=== PATIENT | female | born 1945 | race Caucasian/White ===

== ENCOUNTER 2016-04-19 11:27 | Inpatient (IN) | payer MEDICARE, OTHER ==
[~2016-04-19] VITALS: Ht 147.3 cm; Wt 78.0 kg
[2016-04-19] VITALS (14 sets, daily range): BP systolic 115–177; BP diastolic 58–91; PULSE 68–98; RESP 12–16; TEMP 97.5–97.6; O2SAT 92–100
[~2016-04-19 11:27] MED LIST: ACET325 PO; ALBU0.086 NEB; CARV3.12 PO; CLOP75 PO; DOCU1CAP39 PO; FURO20 PO; GLIP5 PO; GLUC1KIT IM; GLUC40GE PO; GLYB1TAB50 PO; HUMSS; IPRAAER INH; ISOS30 PO; KCL20 PO; LACT10SO27 PO; LEXA10TA PO; LISI5 PO; MEDR4PAK3 PO; PERC10TA27 PO; SENN-29 PO; SUCR1TAB PO
[2016-04-19] MEDS ORDERED: SODIUM CHLOR 0.9% 1000 ML INJ 1,000 ML IV ONE ×3 (11:32→11:54)
[2016-04-19 11:42] LABS: I-STAT POTASSIUM 4.2 MMOL/L (3.5-4.9); I-STAT SODIUM 140 MMOL/L (138-146)
[2016-04-19 11:46] LABS: AUTOMATED NEUTROPHIL # 12.8 TH/MM3 (1.8-7.7); BASOPHIL % 0.2 % (0.0-2.0); EOSINOPHIL % 0.2 % (0.0-4.0); HEMATOCRIT 34.1 % (35.0-46.0); LYMPH % 8.8 % (9.0-44.0); LYMPHOCYTE # 1.4 TH/MM3 (1.0-4.8); MEAN CELL VOLUME 89.4 FL (80.0-100.0); MEAN CORPUSCULAR HGB CONC 31.3 % (32.0-36.0); MONO % 7.9 % (0.0-8.0); NEUT % 82.9 % (16.0-70.0); PLATELET COUNT 225 TH/MM3 (150-450); RED BLOOD COUNT 3.82 MIL/MM3 (4.00-5.30); RED CELL DISTRIBUTION WIDTH 18.8 % (11.6-17.2); WHITE BLOOD COUNT 15.4 TH/MM3 (4.0-11.0)
[2016-04-19] MEDS ORDERED: VANCOMYCIN INJ 1,000 MG in SODIUM CHLOR 0.9% 250 ML INJ 250 ML IV STA (11:54)
[2016-04-19] MEDS ORDERED: PIPERACIL-TAZO 4.5 GM PREMIX 100 ML IV STA (11:54)
[2016-04-19] MEDS ORDERED: SODIUM CHLOR 0.9% 1000 ML INJ 100 ML IV ONE (11:54)
[2016-04-19 11:55] LABS: HEMO FLAGS AUTO DIFF
--- NOTE | 2016-04-19 11:56 | RADRPT ---
EXAM DATE/TIME: 04/19/2016 11:37 [facility] COMPARISON: CT BRAIN W/O CONTRAST, February 01, 2016, 1:43. INDICATIONS : Found unresponsive RADIATION DOSE: 56.35 CTDIvol (mGy) This report was called by Dr. Archuleta to Dr. Muir at 11: 50am MEDICAL HISTORY : Hypertension. Diabetes mellitus type 1. SURGICAL HISTORY : None. ENCOUNTER: Initial ACUITY: 1 day PAIN SCALE: Non-responsive LOCATION: cranial TECHNIQUE: Multiple contiguous axial images were obtained of the head. Using automated exposure control and adj ustment of the mA and/or kV according to patient size, radiation dose was kept as low as reasonably a chievable to obtain optimal diagnostic quality images. FINDINGS: CEREBRUM: The ventricles are normal for age. There is cortical atrophy and moderate microvascular ischemic demy elinative change. No evidence of midline shift, mass lesion, hemorrhage or acute infarction. No ext ra-axial fluid collections are seen. POSTERIOR FOSSA: The cerebellum and brainstem are intact. The 4th ventricle is midline. The cerebellopontine angle i s unremarkable. EXTRACRANIAL: The visualized portion of the orbits is intact. SKULL: The calvaria is intact. No evidence of skull fracture. CONCLUSION: Cortical atrophy and microvascular ischemic demyelinative change. No acute intracranial abnormality i s seen. Reinier Archuleta MD on April 19, 2016 at 11:50 Board Certified Radiologist. This report was verified electronically.
[2016-04-19 11:59] LABS: APTT (PATIENT) 31.3 SEC (24.3-30.1); INTERNATIONAL NORMALIZED RATIO 1.1 RATIO; PROTHROMBIN TIME - PATIENT 12.2 SEC (9.8-11.6)
--- NOTE | 2016-04-19 12:02 | PD ---
HPI Chief Complaint: Stroke Alert Time Seen by Provider: 11:32 Travel History International Travel<30 days: No Contact w/Intl Traveler<30days: No Traveled to known affect area: No History of Present Illness HPI Patient is a 70-year-old female with past medical history of HTN, HLD, DM, dementia, COPD, CAD who presents the emergency department for altered mental status as a stroke alert. Reportedly per patient's care facility, [facility] and [facility], patient was awake and alert and conversing this morning. At approximately 11 AM her mental status decompensated, she is now essentially completely unresponsive and EMS was called. Blood glucose was normal. Reportedly last arm normal at 11 AM. No focal deficit of the extremities, but patient is entirely nonverbal and given her acute change in mental status a stroke alert was called prehospital. Patient is altered and not able to participate with history or physical examination. She is anticoagulated on Plavix. PFSH Past Medical History Depression: Yes Congestive Heart Failure: Yes COPD: Yes Diabetes: Yes Diminished Hearing: No GERD: Yes Hypertension: Yes Neurologic: Yes (NEUROPATHY) ?: Not Past Surgical History Other Surgery: Yes (L AKA) Social History Alcohol Use: No Tobacco Use: No Substance Use: No Allergies-Medications (Allergen,Severity, Reaction): Coded Allergies: Aspirin (Unverified Adverse Reaction, Unknown, 01/31/16) Reported Meds & Prescriptions Reported Meds & Active Scripts Active Reported Albuterol Neb (Albuterol Sulfate) 2.5 Mg/3 Ml Neb 1 Vial NEB Q6HR PRN Combivent Respimat Inh (Ipratropium-Albuterol Inh) 20-100 Shelter/Act Aero 1 Puff INH QID Tylenol (Acetaminophen) 325 Mg Tab 650 Mg PO Q4H PRN Percocet (Oxycodone-Acetaminophen) 10-325 mg Tab 1 Tab PO Q6H PRN Senna (Sennosides) 8.6 Mg Tab 17.2 Mg PO HS Lactulose Liq (Lactulose) 10 Gm/15 Ml Soln 30 Ml PO HS Hold for loose stools Carafate (Sucralfate) 1 Gm Tab 1 Gm PO ACHS On empty stomach Nitro-Dur Patch 24 HR (Nitroglycerin) 0.1 Mg/Hr Patch 0.1 Mg T-DERMAL DAILY Prednisone 20 Mg Tab 20 Mg PO DIRECTED Titrating Dose Protonix Liq (Pantoprazole Sodium) 40 Mg Pkt 40 Mg PO DAILY Potassium Chloride Liq (Potassium Chloride) 20 Meq/15 Ml Soln 40 Meq PO DAILY Lasix (Furosemide) 20 Mg Tab 20 Mg PO DAILY Lisinopril 2.5 Mg Tab 2.5 Mg PO BID Hold if SBP <105 or DBP < 65 Coreg (Carvedilol) 3.125 Mg Tab 3.125 Mg PO BID Hold for SBP <100 or DBP <60 Colace (Docusate Sodium) 100 Mg Cap 100 Mg PO BID Hold for loose stool Milk of Magnesia Liq (Magnesium Hydroxide) 400 Mg/5 Ml Susp 30 Ml PO DAILY PRN Omeprazole 40 Mg Cap 40 Mg PO DAILY Glucose Gel (Dextrose) 40 % Gel 1 Tube PO DIRECTED PRN Glucagon Emergency Inj Kit (Glucagon (Rdna) Inj Kit) 1 Mg Kit 1 Mg IM ONCE PRN Glipizide 5 Mg Tab 5 Mg PO DAILY Take 30 minutes before a meal Humalog Inj (Insulin Human Lispro) 1,000 Unit/10 Ml Vial 2-6 Units SQ ACHS Sliding Scale: call md if CBG <60MG?DL or >300MG/DL, 0-59=0 units, notify MD, 60-150=0 units, 151-200=2 units, 201-250=4 units, 251-300=6 units, > 300=6 units/call Lantus Inj (Insulin Glargine) 100 Unit/Ml Inj 15 Units SQ DAILY Plavix (Clopidogrel Bisulfate) 75 Mg Tab 75 Mg PO DAILY Zithromax (Azithromycin) 500 Mg Tab 500 Mg PO DAILY 5 Days Lexapro (Escitalopram Oxalate) 10 Mg Tab 10 Mg PO DAILY Review of Systems ROS Limitations: Clinical Condition, Altered Mental Status Physical Exam Exam Limitations: Clinical Condition, Altered Mental Status Narrative GENERAL: Obese female in no acute distress SKIN: Warm and dry. HEAD: Normocephalic. EYES: Pupils equal and round. 3 mm. No scleral icterus. No injection or drainage. ENT: No nasal bleeding or discharge. Mucous membranes dry. Gag reflex intact. NECK: Supple without nuchal rigidity CARDIOVASCULAR: Regular rate and rhythm. No murmur appreciated. RESPIRATORY: No accessory muscle use. Clear to auscultation. Breath sounds equal bilaterally. GASTROINTESTINAL: Abdomen soft, non-tender, nondistended. Obese MUSCULOSKELETAL: No obvious deformities. Left lower extremity AKA NEUROLOGICAL: Unresponsive. Patient does not follow any commands, answer questions appropriately. Nonverbal. She is not able to test for visual garces , but no gaze deficit. No facial palsy. Patient does not move the arms of the legs at all. She does have a left lower extremity AKA. No obvious ataxia, unable to test for this. With noxious stimuli patient does not respond. Patient is mute without any speech. No obvious neglect. NIHSS 24. PSYCHIATRIC: Deferred given mental status Data Data Last Documented VS Vital Signs Date Time Temp Pulse Resp B/P Pulse Ox O2 Delivery O2 Flow Rate FiO2 04/19/16 12:49 79 14 177/91 100 Ventilator 100 04/19/16 11:50 15 04/19/16 11:31 97.6 Orders Diet Npo (04/19/16 Lunch) Activity Bed Rest (04/19/16 ) Electrocardiogram (04/19/16 ) I-Stat Creatinine (04/19/16 11:32) I-Stat Profile (04/19/16 11:32) Prothrombin Time / Inr (Pt) (04/19/16 11:32) Act Partial Throm Time (Ptt) (04/19/16 11:32) Complete Blood Count With Diff (04/19/16 11:32) Fibrinogen (04/19/16 11:32) Creatine Kinase (Cpk) (04/19/16 11:32) Troponin I (04/19/16 11:32) Ua Includes Microscopic (04/19/16 11:32) Drug Screen, Random Urine (04/19/16 11:32) Type And Screen (04/19/16 11:32) Ct Brain W/O Iv Contrast(Rout) (04/19/16 ) Consult Neurology (04/19/16 ) Blood Glucose (04/19/16 11:32) Ecg Monitoring (04/19/16 11:32) Neuro Checks Q2HX12,Q4H (04/19/16 11:32) Nursing Bedside Swallow Assess .ONCE (04/19/16 11:32) Iv Access Insert/Monitor (04/19/16 11:32) NPO (04/19/16 11:32) Oximetry (04/19/16 11:32) Oxygen Administration (04/19/16 11:32) Sodium Chlor 0.9% 1000 Ml Inj (Ns 1000 M (04/19/16 11:32) Resp Oxygen Kimo C Titrat 1-4 L (04/19/16 11:32) Cath For Specimen (04/19/16 11:32) Lactic Acid Sepsis Protocol (04/19/16 11:32) Urinalysis - C+S If Indicated (04/19/16 11:32) Blood Culture (04/19/16 11:32) Chest, Single Ap (04/19/16 11:32) Vancomycin Inj (Vancomycin Inj) (04/19/16 11:54) Piperacil-Tazo 4.5 Gm Premix (Zosyn 4.5 (04/19/16 11:54) Sodium Chlor 0.9% 1000 Ml Inj (Ns 1000 M (04/19/16 11:54) Sodium Chlor 0.9% 1000 Ml Inj (Ns 1000 M (04/19/16 11:54) Sodium Chlor 0.9% 1000 Ml Inj (Ns 1000 M (04/19/16 11:54) Influenzae A/B Antigen (04/19/16 12:07) Pneumococcal Urinary Antigen (04/19/16 12:07) Legionella Urinary Antigen (04/19/16 12:07) Chest, Single Ap (04/19/16 12:11) Arterial Blood Gas (Abg) (04/19/16 12:11) Ng Gastric Tube Insert/Monitor (04/19/16 12:11) Urinary Catheter Insert/Apply (04/19/16 12:11) Etomidate Inj (Amidate Inj) (04/19/16 12:15) Succinylcholine Inj (Quelicin Inj) (04/19/16 12:15) Sodium Chloride 0.9% Flush (Ns Flush) (04/19/16 12:15) (Hub Use Only)Inp Phy Cons/Ref (04/19/16 ) Phenylephrine Inj (Neosynephrine Inj) (04/19/16 12:25) Phenyleph/Ns 1000 Mcg/10ml Syr (Neosynep (04/19/16 12:26) Restraints Non-Violent SHYLA.Q3H (04/19/16 12:33) Admit Order (Ed Use Only) (04/19/16 12:58) Labs Laboratory Tests Test 04/19/16 04/19/16 04/19/16 12/20/16 11:30 12:05 12:40 13:00 White Blood Count 15.4 TH/MM3 Red Blood Count 3.82 MIL/MM3 Hemoglobin 10.7 GM/DL Bedside Hemoglobin 12.2 G/DL Hematocrit 34.1 % Bedside Hematocrit 36.0 % Mean Corpuscular Volume 89.4 FL Mean Corpuscular Hemoglobin 28.0 PG Mean Corpuscular Hemoglobin 31.3 % Concent Red Cell Distribution Width 18.8 % Platelet Count 225 TH/MM3 Mean Platelet Volume 9.8 FL Neutrophils (%) (Auto) 82.9 % Lymphocytes (%) (Auto) 8.8 % Monocytes (%) (Auto) 7.9 % Eosinophils (%) (Auto) 0.2 % Basophils (%) (Auto) 0.2 % Neutrophils # (Auto) 12.8 TH/MM3 Lymphocytes # (Auto) 1.4 TH/MM3 Monocytes # (Auto) 1.2 TH/MM3 Eosinophils # (Auto) 0.0 TH/MM3 Basophils # (Auto) 0.0 TH/MM3 CBC Comment AUTO DIFF Differential Total Cells 100 Counted Neutrophils % (Manual) 86 % Band Neutrophils % 2 % Lymphocytes % 6 % Monocytes % 4 % Neutrophils # (Manual) 13.9 TH/MM3 Metamyelocytes 2 % Differential Comment FINAL DIFF MANUAL Platelet Estimate NORMAL Platelet Morphology Comment ENLARGED Red Cell Morphology Comment NORMAL Prothrombin Time 12.2 SEC Prothromb Time International 1.1 RATIO Ratio Activated Partial 31.3 SEC Thromboplast Time Fibrinogen 771 mg/dL Bedside Sodium 140 MMOL/L Bedside Potassium 4.2 MMOL/L Bedside Chloride 98 MMOL/L Bedside Blood Urea Nitrogen 24 MG/DL Bedside Creatinine 0.7 MG/DL Bedside Glucose 173 MG/DL Total Creatine Kinase 19 U/L Troponin I LESS THAN 0.02 NG/ML Lactic Acid Level 0.7 mmol/L Urine Color YELLOW Urine Turbidity HAZY Urine pH 5.5 Urine Specific [place] 1.019 Urine Protein 30 mg/dL Urine Glucose (UA) TRACE mg/dL Urine Ketones NEG mg/dL Urine Occult Blood NEG Urine Nitrite POS Urine Bilirubin NEG Urine Urobilinogen LESS THAN 2.0 MG/DL Urine Leukocyte Esterase LARGE Urine RBC 24 /hpf Urine WBC 62 /hpf Urine WBC Clumps MOD Urine Squamous Epithelial <1 /hpf Cells Urine Bacteria MANY /hpf Urine Hyaline Casts 30 /lpf Urine Yeast (Budding) MOD Microscopic Urinalysis Comment CATH-CULTURE IND Blood Gas Puncture Site LT BRACHIAL Blood Gas Patient Temperature 98.6 Blood Gas HCO3 32 mmol/L Blood Gas Base Excess 7.5 mmol/L Blood Gas Oxygen Saturation 96 % Arterial Blood pH 7.39 Arterial Blood Partial 54 mmHg Pressure CO2 Arterial Blood Partial 165 mmHG Pressure O2 Arterial Blood Oxygen Content 14.1 Vol % Arterial Blood 1.9 % Carboxyhemoglobin Arterial Blood Methemoglobin 1.4 % Blood Gas Hemoglobin 10.2 G/DL Oxygen Delivery Device VENTILATOR Blood Gas Ventilator Setting Blood Gas Inspired Oxygen 100 % MDM Medical Decision Making Medical Screen Exam Complete: Yes Emergency Medical Condition: Yes Medical Record Reviewed: Yes Differential Diagnosis 70-year-old female with past medical history of HTN, HLD, DM, dementia, COPD, CAD who presents the emergency department for altered mental status as a stroke alert. Patient is altered, Narrative Course NIHSS 24 calculated at 11:30. Patient is not a candidate for TPA as I do not believe this is a stroke, and she is anticoagulated on Plavix. Case was discussed with Dr. Dixon, neurology, who agrees this sounds more suspicious for infectious etiology and not CVA. Patient transported to CT emergently were CT of the brain was obtained and negative for any acute abnormalities. Patient was brought back to the emergency department in chest x-ray performed showing a right sided infiltrate. She was empirically treat with Zosyn, vancomycin, 30 mg /kg normal saline bolus. Patient reexamined serially, with progressive loss of gag reflex. Patient was intubated, please see procedure note. Repeat chest x- ray shows endotracheal tube in all OG tube in good position. Foote was placed. Twelve-lead EKG shows sinus rhythm with PVCs but no notable ST abnormalities, normal intervals. CBC, i-STAT, coags, fibrinogen, CPK, troponin, lactate, urinalysis, urine pneumococcal and Legionella antigen, influenza, blood cultures obtained and notable for CBC 15.4 with left shift. Fibrinogen 771. Critical Care Narrative Aggregate critical care time was 55 minutes. Time to perform other separately billable procedures was not included in the critical care time. My time did not include minutes spent treating any other patients simultaneously or on activities that did not directly contribute to the patient's treatment. The services I provided to this patient were to treat and/or prevent clinically significant deterioration that could result in: Neurologic decompensation, cardiopulmonary decompensation, , disability I provided critical care services requiring my management, as noted below: Chart data review, documentation time, medication orders and management, vital sign assessments/reviewing monitor data, ordering and reviewing lab tests, ordering and interpreting/reviewing x-rays and diagnostic studies, care of the patient and discussion of the patient with the admitting physicians. Procedures Procedure Narrative After the risks and benefits were discussed the following procedure was performed: INTUBATION: The patient was put in optimal position for the procedure. Rapid sequence intubation was initiated by me using 10 milligrams of etomidate IV and 150 milligrams of succinylcholine IV. The patient was intubated with a 8-0 cuffed endotracheal tube. Tube placement was confirmed by visualization of the tube and balloon passing through the cords, capnometry and subsequent chest x- ray. Breath sounds were equal and well aerated bilaterally postintubation. No breath sounds over stomach. Patient tolerated procedure well. Sepsis Criteria SIRS Criteria (2 or more): Heart rate over 90 Sepsis Criteria (SIRS+source): Infect source susp/known Severe Sepsis (+one): Organ Dysfunction Criteria Outcome: Meets SIRS criteria, Meets sepsis criteria, Meets severe sepsis criteria Diagnosis Primary Impression: Acute respiratory failure Qualified Code: J96.00 - Acute respiratory failure, unspecified whether with hypoxia or hypercapnia Additional Impressions: Severe sepsis Pneumonia Qualified Code: J18.1 - Pneumonia of right upper lobe due to infectious organism Altered mental status Qualified Code: R41.0 - Delirium Leukocytosis Qualified Code: D72.829 - Leukocytosis, unspecified type Urinary tract infection Qualified Code: N39.0 - Urinary tract infection with hematuria, site unspecified Admitting Information Admitting Physician Requests: Admit Liss Mauricio MD Apr 19, 2016 12:02
[2016-04-19 12:14] LABS: CREATINE KINASE 19 U/L (26-192)
--- NOTE | 2016-04-19 12:14 | RADRPT ---
EXAM DATE/TIME: 04/19/2016 11:46 [facility] COMPARISON: CHEST SINGLE AP, January 31, 2016, 23:08. INDICATIONS : Short of breath. MEDICAL HISTORY : None. SURGICAL HISTORY : None. ENCOUNTER: Initial ACUITY: 1 day PAIN SCORE: Non-responsive. LOCATION: Bilateral chest FINDINGS: There are new consolidation is in the right upper lobe. The left lung is clear. The heart and pulmon ashley vascularity are normal. The portion of the bony skeleton visualized is unremarkable. CONCLUSION: New consolidative changes right upper lobe suspicious for inflammatory process. Scott Archuleta MD FACR on April 19, 2016 at 12:09 Board Certified Radiologist. This report was verified electronically.
[2016-04-19] MEDS ORDERED: SUCCINYLCHOLINE CHLORIDE 200 MG/10 ML VIAL IVP ONE (12:15)
[2016-04-19] MEDS ORDERED: ETOMIDATE 20 MG/10 ML VIAL IVP ONE (12:15)
[2016-04-19] MEDS ORDERED: SODIUM CHLORIDE 0.9% FLUSH 5 ML FLUSH IVF PRN ×2 (12:15→14:45)
[2016-04-19] MEDS ORDERED: PHENYLEPHRINE HCL 10 MG/ML VIAL ONE (12:25)
[2016-04-19] MEDS ORDERED: PHENYLEPH/NS 1000 MCG/10 ML SYR ONE (12:26)
[2016-04-19 12:46] LABS: BANDS 2 % (0-6); METAMYELOCYTES 2 % (0-1); NEUTROPHIL # MANUAL DIFF 13.9 TH/MM3 (1.8-7.7); POLYS (SEG NEUTROPHILS) 86 % (16-70); WBC DIFF SAMPLE 100
[2016-04-19 12:47] LABS: PLATELET ESTIMATE SMEAR NORMAL (NORMAL); PLATELET MORPHOLOGY ENLARGED (NORMAL); SCAN/DIFF FINAL DIFF MANUAL
[2016-04-19 13:10] LABS: BLOOD GAS BASE EXCESS 7.5 mmol/L (-2-2); BLOOD GAS CARBOXYHEMOGLOBIN 1.9 % (0-4); BLOOD GAS HCO3 32 mmol/L (22-26); BLOOD GAS METHEMOGLOBIN 1.4 % (0-2); BLOOD GAS O2 HGB SATURATION 96 % (90-100); BLOOD GAS OXYGEN CONTENT 14.1 Vol % (12.0-20.0); BLOOD GAS PCO2 54 mmHg (38-42); BLOOD GAS PO2 165 mmHG (61-120); BLOOD GAS TOTAL HGB 10.2 G/DL (12.0-16.0); TEMP CORR TO 98.6
--- NOTE | 2016-04-19 13:10 | RADRPT ---
EXAM DATE/TIME: 04/19/2016 12:44 [facility] COMPARISON: CHEST SINGLE AP, April 19, 2016, 11:46. INDICATIONS: Post intubation. MEDICAL HISTORY: None. SURGICAL HISTORY: None. ENCOUNTER: Initial ACUITY: 1 day PAIN SCORE: Non-responsive. LOCATION: Bilateral chest FINDINGS: ET tube is in good position. Again seen is the consolidation in the right upper lobe. Left lung is clear. Heart and pulmonary vascularity is normal. CONCLUSION: ET tube in good position. Scott Archuleta MD FACR on April 19, 2016 at 13:06 Board Certified Radiologist. This report was verified electronically.
[2016-04-19 13:11] LABS: BACTERIA, URINE MANY /hpf; BLOOD, URINE NEG (NEG); GLUCOSE,URINE TRACE mg/dL (NEG); HYALINE CAST, URINE 30 /lpf (RARE); KETONE, URINE NEG (NEG); PH, URINE 5.5 (5.0-8.5); SQUAMOUS EPITHELIAL CELL URINE <1 /hpf (0-5); URINE COLOR YELLOW (YELLW/STRAW)
[2016-04-19 13:11] LABS: CRITICAL VALUE YES; DRAW SITE LT BRACHIAL; FIO2 100 %; NUMBER OF ARTERIAL PUNCTURES 1; OXYGEN DEVICE VENTILATOR; STAT YES; ULNAR PULSE PRESENT
[2016-04-19] MEDS ORDERED: GLIP5TAB8 PO (13:14)
[2016-04-19] MEDS ORDERED: OMEP40CA2 PO (13:14)
[2016-04-19] MEDS ORDERED: IPRAAER INH (13:14)
[2016-04-19] MEDS ORDERED: PRED20 PO (13:14)
[2016-04-19] MEDS ORDERED: TYLE325T PO (13:14)
[2016-04-19] MEDS ORDERED: CARV3.125 PO (13:14)
[2016-04-19] MEDS ORDERED: LISI2.5T3 PO (13:14)
[2016-04-19] MEDS ORDERED: NITR0.1D T-DERMAL (13:14)
[2016-04-19] MEDS ORDERED: PERC10TA27 PO (13:14)
[2016-04-19] MEDS ORDERED: ALBU0.08 NEB (13:14)
[2016-04-19] MEDS ORDERED: LANTUS2P SQ (13:14)
[2016-04-19] MEDS ORDERED: FURO1TAB62 PO (13:14)
[2016-04-19] MEDS ORDERED: ZITH500T PO (13:14)
[2016-04-19] MEDS ORDERED: PLAV75TA29 PO (13:14)
[2016-04-19] MEDS ORDERED: SENN8.6T5 PO (13:14)
[2016-04-19] MEDS ORDERED: LEXA10TA PO (13:14)
[2016-04-19] MEDS ORDERED: MILKSUS PO (13:14)
[2016-04-19] MEDS ORDERED: HUMALOG SQ (13:14)
[2016-04-19] MEDS ORDERED: PROTPAK PO (13:14)
[2016-04-19] MEDS ORDERED: LACT10SO PO (13:14)
[2016-04-19] MEDS ORDERED: CARA1TAB6 PO (13:14)
[2016-04-19] MEDS ORDERED: GLUC1KIT IM (13:14)
[2016-04-19] MEDS ORDERED: POTA10SO12 PO (13:14)
[2016-04-19] MEDS ORDERED: GLUC40GE PO (13:14)
[2016-04-19] MEDS ORDERED: COLA100C3 PO (13:14)
[2016-04-19 13:15] LABS: COMMENT (UR) CATH-CULTURE IND; CULTURE IF INDICATED CATH CULTURE IND; NITRITE,URINE POS (NEG)
[2016-04-19 13:28] LABS: AMPHETAMINE, URINE NEG (NEG); BARBITURATES, URINE NEG (NEG); COCAINE, URINE NEG (NEG)
[2016-04-19] MEDS ORDERED: Vancomycin Consult Pharmacy 1 EA OTHER SCH (14:45)
[2016-04-19] MEDS ORDERED: MISCELLANEOUS NURSING INFORMATION XX SCH (14:45)
[2016-04-19] MEDS ORDERED: CHLORHEXIDINE GLUCONATE 2 % 1 PACK (2 CLOTHS) TOP PRN (14:45)
[2016-04-19] MEDS: RESP: ALBUTEROL 2.5 MG/IPRATROPIUM 0.5 MG NEB (SCH) NEB ×2 (15:25→21:30)
[2016-04-19] MEDS: SODIUM CHLOR 0.9% 1000 ML INJ 1,000 ML IV SCH ×2 (15:44→23:12)
[2016-04-19] MEDS: ENOXAPARIN SODIUM 40 MG/0.4 ML SYRINGE SQ SCH (16:07)
--- NOTE | 2016-04-19 16:51 | HHI.HP ---
HPI Service Critical Care Medicine Primary Care Physician Unknown Admission Diagnosis acute resp failure, RUL pna, severe sepsis Diagnosis: Chief Complaint: altered mental status Travel History International Travel<30 Days: No Contact w/Intl Traveler <30 Da: No Traveled to Known Affected Are: No Sepsis Criteria SIRS Criteria (2 or more): Heart rate over 90, WBC > 14395, < 4000 or > 10% bands Sepsis Criteria (SIRS+source): Infect source susp/known Severe Sepsis (+one): Organ Dysfunction Criteria Outcome: Meets severe sepsis criteria History of Present Illness Patient is a 70-year-old female with past medical history of HTN, HLD, DM, dementia, COPD, CAD who presents the emergency department for altered mental status as a stroke alert. Reportedly per patient's care facility, [facility], patient was awake and alert and conversing this morning. At approximately 11 AM her mental status decompensated, she became essentially completely unresponsive and EMS was called. Blood glucose was normal. Reportedly last seen normal at 11 AM. No focal deficit of the extremities, but patient was entirely nonverbal and given her acute change in mental status a stroke alert was called prehospital. Patient was altered and not able to participate with history or physical examination. She is anticoagulated on Plavix. Patient was evaluated by ER physician and in view of inability to protect airway and unresponsiveness was intubated and placed on mechanical ventilation. She received a 10 mg and succinylcholine 150 mg for intubation however following that has not required any sedation. Chest x-ray showed right upper lobe infiltrate, head CT was negative for bleed. Case was discussed by ER physician and neurology Dr. Dixon, patient was not deemed to be a candidate for TPA and there was a question whether this was a stroke or sepsis with pneumonia/UTI causing altered mental status. Patient was accepted for admission by critical care medicine service. When I evaluated the patient she was orally intubated on mechanical ventilation essentially unresponsive. History was obtained by discussion with ER physician and reviewing records. History PFSH Past Medical History Depression: Yes Congestive Heart Failure: Yes COPD: Yes Diabetes: Yes Diminished Hearing: No GERD: Yes Hypertension: Yes Neurologic: Yes (NEUROPATHY) ?: Not Past Surgical History Other Surgery: Yes (L AKA) Social History Alcohol Use: No Tobacco Use: No Substance Use: No Allergies-Medications Allergies-Medications (Allergen,Severity, Reaction): Coded Allergies: Aspirin (Unverified Adverse Reaction, Unknown, 01/31/16) Reported Meds & Prescriptions Reported Meds & Active Scripts Active Reported Albuterol Neb (Albuterol Sulfate) 2.5 Mg/3 Ml Neb 1 Vial NEB Q6HR PRN Combivent Respimat Inh (Ipratropium-Albuterol Inh) 20-100 Snf/Act Aero 1 Puff INH QID Tylenol (Acetaminophen) 325 Mg Tab 650 Mg PO Q4H PRN Percocet (Oxycodone-Acetaminophen) 10-325 mg Tab 1 Tab PO Q6H PRN Senna (Sennosides) 8.6 Mg Tab 17.2 Mg PO HS Lactulose Liq (Lactulose) 10 Gm/15 Ml Soln 30 Ml PO HS Hold for loose stools Carafate (Sucralfate) 1 Gm Tab 1 Gm PO ACHS On empty stomach Nitro-Dur Patch 24 HR (Nitroglycerin) 0.1 Mg/Hr Patch 0.1 Mg T-DERMAL DAILY Prednisone 20 Mg Tab 20 Mg PO DIRECTED Titrating Dose Protonix Liq (Pantoprazole Sodium) 40 Mg Pkt 40 Mg PO DAILY Potassium Chloride Liq (Potassium Chloride) 20 Meq/15 Ml Soln 40 Meq PO DAILY Lasix (Furosemide) 20 Mg Tab 20 Mg PO DAILY Lisinopril 2.5 Mg Tab 2.5 Mg PO BID Hold if SBP <105 or DBP < 65 Coreg (Carvedilol) 3.125 Mg Tab 3.125 Mg PO BID Hold for SBP <100 or DBP <60 Colace (Docusate Sodium) 100 Mg Cap 100 Mg PO BID Hold for loose stool Milk of Magnesia Liq (Magnesium Hydroxide) 400 Mg/5 Ml Susp 30 Ml PO DAILY PRN Omeprazole 40 Mg Cap 40 Mg PO DAILY Glucose Gel (Dextrose) 40 % Gel 1 Tube PO DIRECTED PRN Glucagon Emergency Inj Kit (Glucagon (Rdna) Inj Kit) 1 Mg Kit 1 Mg IM ONCE PRN Glipizide 5 Mg Tab 5 Mg PO DAILY Take 30 minutes before a meal Humalog Inj (Insulin Human Lispro) 1,000 Unit/10 Ml Vial 2-6 Units SQ ACHS Sliding Scale: call md if CBG <60MG?DL or >300MG/DL, 0-59=0 units, notify MD, 60-150=0 units, 151-200=2 units, 201-250=4 units, 251-300=6 units, > 300=6 units/call Lantus Inj (Insulin Glargine) 100 Unit/Ml Inj 15 Units SQ DAILY Plavix (Clopidogrel Bisulfate) 75 Mg Tab 75 Mg PO DAILY Zithromax (Azithromycin) 500 Mg Tab 500 Mg PO DAILY 5 Days Lexapro (Escitalopram Oxalate) 10 Mg Tab 10 Mg PO DAILY ROS Review of Systems ROS Limitations: Clinical Condition, Altered Mental Status Physical Exam Vital Signs Vital Signs Date Time Temp Pulse Resp B/P Pulse Ox O2 Delivery O2 Flow Rate FiO2 04/19/16 15:44 60 04/19/16 15:44 85 12 135/70 98 Ventilator 60 04/19/16 14:45 98 60 04/19/16 14:32 75 16 172/75 92 Ventilator 50 04/19/16 13:45 100 04/19/16 13:44 76 16 144/77 100 Ventilator 100 04/19/16 12:49 79 14 177/91 100 Ventilator 100 04/19/16 12:30 100 100 04/19/16 11:50 94 Non-Rebreather 15 04/19/16 11:31 97.6 98 16 158/63 94 Physical Exam HEENT/ Neuro: Encephalopathic, comatose, orally intubated, Pallor present, no icterus, tongue/ mucosa dry. Pupils 3 mm bilaterally reacting actively to light. No response to painful stimuli at the time of my evaluation Neck: No JVD Chest/Pulm: on mech vent, good air entry bilaterally, no wheezing or crackles. Scattered rhonchi CVS: S1-S2 regular, no murmur GI/abdomen: soft, nontender, bowel sounds sluggish Extremities: warm bilaterally. left LE AKA, no edema. Laboratory Laboratory Tests Test 04/19/16 04/19/16 04/19/16 04/19/16 11:30 12:05 12:40 13:00 White Blood Count 15.4 Red Blood Count 3.82 Hemoglobin 10.7 Bedside Hemoglobin 12.2 Hematocrit 34.1 Bedside Hematocrit 36.0 Mean Corpuscular Volume 89.4 Mean Corpuscular Hemoglobin 28.0 Mean Corpuscular Hemoglobin 31.3 Concent Red Cell Distribution Width 18.8 Platelet Count 225 Mean Platelet Volume 9.8 Neutrophils (%) (Auto) 82.9 Lymphocytes (%) (Auto) 8.8 Monocytes (%) (Auto) 7.9 Eosinophils (%) (Auto) 0.2 Basophils (%) (Auto) 0.2 Neutrophils # (Auto) 12.8 Lymphocytes # (Auto) 1.4 Monocytes # (Auto) 1.2 Eosinophils # (Auto) 0.0 Basophils # (Auto) 0.0 CBC Comment AUTO DIFF Differential Total Cells 100 Counted Neutrophils % (Manual) 86 Band Neutrophils % 2 Lymphocytes % 6 Monocytes % 4 Neutrophils # (Manual) 13.9 Metamyelocytes 2 Differential Comment FINAL DIFF MANUAL Platelet Estimate NORMAL Platelet Morphology Comment ENLARGED Red Cell Morphology Comment NORMAL Prothrombin Time 12.2 Prothromb Time International 1.1 Ratio Activated Partial 31.3 Thromboplast Time Fibrinogen 771 Bedside Sodium 140 Bedside Potassium 4.2 Bedside Chloride 98 Bedside Blood Urea Nitrogen 24 Bedside Creatinine 0.7 Bedside Glucose 173 Total Creatine Kinase 19 Troponin I LESS THAN 0.02 Lactic Acid Level 0.7 Urine Color YELLOW Urine Turbidity HAZY Urine pH 5.5 Urine Specific [place] 1.019 Urine Protein 30 Urine Glucose (UA) TRACE Urine Ketones NEG Urine Occult Blood NEG Urine Nitrite POS Urine Bilirubin NEG Urine Urobilinogen LESS THAN 2.0 Urine Leukocyte Esterase LARGE Urine RBC 24 Urine WBC 62 Urine WBC Clumps MOD Urine Squamous Epithelial <1 Cells Urine Bacteria MANY Urine Hyaline Casts 30 Urine Yeast (Budding) MOD Microscopic Urinalysis Comment CATH-CULTURE IND Urine Opiates Screen NEG Urine Barbiturates Screen NEG Urine Amphetamines Screen NEG Urine Benzodiazepines Screen NEG Urine Cocaine Screen NEG Urine Cannabinoids Screen NEG Blood Gas Puncture Site LT BRACHIAL Blood Gas Patient Temperature 98.6 Blood Gas HCO3 32 Blood Gas Base Excess 7.5 Blood Gas Oxygen Saturation 96 Arterial Blood pH 7.39 Arterial Blood Partial 54 Pressure CO2 Arterial Blood Partial 165 Pressure O2 Arterial Blood Oxygen Content 14.1 Arterial Blood 1.9 Carboxyhemoglobin Arterial Blood Methemoglobin 1.4 Blood Gas Hemoglobin 10.2 Oxygen Delivery Device VENTILATOR Blood Gas Ventilator Setting Blood Gas Inspired Oxygen 100 Test 04/19/16 13:09 Blood Type O POSITIVE Antibody Screen NEGATIVE Blood Bank Comment Date/Time Procedure Status Source Growth 04/19/16 13:40 Influenza Types A,B Antigen (SONAL) - Final Complete Nasal Washing NEGATIVE FOR FLU A AND B ANTIGEN.... 04/19/16 12:40 Urine Culture Received Urine Catheterized Urine Pending 04/19/16 12:40 Legionella Antigen - Final Complete Urine Catheterized Urine PRESUMPTIVE NEGATIVE FOR LEGIONELLA P... 04/19/16 12:40 Streptococcus pneumoniae Antigen (M - Final Complete Urine Catheterized Urine PRESUMPTIVE NEGATIVE FOR STREPTOCOCCU... 04/19/16 12:05 Aerobic Blood Culture Received Blood Peripheral Pending 04/19/16 12:05 Anaerobic Blood Culture Received Blood Peripheral Pending Result Diagram: 04/19/16 1130 Septic Shock Reassessment Heart: Regular rate and rhythm Lungs: Clear Skin: Warm Peripheral Pulses: Bounding Right Radial Capillary Refill: Brisk Assessment and Plan Assessment and Plan 70 year-old female with: Encephalopathy severe Sepsis Pneumonia UTI Dementia COPD Coronary artery disease Diabetes mellitus Hypertension Hyperlipidemia History of CHF Dementia Plan: Neuro: Avoid sedatives. We'll use propofol as needed while intubated for vent synchrony. Awaiting neurology evaluation. Head CT negative for bleed. Altered mental status possibly secondary to delirium. May require MRI brain. Will defer to neurology. Cardiovascular: IV hydration, watch for hypotension. Continue Coreg, Plavix. Pulmonary: Intubated for airway protection. Continue mechanical ventilation, vent bundle, bronchodilators as needed. Pulmonary toilet. Sputum to be sent for Gram stain and cultures. GI/liver: Start tube feeds and advanced to goal as tolerated /renal: IV hydration, strict intake output, monitor and replete electrolytes, follow BUN/creatinine. ID: Follow-up cultures. Empiric antibiotic coverage with IV vancomycin/Zosyn. Endocrine: SSI for glycemic control as needed Heme: Follow CBC Prophylaxis: Zantac/SCDs/Lovenox. Condition critical Time spent on critical care excluding procedures 60 minutes Bhavesh Monroe MD Apr 19, 2016 16:51
--- NOTE | 2016-04-19 17:04 | MB ---
cc: NATALIO BUSBY M.D. DATE OF CONSULTATION: 04/19/2016 DATE OF : 1945, 70 years old. REASON FOR CONSULTATION Stroke alert. HISTORY OF PRESENT ILLNESS: The patient was found unresponsive, possibly septic, and the patient did not receive any TPA. The patient has a history of hypertension, hyperlipidemia, diabetes, dementia, COPD, heart disease. The patient came to the ER with altered mental status per patient's care facility, [facility]. She was awake, alert, conversing in the morning. At about 11 o'clock her mental status decompensated to the point where she became unresponsive. EMS was called. Blood glucose I am told was normal. Last seen normal around 11 o'clock this morning per the ER before they intubated her and paralyzed her. She had no deficits in the extremities. She has left BKA, nonverbal. She is at the rehab center on Plavix. PAST MEDICAL HISTORY: As stated. ALLERGIES: ASPIRIN. MEDICATIONS: Please refer to EMR. PHYSICAL EXAMINATION: VITAL SIGNS: Temperature is 97.6 rectal. Pulse 76, respiratory rate 16, blood pressure 144/77. Sating at 100% FIO2. GENERAL: The patient is intubated, unresponsive. Pupils are pinpoint, does not withdraw to sternal rub. No gaze deviation, does not have any reflexes. Right toe is fine and left is AKA. NIH at this point is at 24. Cerebellar cannot be assessed. LABORATORY DATA: Reviewed. White count 15.4, hemoglobin 10.7, hematocrit 34.1, platelets 125,000, 86% neutrophils, two bands. Chemistries: Glucose 173, lactic acid 0.7. CK 19, troponin less than 0.02. Toxicology screen negative. Urine: 62 white cells, moderate clumps, culture is indicated and pending. Nasal wash negative for influenzae A and B. Head CT, atrophy with white matter disease, no acute findings. Chest x-ray: New consolidative changes, right upper lobe, suspicious for inflammation. IMPRESSION: The patient is a 70 year-old woman presented unresponsive to the ER. Doubt this is a TPA candidate, doubt this is a stroke. Likely this is a case of sepsis. She is already on Plavix. Will continue that via NG tube. Continue care per guardian family member for her right lung infiltrate. She was treated empirically with Zosyn, vancomycin, started on some saline. When she is more stable, we can do an MRI to see if there is a stroke, however, initial CT is negative. Depending on course, further recommendations to be made accordingly. MD PEDRO Rodriguez/CRISTÓBAL /2:03 PM /4:36 PM
[2016-04-19] MEDS: PIPERACIL-TAZO 4.5 GM PREMIX 100 ML IV SCH (17:53)
[2016-04-19 20:01] LABS: ANION GAP 7 MEQ/L (5-15); AST (GOT) 18 U/L (15-37); BICARBONATE 31.6 MEQ/L (21.0-32.0); BLOOD UREA NITROGEN 16 MG/DL (7-18); CHLORIDE 105 MEQ/L (98-107); GLOMERULAR FILTRATION RATE 95 ML/MIN (>89); POTASSIUM 3.4 MEQ/L (3.5-5.1); SODIUM (NA) 144 MEQ/L (136-145)
[2016-04-19 20:04] LABS: ALKALINE PHOSPHATASE 125 U/L (45-117); ALT (GPT) 16 U/L (10-53); TOTAL BILIRUBIN ADULT 0.3 MG/DL (0.2-1.0)
[2016-04-19] MEDS: SODIUM CHLORIDE 0.9% FLUSH 5 ML FLUSH IVF SCH (20:56)
[2016-04-19] MEDS: CHLORHEXIDINE 0.12% (ORAL KIT) 15 ML CUP MT SCH (20:56)
[2016-04-19] MEDS: PROPOFOL 1000 MG/100 ML INJ 100 ML IV SCH (21:38)
[2016-04-19] MEDS ORDERED: VANCOMYCIN INJ 1,000 MG in SODIUM CHLOR 0.9% 250 ML INJ 250 ML IV SCH (23:00)
[2016-04-20] VITALS (20 sets, daily range): BP systolic 66–116; BP diastolic 32–56; PULSE 62–96; RESP 12–15; TEMP 97.9–98.5; O2SAT 93–100
[2016-04-20] MEDS: PIPERACIL-TAZO 4.5 GM PREMIX 100 ML IV SCH ×5 (00:13→22:55)
[2016-04-20] MEDS ORDERED: MIDAZOLAM HCL 2 MG/2 ML VIAL IV PUSH ONE (01:45)
[2016-04-20] MEDS ORDERED: NOREPINEPHRINE-DEXTROSE DRIP 250 ML IV ONE (02:03)
[2016-04-20] MEDS ORDERED: SODIUM CHLOR 0.9% 1000 ML INJ 1,000 ML IV ONE (02:30)
--- NOTE | 2016-04-20 03:01 | RADRPT ---
EXAM DATE/TIME: 04/20/2016 02:33 [place] COMPARISON: No previous studies available for comparison. INDICATIONS : Central line placement MEDICAL HISTORY : Hypertension. Diabetes mellitus type 2. Dementia. Deep vein thrombosis SURGICAL HISTORY : None. ENCOUNTER: Subsequent ACUITY: 2 days PAIN SCORE: Non-responsive. LOCATION: Bilateral chest FINDINGS: Right lung volume loss and mid lung consolidation again noted, not significantly changed. No large ef fusion seen. No pneumothorax. There is a new right subclavian central venous catheter with tip at the atriocaval junction. Endotracheal tube tip is about 4 cm above the nesha. There is a nasogastric tube coursing into the s tomach. CONCLUSION: 1. New right subclavian central venous catheter with tip at the atriocaval junction. No pneumothorax or other acute cardiopulmonary disease. 2. Right midlung consolidation with volume loss not significantly changed. 3. Unchanged endotracheal tube and nasogastric tube. Rodrigo Mccallum MD on April 20, 2016 at 2:58 Board Certified Radiologist. This report was verified electronically.
[2016-04-20] MEDS: fentaNYL DRIP 250 ML IV SCH ×2 (03:24→22:55)
[2016-04-20] MEDS: RESP: ALBUTEROL 2.5 MG/IPRATROPIUM 0.5 MG NEB (SCH) NEB ×4 (03:45→20:44)
[2016-04-20] MEDS: CHLORHEXIDINE GLUCONATE 2 % 1 PACK (2 CLOTHS) TOP SCH (04:00)
[2016-04-20 04:42] LABS: AUTOMATED NEUTROPHIL # 16.9 TH/MM3 (1.8-7.7); BASOPHIL % 0.1 % (0.0-2.0); EOSINOPHIL % 0.1 % (0.0-4.0); HEMATOCRIT 27.1 % (35.0-46.0); HEMO FLAGS DIFF FINAL; LYMPH % 4.2 % (9.0-44.0); LYMPHOCYTE # 0.8 TH/MM3 (1.0-4.8); MEAN CELL VOLUME 88.3 FL (80.0-100.0); MEAN CORPUSCULAR HEMOGLOBIN 27.2 PG (27.0-34.0); MEAN CORPUSCULAR HGB CONC 30.7 % (32.0-36.0); MONO % 5.3 % (0.0-8.0); NEUT % 90.3 % (16.0-70.0); PLATELET COUNT 195 TH/MM3 (150-450); RED BLOOD COUNT 3.07 MIL/MM3 (4.00-5.30); RED CELL DISTRIBUTION WIDTH 18.5 % (11.6-17.2); WHITE BLOOD COUNT 18.7 TH/MM3 (4.0-11.0)
[2016-04-20] MEDS: VANCOMYCIN INJ 1,250 MG in SODIUM CHLOR 0.9% 250 ML INJ 250 ML IV SCH ×2 (04:43→22:55)
[2016-04-20 04:58] LABS: ALKALINE PHOSPHATASE 98 U/L (45-117); ALT (GPT) 11 U/L (10-53); ANION GAP 6 MEQ/L (5-15); AST (GOT) 12 U/L (15-37); BICARBONATE 30.6 MEQ/L (21.0-32.0); BLOOD UREA NITROGEN 14 MG/DL (7-18); CHLORIDE 108 MEQ/L (98-107); GLOMERULAR FILTRATION RATE 122 ML/MIN (>89); SODIUM (NA) 145 MEQ/L (136-145); TOTAL BILIRUBIN ADULT 0.2 MG/DL (0.2-1.0)
[2016-04-20] MEDS ORDERED: TERBUTALINE INJ 1 MG/ML AMP SQ PRN (05:15)
--- NOTE | 2016-04-20 08:43 | PD.PROCEDR ---
Procedure Note Procedure DATE: 04/20/16 this procedure was performed around 2 AM. This note is entered later. CENTRAL LINE PLACEMENT: Right subclavian vein. INDICATION: Central venous access CONSENT Patient is not capacitated for medical decision-making. Attempted to reach family for informed consent. There was no answer. Procedure was done emergently as patient is in shock and in need of central access. DESCRIPTION OF THE PROCEDURE The patient was placed in supine position, Trendelenburg. The skin was cleansed with Chloraprep 3. Additional barrier precautions included large sterile drape, sterile gloves, sterile gown, face mask, and hat. 1 % lidocaine was used for local anesthesia. On single attempt, the vein was accessed with an introducer needle. The guide wire was advanced and the tract was dilated. Using Seldinger technique a 7 [place] 20 cm antimicrobial coated triple-lumen catheter was advanced to a depth of 17 centimeters. The guide wire was removed. All ports had good return of dark venous blood and flushed easily with saline. The central line was secured with 2.0 silk. A sterile dressing with antibiotic disc was applied. ESTIMATED BLOOD LOSS: Minimal COMPLICATIONS: No apparent complications. STAT chest x-ray demonstrated satisfactory central venous line position. No apparent complication. Kortney Luna MD Apr 20, 2016 08:42
[2016-04-20] MEDS: NOREPINEPHRINE-DEXTROSE DRIP 250 ML IV SCH ×2 (11:18→22:55)
[2016-04-20] MEDS: RANITIDINE HCL SYRUP 150 MG/10 ML UDC TUBE SCH ×2 (11:18→11:23)
[2016-04-20] MEDS: CHLORHEXIDINE 0.12% (ORAL KIT) 15 ML CUP MT SCH ×2 (11:19→22:57)
[2016-04-20] MEDS: SODIUM CHLOR 0.9% 1000 ML INJ 1,000 ML IV SCH ×2 (11:19→22:56)
[2016-04-20] MEDS: SODIUM CHLORIDE 0.9% FLUSH 5 ML FLUSH IVF SCH ×2 (11:19→23:05)
[2016-04-20] MEDS ORDERED: MIDAZOLAM HCL 5 MG/ML VIAL (1 ML) ONE (14:07)
[2016-04-20] MEDS ORDERED: GLUCAGON 1 MG/ML VIAL IM/SQ PRN (16:15)
--- NOTE | 2016-04-20 16:19 | HHI.PR ---
Subjective Remarks intubated,sedated Objective Vital Signs Date Time Temp Pulse Resp B/P Pulse Ox O2 Delivery O2 Flow Rate FiO2 04/20/16 16:03 97 40 04/20/16 12:00 60 04/20/16 12:00 67 04/20/16 12:00 98.0 67 12 95/53 100 04/20/16 11:58 100 40 04/20/16 10:00 74 04/20/16 08:00 97.9 84 12 116/51 99 04/20/16 08:00 60 04/20/16 08:00 84 04/20/16 07:42 100 60 04/20/16 06:00 62 04/20/16 05:30 94 70 04/20/16 05:00 72 04/20/16 04:15 100 Mechanical Ventilator 70 04/20/16 04:00 98.2 73 12 111/56 99 04/20/16 04:00 70 04/20/16 04:00 73 04/20/16 02:00 66/32 04/20/16 02:00 83 04/20/16 00:43 93 90 04/20/16 00:00 90 04/20/16 00:00 98.1 96 15 71/36 99 04/20/16 00:00 96 04/19/16 22:00 87 04/19/16 20:08 95 40 04/19/16 20:00 80 04/19/16 20:00 93 04/19/16 20:00 97.5 93 14 124/58 98 04/19/16 20:00 80 04/19/16 19:34 100 80 04/19/16 18:31 99 60 04/19/16 18:05 68 12 115/66 100 Ventilator 60 I/O 04/19/16 04/19/16 04/19/16 04/20/16 04/20/16 04/20/16 06:59 14:59 22:59 06:59 14:59 22:59 Intake Total 948 ml 1689 ml Output Total 650 ml 160 ml Balance 298 ml 1529 ml Intake IV Total 903 ml 1572 ml Tube Feeding 15 ml 117 ml Other 30 ml Output Urine Total 650 ml 160 ml # Voids 1 # Bowel Movements 0 0 Result Diagram: 04/20/160 04/20/16 0400 Objective Remarks intubated vented sedated opens eyes to stimuli jaonn does not follow nor w/d at this time Assessment and Plan Assessment and Plan encephalopathy likely infectious -check eeg in am cont to try to wean cont abx for infection Kaye Dixon MD Apr 20, 2016 16:19
--- NOTE | 2016-04-20 16:32 | HHI.CCPN ---
Subjective Remarks/Hospital Course 04/19: Patient is a 70-year-old female with past medical history of HTN, HLD, DM , dementia, COPD, CAD who presents the emergency department for altered mental status as a stroke alert. Reportedly [facility], patient was awake and alert and conversing this morning. At approximately 11 AM her mental status decompensated, she became essentially completely unresponsive and EMS was called. Blood glucose was normal. Reportedly last seen normal at 11 AM. No focal deficit of the extremities, but patient was entirely nonverbal and given her acute change in mental status a stroke alert was called prehospital. Patient was altered and not able to participate with history or physical examination. She is anticoagulated on Plavix. Patient was evaluated by ER physician and in view of inability to protect airway and unresponsiveness was intubated and placed on mechanical ventilation. She received a 10 mg and succinylcholine 150 mg for intubation however following that has not required any sedation. Chest x-ray showed right upper lobe infiltrate, head CT was negative for bleed. Case was discussed by ER physician and neurology Dr. Dixon, patient was not deemed to be a candidate for TPA and there was a question whether this was a stroke or sepsis with pneumonia/UTI causing altered mental status. Patient was accepted for admission by critical care medicine service. When I evaluated the patient she was orally intubated on mechanical ventilation essentially unresponsive. History was obtained by discussion with ER physician and reviewing records. 04/20: Developed hypotension last night. Received 1.5 L fluid bolus followed by initiation of Levophed for pressor support after placement of right subclavian central line. Remains sedated, orally intubated on mechanical ventilation, arousable. Appears to not her head on commands. On Levophed 7 mics per minute. Objective Vital Signs Date Time Temp Pulse Resp B/P Pulse Ox O2 Delivery O2 Flow Rate FiO2 04/20/16 16:03 97 40 04/20/16 12:00 67 04/20/16 12:00 98.0 12 95/53 04/20/16 04:15 Mechanical Ventilator 04/19/16 11:50 15.00 Intake and Output 04/19/16 04/19/16 04/19/16 07:59 15:59 23:59 Intake Total 948 ml Output Total 650 ml Balance 298 ml Result Diagram: 04/20/16 0400 04/20/16 0400 Other Results Laboratory Tests Test 04/19/16 04/19/16 04/20/16 04/20/16 18:30 19:33 01:21 03:28 Nasal Screen MRSA (PCR) NEGATIVE Sodium Level 144 MEQ/L Potassium Level 3.4 MEQ/L Chloride Level 105 MEQ/L Carbon Dioxide Level 31.6 MEQ/L Anion Gap 7 MEQ/L Blood Urea Nitrogen 16 MG/DL Creatinine 0.62 MG/DL Estimat Glomerular Filtration 95 ML/MIN Rate Random Glucose 194 MG/DL Calcium Level 8.4 MG/DL Total Bilirubin 0.3 MG/DL Aspartate Amino Transf 18 U/L (AST/SGOT) Alanine Aminotransferase 16 U/L (ALT/SGPT) Alkaline Phosphatase 125 U/L Total Creatine Kinase 28 U/L 24 U/L Troponin I 0.09 NG/ML 0.15 NG/ML Total Protein 6.5 GM/DL Albumin 1.9 GM/DL Lactic Acid Level 0.8 mmol/L Test 04/20/16 04:00 White Blood Count 18.7 TH/MM3 Red Blood Count 3.07 MIL/MM3 Hemoglobin 8.3 GM/DL Hematocrit 27.1 % Mean Corpuscular Volume 88.3 FL Mean Corpuscular Hemoglobin 27.2 PG Mean Corpuscular Hemoglobin 30.7 % Concent Red Cell Distribution Width 18.5 % Platelet Count 195 TH/MM3 Mean Platelet Volume 10.4 FL Neutrophils (%) (Auto) 90.3 % Lymphocytes (%) (Auto) 4.2 % Monocytes (%) (Auto) 5.3 % Eosinophils (%) (Auto) 0.1 % Basophils (%) (Auto) 0.1 % Neutrophils # (Auto) 16.9 TH/MM3 Lymphocytes # (Auto) 0.8 TH/MM3 Monocytes # (Auto) 1.0 TH/MM3 Eosinophils # (Auto) 0.0 TH/MM3 Basophils # (Auto) 0.0 TH/MM3 CBC Comment DIFF FINAL Differential Comment Sodium Level 145 MEQ/L Potassium Level 3.0 MEQ/L Chloride Level 108 MEQ/L Carbon Dioxide Level 30.6 MEQ/L Anion Gap 6 MEQ/L Blood Urea Nitrogen 14 MG/DL Creatinine 0.50 MG/DL Estimat Glomerular Filtration 122 ML/MIN Rate Random Glucose 215 MG/DL Calcium Level 7.6 MG/DL Total Bilirubin 0.2 MG/DL Aspartate Amino Transf 12 U/L (AST/SGOT) Alanine Aminotransferase 11 U/L (ALT/SGPT) Alkaline Phosphatase 98 U/L Total Protein 5.4 GM/DL Albumin 1.6 GM/DL Microbiology Date/Time Procedure Status Source Growth 04/19/16 12:40 Legionella Antigen - Final Complete Urine Catheterized Urine PRESUMPTIVE NEGATIVE FOR LEGIONELLA P... 04/19/16 12:40 Streptococcus pneumoniae Antigen (M - Final Complete Urine Catheterized Urine PRESUMPTIVE NEGATIVE FOR STREPTOCOCCU... 04/19/16 13:40 Influenza Types A,B Antigen (SONAL) - Final Complete Nasal Washing NEGATIVE FOR FLU A AND B ANTIGEN.... Imaging Last 48 hours Impressions Chest X-Ray 04/20/16 0000 Signed Impressions: Service Date/Time: Wednesday, April 20, 2016 02:33 - CONCLUSION: 1. New right subclavian central venous catheter with tip at the atriocaval junction. No pneumothorax or other acute cardiopulmonary disease. 2. Right midlung consolidation with volume loss not significantly changed. 3. Unchanged endotracheal tube and nasogastric tube. Rodrigo Mccallum MD Chest X-Ray 04/19/16 1211 Signed Impressions: Service Date/Time: Tuesday, April 19, 2016 12:44 - CONCLUSION: ET tube in good position. Scott Archuleta MD FACR Chest X-Ray 04/19/16 1132 Signed Impressions: Service Date/Time: Tuesday, April 19, 2016 11:46 - CONCLUSION: New consolidative changes right upper lobe suspicious for inflammatory process. Scott Archuleta MD FACR Head CT 04/19/16 0000 Signed Impressions: Service Date/Time: Tuesday, April 19, 2016 11:37 - CONCLUSION: Cortical atrophy and microvascular ischemic demyelinative change. No acute intracranial abnormality is seen. Reinier Archuleta MD Objective Remarks HEENT/ Neuro: Encephalopathic/ sedated, arousable, attempts to move both upper extremities. Orally intubated, Pallor present, no icterus, tongue/ mucosa moist. Pupils 3 mm bilaterally reacting actively to light. Neck: No JVD Chest/Pulm: on mech vent, good air entry bilaterally, no wheezing or crackles. Scattered rhonchi CVS: S1-S2 regular, no murmur GI/abdomen: soft, nontender, bowel sounds sluggish Extremities: warm bilaterally. left LE AKA, no edema. Urinary Catheter: Yes Assessment to: Continue Vascular Central Line Catheter: Yes Assessment to: Continue Date of Insertion: Apr 19, 2016 Line: Central Venous Catheter Location: Subclavian A/P Assessment and Plan 70 year-old female with: Encephalopathy severe Sepsis Pneumonia UTI Dementia COPD Coronary artery disease Diabetes mellitus Hypertension Hyperlipidemia History of CHF Dementia Plan: Neuro: Propofol/ fentanyl as needed while intubated for vent synchrony. Head CT negative for bleed. Altered mental status possibly secondary to delirium. May require MRI brain. Will defer to neurology. Noted consulted by neurology Dr. Dixon. Cardiovascular: IV hydration, watch for hypotension. Continue Plavix. Hold coreg in view of hypotension. On Levophed for pressor support. Flow Trac for hemodynamic monitoring Pulmonary: Intubated for airway protection. Continue mechanical ventilation, vent bundle, bronchodilators as needed. Pulmonary toilet. Sputum sent for Gram stain and cultures. GI/liver: Continue tube feeds and advance to goal as tolerated /renal: IV hydration, strict intake output, monitor and replete electrolytes, follow BUN/creatinine. ID: Follow-up cultures. Urine culture with GNR. Empiric antibiotic coverage with IV vancomycin/Zosyn. Endocrine: SSI for glycemic control as needed Heme: Follow CBC Prophylaxis: Zantac/SCDs/Lovenox. Lines: Right subclavian central line (04/19), left axillary arterial line (04/20 ) Condition critical Time spent on critical care excluding procedures 40 minutes Bhavesh Monroe MD Apr 20, 2016 16:32
--- NOTE | 2016-04-20 16:33 | PD.PROCEDR ---
Procedure Note Procedure Procedure: Left axillary arterial catheter placement with ultrasound guidance Preop diagnosis: Septic shock, UTI, acute respiratory failure on mechanical ventilation Postop diagnosis: Same Anesthesia: 1% lidocaine for local infiltration anesthesia Procedure: After sterile prepping and draping using 1% lidocaine for local infiltration anesthesia, left axillary artery was visualized using ultrasound vessel finder and was cannulated using an introducer needle with bright pulsatile blood return. A guidewire was passed through the introducer needle without any resistance and the needle was then removed. A 12 cm 20-gauge arterial catheter was passed over the guidewire by modified Seldinger's technique up to the 12 cm melba and after removal of guidewire catheter was connected to transducer tubing with good waveform being obtained on the monitor. Biopatch was applied to the insertion site and catheter was sutured in place. Sterile Bi0-occlusive dressing was applied to the site. Patient tolerated the procedure well with no immediate complications noted. Bhavesh Monroe MD Apr 20, 2016 16:33
[2016-04-20] MEDS: ENOXAPARIN SODIUM 40 MG/0.4 ML SYRINGE SQ SCH (17:41)
[2016-04-20] MEDS: INSULIN ASPART SUPPLEMENTAL SCALE SQ SCH (17:41)
--- NOTE | 2016-04-20 22:13 | EKG ---
Date Performed: 04/19/2016 Time Performed: 12:09:42 PTAGE: 70 years EKG: Sinus rhythm WITH OCCASIONAL VENTRICULAR PREMATURE COMPLEXES WITH OCCASIONAL SUPRAVENTRICULAR PREMATURE COMPLEXES BORDERLINE LEFT AXIS DEVIATION BORDERLINE ECG PREVIOUS TRACING : 02/01/2016 15.11 Compared to the previous tracing, ST-T changes less promin ent DOCTOR: Stuart Robles Interpretating Date/Time 04/20/2016 22:12:33
[2016-04-21] VITALS (21 sets, daily range): BP systolic 95–138; BP diastolic 43–79; PULSE 72–104; RESP 12–23; TEMP 97.6–99.1; O2SAT 93–100
[2016-04-21] MEDS: INSULIN ASPART SUPPLEMENTAL SCALE SQ SCH ×4 (00:37→17:50)
[2016-04-21] MEDS: RESP: ALBUTEROL 2.5 MG/IPRATROPIUM 0.5 MG NEB (SCH) NEB ×4 (03:24→21:43)
[2016-04-21] MEDS: CHLORHEXIDINE GLUCONATE 2 % 1 PACK (2 CLOTHS) TOP SCH (04:00)
[2016-04-21] MEDS: PIPERACIL-TAZO 4.5 GM PREMIX 100 ML IV SCH ×4 (05:45→17:50)
[2016-04-21] MEDS: SODIUM CHLOR 0.9% 1000 ML INJ 1,000 ML IV SCH ×2 (05:46→14:55)
[2016-04-21 05:53] LABS: AUTOMATED NEUTROPHIL # 15.8 TH/MM3 (1.8-7.7); BASOPHIL % 0.2 % (0.0-2.0); EOSINOPHIL # 0.1 TH/MM3 (0-0.4); EOSINOPHIL % 0.4 % (0.0-4.0); HEMATOCRIT 25.7 % (35.0-46.0); LYMPH % 7.2 % (9.0-44.0); LYMPHOCYTE # 1.3 TH/MM3 (1.0-4.8); MEAN CELL VOLUME 86.5 FL (80.0-100.0); MEAN CORPUSCULAR HGB CONC 31.2 % (32.0-36.0); NEUT % 87.2 % (16.0-70.0); PLATELET COUNT 186 TH/MM3 (150-450); RED BLOOD COUNT 2.97 MIL/MM3 (4.00-5.30); RED CELL DISTRIBUTION WIDTH 19.1 % (11.6-17.2); WHITE BLOOD COUNT 18.1 TH/MM3 (4.0-11.0)
[2016-04-21 06:25] LABS: HEMO FLAGS AUTO DIFF
[2016-04-21 06:29] LABS: ALKALINE PHOSPHATASE 90 U/L (45-117); ALT (GPT) 13 U/L (10-53); ANION GAP 8 MEQ/L (5-15); AST (GOT) 13 U/L (15-37); BICARBONATE 26.6 MEQ/L (21.0-32.0); BLOOD UREA NITROGEN 11 MG/DL (7-18); CHLORIDE 109 MEQ/L (98-107); GLOMERULAR FILTRATION RATE 107 ML/MIN (>89); SODIUM (NA) 144 MEQ/L (136-145); TOTAL BILIRUBIN ADULT 0.2 MG/DL (0.2-1.0)
[2016-04-21 06:34] LABS: POTASSIUM 2.6 MEQ/L (3.5-5.1)
[2016-04-21] MEDS ORDERED: POTASSIUM CHLOR 20 MEQ PREMIX 100 ML ONE (08:20)
[2016-04-21 09:30] LABS: BANDS 12 % (0-6); METAMYELOCYTES 1 % (0-1); NEUTROPHIL # MANUAL DIFF 14.7 TH/MM3 (1.8-7.7); POLYS (SEG NEUTROPHILS) 68 % (16-70); WBC DIFF SAMPLE 100
[2016-04-21 09:31] LABS: PLATELET ESTIMATE SMEAR NORMAL (NORMAL); PLATELET MORPHOLOGY NORMAL (NORMAL); SCAN/DIFF FINAL DIFF MANUAL
[2016-04-21] MEDS: POTASSIUM CHLOR 20 MEQ PREMIX 100 ML IV SCH ×2 (10:00→10:47)
[2016-04-21] MEDS: RANITIDINE HCL SYRUP 150 MG/10 ML UDC TUBE SCH (10:44)
[2016-04-21] MEDS: POTASSIUM CL 40 MEQ/30 ML LIQ UDC OG SCH ×2 (10:46→13:02)
[2016-04-21] MEDS: NOREPINEPHRINE-DEXTROSE DRIP 250 ML IV SCH ×3 (10:46→20:24)
[2016-04-21] MEDS: INSULIN DETEMIR 100 UNITS/ML VIAL SQ SCH ×2 (10:46→20:13)
[2016-04-21] MEDS: SODIUM CHLORIDE 0.9% FLUSH 5 ML FLUSH IVF SCH ×2 (10:46→20:14)
[2016-04-21] MEDS: CHLORHEXIDINE 0.12% (ORAL KIT) 15 ML CUP MT SCH ×2 (10:47→20:15)
[2016-04-21] MEDS: PROPOFOL 1000 MG/100 ML INJ 100 ML IV SCH (13:02)
[2016-04-21] MEDS: VANCOMYCIN INJ 1,250 MG in SODIUM CHLOR 0.9% 250 ML INJ 250 ML IV SCH (14:55)
[2016-04-21] MEDS: ENOXAPARIN SODIUM 40 MG/0.4 ML SYRINGE SQ SCH (14:55)
[2016-04-21] MEDS: fentaNYL DRIP 250 ML IV SCH (14:59)
--- NOTE | 2016-04-21 17:03 | HHI.CCPN ---
Subjective Remarks/Hospital Course 04/19: Patient is a 70-year-old female with past medical history of HTN, HLD, DM , dementia, COPD, CAD who presents the emergency department for altered mental status as a stroke alert. Reportedly per patient's care facility, [facility], patient was awake and alert and conversing this morning. At approximately 11 AM her mental status decompensated, she became essentially completely unresponsive and EMS was called. Blood glucose was normal. Reportedly last seen normal at 11 AM. No focal deficit of the extremities, but patient was entirely nonverbal and given her acute change in mental status a stroke alert was called prehospital. Patient was altered and not able to participate with history or physical examination. She is anticoagulated on Plavix. Patient was evaluated by ER physician and in view of inability to protect airway and unresponsiveness was intubated and placed on mechanical ventilation. She received a 10 mg and succinylcholine 150 mg for intubation however following that has not required any sedation. Chest x-ray showed right upper lobe infiltrate, head CT was negative for bleed. Case was discussed by ER physician and neurology Dr. Dixon, patient was not deemed to be a candidate for TPA and there was a question whether this was a stroke or sepsis with pneumonia/UTI causing altered mental status. Patient was accepted for admission by critical care medicine service. When I evaluated the patient she was orally intubated on mechanical ventilation essentially unresponsive. History was obtained by discussion with ER physician and reviewing records. 04/20: Developed hypotension last night. Received 1.5 L fluid bolus followed by initiation of Levophed for pressor support after placement of right subclavian central line. Remains sedated, orally intubated on mechanical ventilation, arousable. Appears to not her head on commands. On Levophed 7 mics per minute. 04/21: Remains sedated, orally intubated on mechanical ventilation. Remains on Levophed for pressor support. Tolerating tube feeds Objective Vital Signs Date Time Temp Pulse Resp B/P Pulse Ox O2 Delivery O2 Flow Rate FiO2 04/21/16 16:00 84 113/53 109/49 04/21/16 16:00 99.1 14 96 04/21/16 16:00 40 04/21/16 07:00 Mechanical Ventilator 04/19/16 11:50 15.00 Intake and Output 04/20/16 04/20/16 04/21/16 08:00 16:00 00:00 Intake Total 1689 ml 1363 ml 1416 ml Output Total 160 ml 150 ml 300 ml Balance 1529 ml 1213 ml 1116 ml Result Diagram: 04/21/16 0519 04/21/16 0519 Other Results Microbiology Date/Time Procedure Status Source Growth 04/19/16 12:40 Legionella Antigen - Final Complete Urine Catheterized Urine PRESUMPTIVE NEGATIVE FOR LEGIONELLA P... 04/19/16 12:40 Streptococcus pneumoniae Antigen (M - Final Complete Urine Catheterized Urine PRESUMPTIVE NEGATIVE FOR STREPTOCOCCU... 04/19/16 12:40 Urine Culture - Final Complete Urine Catheterized Urine Escherichia Coli 04/19/16 13:40 Influenza Types A,B Antigen (SONAL) - Final Complete Nasal Washing NEGATIVE FOR FLU A AND B ANTIGEN.... Imaging Last 48 hours Impressions Chest X-Ray 04/20/16 0000 Signed Impressions: Service Date/Time: Wednesday, April 20, 2016 02:33 - CONCLUSION: 1. New right subclavian central venous catheter with tip at the atriocaval junction. No pneumothorax or other acute cardiopulmonary disease. 2. Right midlung consolidation with volume loss not significantly changed. 3. Unchanged endotracheal tube and nasogastric tube. Rodrigo Mccallum MD Chest X-Ray 04/19/16 1211 Signed Impressions: Service Date/Time: Tuesday, April 19, 2016 12:44 - CONCLUSION: ET tube in good position. Scott Archuleta MD FACR Chest X-Ray 04/19/16 1132 Signed Impressions: Service Date/Time: Tuesday, April 19, 2016 11:46 - CONCLUSION: New consolidative changes right upper lobe suspicious for inflammatory process. Scott Archuleta MD FACR Head CT 04/19/16 0000 Signed Impressions: Service Date/Time: Tuesday, April 19, 2016 11:37 - CONCLUSION: Cortical atrophy and microvascular ischemic demyelinative change. No acute intracranial abnormality is seen. Reinier Archuleta MD Objective Remarks HEENT/ Neuro: Encephalopathic/ sedated, arousable, attempts to move both upper extremities. Orally intubated, Pallor present, no icterus, tongue/ mucosa moist. Pupils 3 mm bilaterally reacting actively to light. Neck: No JVD Chest/Pulm: on mech vent, good air entry bilaterally, no wheezing or crackles. Scattered rhonchi CVS: S1-S2 regular, no murmur GI/abdomen: soft, nontender, bowel sounds sluggish Extremities: warm bilaterally. left LE AKA, no edema. Date of Insertion: Apr 19, 2016 Line: Central Venous Catheter Location: Subclavian A/P Assessment and Plan 70 year-old female with: Encephalopathy Septic shock Pneumonia UTI Dementia COPD Coronary artery disease Diabetes mellitus Hypertension Hyperlipidemia History of CHF Dementia Plan: Neuro: Propofol/ fentanyl as needed while intubated for vent synchrony. Head CT negative for bleed. Altered mental status possibly secondary to delirium. May require MRI brain. Will defer to neurology. Noted consult by neurology Dr. Dixon. Cardiovascular: IV hydration, watch for hypotension. Continue Plavix. Hold coreg in view of hypotension. On Levophed for pressor support. Flow Trac for hemodynamic monitoring Pulmonary: Intubated for airway protection. Continue mechanical ventilation, vent bundle, bronchodilators as needed. Pulmonary toilet. Sputum sent for Gram stain and cultures. Start daily C Pap trials to decide extubation GI/liver: Continue tube feeds and advance to goal as tolerated /renal: IV hydration, strict intake output, monitor and replete electrolytes, follow BUN/creatinine. ID: Follow-up cultures. Urine culture with GNR. Empiric antibiotic coverage with IV vancomycin/Zosyn. Endocrine: SSI for glycemic control as needed Heme: Follow CBC Prophylaxis: Zantac/SCDs/Lovenox. Lines: Right subclavian central line (04/19), left axillary arterial line (04/20 ) Condition critical Time spent on critical care excluding procedures 40 minutes Bhavesh Monroe MD Apr 21, 2016 17:03
[2016-04-21] MEDS ORDERED: POTASSIUM CHLOR 20 MEQ PREMIX 100 ML IV PRN (17:15)
[2016-04-21] MEDS ORDERED: POTASSIUM PHOSPHATE MONOBASIC 500 MG TAB PO PRN (17:15)
[2016-04-21] MEDS ORDERED: POTASSIUM PHOSPHATE MONOBASIC 500 MG TAB PO/TUBE PRN (17:15)
[2016-04-21] MEDS ORDERED: POTASSIUM CHLOR 40 MEQ PREMIX 100 ML IV PRN (17:15)
[2016-04-21] MEDS ORDERED: MAGNESIUM SULFATE INJ 2 GM in SODIUM CHLORIDE 0.9% INJ 96 ML IV PRN (17:15)
[2016-04-21] MEDS ORDERED: POTASSIUM CL 40 MEQ/30 ML LIQ UDC PO/TUBE PRN ×2 (17:15)
[2016-04-21] MEDS ORDERED: SODIUM PHOSPHATE INJ 30 MMOL in SODIUM CHLOR 0.9% 250 ML INJ 240 ML IV PRN (17:15)
[2016-04-21] MEDS ORDERED: POTASSIUM PHOSPHATE INJ 30 MMOL in SODIUM CHLOR 0.9% 250 ML INJ 250 ML IV PRN (17:15)
[2016-04-21] MEDS ORDERED: MAGNESIUM SULFATE INJ 4 GM in SODIUM CHLORIDE 0.9% INJ 92 ML IV PRN (17:15)
[2016-04-21] MEDS ORDERED: MAGNESIUM OXIDE 400 MG TAB PO PRN (17:15)
[2016-04-21 19:15] LABS: BICARBONATE 25.7 MEQ/L (21.0-32.0); POTASSIUM 4.2 MEQ/L (3.5-5.1)
[2016-04-22] VITALS (21 sets, daily range): BP systolic 85–142; BP diastolic 40–65; PULSE 70–151; RESP 14–20; TEMP 97.5–98.4; O2SAT 94–100
[2016-04-22] MEDS: INSULIN ASPART SUPPLEMENTAL SCALE SQ SCH ×5 (01:02→23:29)
[2016-04-22] MEDS: PIPERACIL-TAZO 4.5 GM PREMIX 100 ML IV SCH ×5 (01:03→23:29)
[2016-04-22] MEDS: CHLORHEXIDINE GLUCONATE 2 % 1 PACK (2 CLOTHS) TOP SCH (03:48)
[2016-04-22] MEDS: SODIUM CHLOR 0.9% 1000 ML INJ 1,000 ML IV SCH ×2 (03:48→14:13)
[2016-04-22] MEDS: RESP: ALBUTEROL 2.5 MG/IPRATROPIUM 0.5 MG NEB (SCH) NEB ×4 (03:51→21:19)
[2016-04-22 03:58] LABS: AUTOMATED NEUTROPHIL # 11.4 TH/MM3 (1.8-7.7); BASOPHIL % 0.2 % (0.0-2.0); EOSINOPHIL # 0.1 TH/MM3 (0-0.4); EOSINOPHIL % 0.8 % (0.0-4.0); HEMATOCRIT 24.9 % (35.0-46.0); LYMPH % 7.8 % (9.0-44.0); MEAN CELL VOLUME 86.8 FL (80.0-100.0); MEAN CORPUSCULAR HEMOGLOBIN 26.6 PG (27.0-34.0); MEAN CORPUSCULAR HGB CONC 30.7 % (32.0-36.0); MONO % 4.2 % (0.0-8.0); PLATELET COUNT 150 TH/MM3 (150-450); RED BLOOD COUNT 2.87 MIL/MM3 (4.00-5.30); RED CELL DISTRIBUTION WIDTH 19.3 % (11.6-17.2); WHITE BLOOD COUNT 13.1 TH/MM3 (4.0-11.0)
[2016-04-22 04:01] LABS: HEMO FLAGS AUTO DIFF
[2016-04-22 04:19] LABS: ALT (GPT) 12 U/L (10-53); ANION GAP 7 MEQ/L (5-15); AST (GOT) 8 U/L (15-37); BLOOD UREA NITROGEN 9 MG/DL (7-18); CHLORIDE 108 MEQ/L (98-107); GLOMERULAR FILTRATION RATE 103 ML/MIN (>89); MAGNESIUM 1.2 MG/DL (1.5-2.5); POTASSIUM 3.6 MEQ/L (3.5-5.1); SODIUM (NA) 143 MEQ/L (136-145)
[2016-04-22 04:22] LABS: ALKALINE PHOSPHATASE 91 U/L (45-117); TOTAL BILIRUBIN ADULT 0.2 MG/DL (0.2-1.0)
[2016-04-22 04:56] LABS: OVALOCYTES 1+ (NORMAL); SCAN/DIFF AUTO DIFF CONFIRMED
[2016-04-22] MEDS: NOREPINEPHRINE-DEXTROSE DRIP 250 ML IV SCH (05:59)
--- NOTE | 2016-04-22 06:12 | RADRPT ---
EXAM DATE/TIME: 04/22/2016 04:16 [place] COMPARISON: CHEST SINGLE AP, April 20, 2016, 2:33. INDICATIONS : Evaluate for respiratory failure. MEDICAL HISTORY : Hypertension. Diabetes mellitus type 2. Dementia. Deep vein thrombosis. SURGICAL HISTORY : None. ENCOUNTER: Subsequent ACUITY: 4 - 6 days PAIN SCORE: Non-responsive. LOCATION: chest FINDINGS: Endotracheal tube is present stable position with tip several centimeters above the nesha. Nasogastr ic tube descends into the stomach. Right subclavian central line is stable in good position. There is persistent right lung predominantly perihilar infiltrate cardiomediastinal contours are grossly stab le. CONCLUSION: Stable chest Rodrigo Upton MD on April 22, 2016 at 6:09 Board Certified Radiologist. This report was verified electronically.
[2016-04-22] MEDS: CHLORHEXIDINE 0.12% (ORAL KIT) 15 ML CUP MT SCH ×2 (08:14→20:02)
[2016-04-22] MEDS: INSULIN DETEMIR 100 UNITS/ML VIAL SQ SCH ×2 (08:15→20:01)
[2016-04-22] MEDS: RANITIDINE HCL SYRUP 150 MG/10 ML UDC TUBE SCH (08:15)
[2016-04-22] MEDS: SODIUM CHLORIDE 0.9% FLUSH 5 ML FLUSH IVF SCH ×2 (08:15→20:03)
[2016-04-22] MEDS: VANCOMYCIN INJ 1,250 MG in SODIUM CHLOR 0.9% 250 ML INJ 250 ML IV SCH (08:27)
[2016-04-22] MEDS ORDERED: PHARMACY ORDERED LAB XX ONE (08:45)
--- NOTE | 2016-04-22 09:30 | HHI.CCPN ---
Subjective Remarks/Hospital Course 04/19: Patient is a 70-year-old female with past medical history of HTN, HLD, DM , dementia, COPD, CAD who presents the emergency department for altered mental status as a stroke alert. Reportedly per patient's care facility, [facility], patient was awake and alert and conversing this morning. At approximately 11 AM her mental status decompensated, she became essentially completely unresponsive and EMS was called. Blood glucose was normal. Reportedly last seen normal at 11 AM. No focal deficit of the extremities, but patient was entirely nonverbal and given her acute change in mental status a stroke alert was called prehospital. Patient was altered and not able to participate with history or physical examination. She is anticoagulated on Plavix. Patient was evaluated by ER physician and in view of inability to protect airway and unresponsiveness was intubated and placed on mechanical ventilation. She received a 10 mg and succinylcholine 150 mg for intubation however following that has not required any sedation. Chest x-ray showed right upper lobe infiltrate, head CT was negative for bleed. Case was discussed by ER physician and neurology Dr. Dixon, patient was not deemed to be a candidate for TPA and there was a question whether this was a stroke or sepsis with pneumonia/UTI causing altered mental status. Patient was accepted for admission by critical care medicine service. When I evaluated the patient she was orally intubated on mechanical ventilation essentially unresponsive. History was obtained by discussion with ER physician and reviewing records. 04/20: Developed hypotension last night. Received 1.5 L fluid bolus followed by initiation of Levophed for pressor support after placement of right subclavian central line. Remains sedated, orally intubated on mechanical ventilation, arousable. Appears to not her head on commands. On Levophed 7 mics per minute. 04/21: Remains sedated, orally intubated on mechanical ventilation. Remains on Levophed for pressor support. Tolerating tube feeds. 04/22: Sedated, arousable, orally intubated on mechanical ventilation. Levophed for pressor support, being titrated down. Tolerating tube feeds. Objective Vital Signs Date Time Temp Pulse Resp B/P Pulse Ox O2 Delivery O2 Flow Rate FiO2 04/22/16 09:16 40 04/22/16 09:14 98 04/22/16 06:00 77 12/23/16 04:00 98.4 15 139/65 104/40 04/21/16 20:00 Mechanical Ventilator 04/19/16 11:50 15.00 Intake and Output 04/21/16 04/21/16 04/22/16 08:00 16:00 00:00 Intake Total 1140 ml 1452 ml 1601 ml Output Total 300.0 ml 600 ml 600 ml Balance 840.0 ml 852 ml 1001 ml Result Diagram: 04/22/16 0340 04/22/16 0340 Other Results Microbiology Date/Time Procedure Status Source Growth 04/19/16 12:40 Legionella Antigen - Final Complete Urine Catheterized Urine PRESUMPTIVE NEGATIVE FOR LEGIONELLA P... 04/19/16 12:40 Streptococcus pneumoniae Antigen (M - Final Complete Urine Catheterized Urine PRESUMPTIVE NEGATIVE FOR STREPTOCOCCU... 04/19/16 12:40 Urine Culture - Final Complete Urine Catheterized Urine Escherichia Coli 04/19/16 13:40 Influenza Types A,B Antigen (SONAL) - Final Complete Nasal Washing NEGATIVE FOR FLU A AND B ANTIGEN.... Imaging Last 48 hours Impressions Chest X-Ray 04/20/16 0000 Signed Impressions: Service Date/Time: Wednesday, April 20, 2016 02:33 - CONCLUSION: 1. New right subclavian central venous catheter with tip at the atriocaval junction. No pneumothorax or other acute cardiopulmonary disease. 2. Right midlung consolidation with volume loss not significantly changed. 3. Unchanged endotracheal tube and nasogastric tube. Rodrigo Mccallum MD Chest X-Ray 04/19/16 1211 Signed Impressions: Service Date/Time: Tuesday, April 19, 2016 12:44 - CONCLUSION: ET tube in good position. Scott Archuleta MD FACR Chest X-Ray 04/19/16 1132 Signed Impressions: Service Date/Time: Tuesday, April 19, 2016 11:46 - CONCLUSION: New consolidative changes right upper lobe suspicious for inflammatory process. Scott Archuleta MD FACR Head CT 04/19/16 0000 Signed Impressions: Service Date/Time: Tuesday, April 19, 2016 11:37 - CONCLUSION: Cortical atrophy and microvascular ischemic demyelinative change. No acute intracranial abnormality is seen. Reinier Archuleta MD Objective Remarks HEENT/ Neuro: Sedated, arousable, following commands on holding sedation, attempts to move both upper extremities. Orally intubated, Pallor present, no icterus, tongue/ mucosa moist. Pupils 3 mm bilaterally reacting actively to light. Neck: No JVD Chest/Pulm: on mech vent, good air entry bilaterally, no wheezing or crackles. Scattered rhonchi CVS: S1-S2 regular, no murmur GI/abdomen: soft, nontender, bowel sounds sluggish Extremities: warm bilaterally. left LE AKA, no edema. Urinary Catheter: Yes Assessment to: Continue Vascular Central Line Catheter: Yes Assessment to: Continue Date of Insertion: Apr 19, 2016 Line: Central Venous Catheter Location: Subclavian A/P Assessment and Plan 70 year-old female with: Encephalopathy Septic shock Pneumonia E coli UTI Anemia Dementia COPD Coronary artery disease Diabetes mellitus Hypertension Hyperlipidemia History of CHF Dementia Plan: Neuro: Propofol/ fentanyl as needed while intubated for vent synchrony. Head CT negative for bleed. Altered mental status possibly secondary to delirium. Noted consult by neurology Dr. Dixon. Daily sedation vacation. Cardiovascular: IV hydration, watch for hypotension. Continue Plavix. Hold coreg in view of hypotension. On Levophed for pressor support. Flow Trac for hemodynamic monitoring Pulmonary: Intubated for airway protection. Continue mechanical ventilation, vent bundle, bronchodilators as needed. Pulmonary toilet. Sputum sent for Gram stain and cultures. Daily C Pap trials to decide extubation GI/liver: Continue tube feeds and advanced to goal as tolerated. /renal: IV hydration, strict intake output, monitor and replete electrolytes, follow BUN/creatinine. ID: Follow-up cultures. Urine culture with GNR. Empiric antibiotic coverage with IV vancomycin/Zosyn. We'll stop vancomycin IV on 04/22. Follow up on sputum Gram stain and cultures. Endocrine: SSI for glycemic control as needed Heme: Follow CBC Prophylaxis: Zantac/SCDs/Lovenox. Lines: Right subclavian central line (04/19), left axillary arterial line (04/20 ) Condition critical Time spent on critical care excluding procedures 35 minutes Bhavesh Monroe MD Apr 22, 2016 09:30
[2016-04-22] MEDS: ENOXAPARIN SODIUM 40 MG/0.4 ML SYRINGE SQ SCH (14:13)
[2016-04-23] VITALS (17 sets, daily range): BP systolic 99–131; BP diastolic 48–67; PULSE 92–111; RESP 13–16; TEMP 97.8–98.8; O2SAT 92–98
[2016-04-23] MEDS: RESP: ALBUTEROL 2.5 MG/IPRATROPIUM 0.5 MG NEB (SCH) NEB ×3 (03:20→15:42)
[2016-04-23] MEDS: CHLORHEXIDINE GLUCONATE 2 % 1 PACK (2 CLOTHS) TOP SCH (04:00)
[2016-04-23] MEDS: PIPERACIL-TAZO 4.5 GM PREMIX 100 ML IV SCH ×3 (06:22→17:15)
[2016-04-23] MEDS: fentaNYL DRIP 250 ML IV SCH (06:22)
[2016-04-23] MEDS: INSULIN ASPART SUPPLEMENTAL SCALE SQ SCH ×3 (06:23→17:15)
[2016-04-23] MEDS: CHLORHEXIDINE 0.12% (ORAL KIT) 15 ML CUP MT SCH ×2 (08:00→20:00)
[2016-04-23] MEDS: INSULIN DETEMIR 100 UNITS/ML VIAL SQ SCH ×2 (08:15→21:00)
[2016-04-23] MEDS: RANITIDINE HCL SYRUP 150 MG/10 ML UDC TUBE SCH (08:15)
[2016-04-23] MEDS: SODIUM CHLORIDE 0.9% FLUSH 5 ML FLUSH IVF SCH (08:15)
[2016-04-23] MEDS ORDERED: VANCOMYCIN INJ 1,250 MG in SODIUM CHLOR 0.9% 250 ML INJ 250 ML IV SCH (09:00)
--- NOTE | 2016-04-23 11:09 | HHI.CCPN ---
Subjective Remarks/Hospital Course 04/19: Patient is a 70-year-old female with past medical history of HTN, HLD, DM , dementia, COPD, CAD who presents the emergency department for altered mental status as a stroke alert. Reportedly per patient's care facility, [facility] and [facility], patient was awake and alert and conversing this morning. At approximately 11 AM her mental status decompensated, she became essentially completely unresponsive and EMS was called. Blood glucose was normal. Reportedly last seen normal at 11 AM. No focal deficit of the extremities, but patient was entirely nonverbal and given her acute change in mental status a stroke alert was called prehospital. Patient was altered and not able to participate with history or physical examination. She is anticoagulated on Plavix. Patient was evaluated by ER physician and in view of inability to protect airway and unresponsiveness was intubated and placed on mechanical ventilation. She received a 10 mg and succinylcholine 150 mg for intubation however following that has not required any sedation. Chest x-ray showed right upper lobe infiltrate, head CT was negative for bleed. Case was discussed by ER physician and neurology Dr. Dixon, patient was not deemed to be a candidate for TPA and there was a question whether this was a stroke or sepsis with pneumonia/UTI causing altered mental status. Patient was accepted for admission by critical care medicine service. When I evaluated the patient she was orally intubated on mechanical ventilation essentially unresponsive. History was obtained by discussion with ER physician and reviewing records. 04/20: Developed hypotension last night. Received 1.5 L fluid bolus followed by initiation of Levophed for pressor support after placement of right subclavian central line. Remains sedated, orally intubated on mechanical ventilation, arousable. Appears to not her head on commands. On Levophed 7 mics per minute. 04/21: Remains sedated, orally intubated on mechanical ventilation. Remains on Levophed for pressor support. Tolerating tube feeds. 04/22: Sedated, arousable, orally intubated on mechanical ventilation. Levophed for pressor support, being titrated down. Tolerating tube feeds. 04/23: Remains sedated, easily arousable, orally intubated on mechanical ventilation. Off Levophed. Tolerating tube feeds. Failed C Pap trials yesterday. Objective Vital Signs Date Time Temp Pulse Resp B/P Pulse Ox O2 Delivery O2 Flow Rate FiO2 12/24/16 10:00 111 04/23/16 08:40 40 04/23/16 08:23 92 04/23/16 08:00 98.7 14 99/48 04/23/16 07:00 Mechanical Ventilator 04/19/16 11:50 15.00 Intake and Output 04/22/16 04/22/16 04/23/16 08:00 16:00 00:00 Intake Total 1386 ml 1222 ml 855 ml Output Total 500 ml 550 ml 300 ml Balance 886 ml 672 ml 555 ml Result Diagram: 04/22/16 0340 04/22/16 0340 Imaging Last 48 hours Impressions Chest X-Ray 04/20/16 0000 Signed Impressions: Service Date/Time: Wednesday, April 20, 2016 02:33 - CONCLUSION: 1. New right subclavian central venous catheter with tip at the atriocaval junction. No pneumothorax or other acute cardiopulmonary disease. 2. Right midlung consolidation with volume loss not significantly changed. 3. Unchanged endotracheal tube and nasogastric tube. Rodrigo Mccallum MD Chest X-Ray 04/19/16 1211 Signed Impressions: Service Date/Time: Tuesday, April 19, 2016 12:44 - CONCLUSION: ET tube in good position. Scott Archuleta MD FACR Chest X-Ray 04/19/16 1132 Signed Impressions: Service Date/Time: Tuesday, April 19, 2016 11:46 - CONCLUSION: New consolidative changes right upper lobe suspicious for inflammatory process. Scott Archuleta MD FACR Head CT 04/19/16 0000 Signed Impressions: Service Date/Time: Tuesday, April 19, 2016 11:37 - CONCLUSION: Cortical atrophy and microvascular ischemic demyelinative change. No acute intracranial abnormality is seen. Reinier Archuleta MD Objective Remarks HEENT/ Neuro: Sedated, arousable, following commands on holding sedation, attempts to move both upper extremities. Orally intubated, Pallor present, no icterus, tongue/ mucosa moist. Pupils 3 mm bilaterally reacting actively to light. Neck: No JVD Chest/Pulm: on mech vent, good air entry bilaterally, no wheezing or crackles. Scattered rhonchi CVS: S1-S2 regular, no murmur GI/abdomen: soft, nontender, bowel sounds sluggish Extremities: warm bilaterally. left LE AKA, no edema. Date of Insertion: Apr 19, 2016 Line: Central Venous Catheter Location: Subclavian A/P Assessment and Plan 70 year-old female with: Encephalopathy Septic shock Pneumonia E coli UTI Anemia Dementia COPD Coronary artery disease Diabetes mellitus Hypertension Hyperlipidemia History of CHF Dementia Plan: Neuro: Propofol/ fentanyl as needed while intubated for vent synchrony. Head CT negative for bleed. Altered mental status possibly secondary to delirium. Noted consult by neurology Dr. Dixon. Daily sedation vacation. Cardiovascular: IV hydration, watch for hypotension. Continue Plavix. Hold coreg in view of hypotension. Off Levophed since 04/22. Pulmonary: Intubated for airway protection. Continue mechanical ventilation, vent bundle, bronchodilators as needed. Pulmonary toilet. Sputum sent for Gram stain and cultures. Daily C Pap trials to decide extubation GI/liver: Continue tube feeds and advanced to goal as tolerated. /renal: IV hydration, strict intake output, monitor and replete electrolytes, follow BUN/creatinine. ID: Follow-up cultures. Urine culture with E coli. Empiric antibiotic coverage with IV vancomycin/Zosyn. We'll stop vancomycin IV on 04/22. Follow up on sputum Gram stain and cultures. Endocrine: SSI for glycemic control as needed Heme: Follow CBC Prophylaxis: Zantac/SCDs/Lovenox. Lines: Right subclavian central line (04/19), left axillary arterial line (04/20 ) Condition critical Time spent on critical care excluding procedures 35 minutes Bhavesh Monroe MD Apr 23, 2016 11:09
[2016-04-23] MEDS: SODIUM CHLOR 0.9% 1000 ML INJ 1,000 ML IV SCH (14:44)
[2016-04-23] MEDS: ENOXAPARIN SODIUM 40 MG/0.4 ML SYRINGE SQ SCH (14:44)
[2016-04-24] VITALS (17 sets, daily range): BP systolic 102–207; BP diastolic 46–77; PULSE 73–131; RESP 12–18; TEMP 97.4–98.8; O2SAT 94–100
[2016-04-24] MEDS: SODIUM CHLORIDE 0.9% FLUSH 5 ML FLUSH IVF SCH ×2 (02:57→08:49)
[2016-04-24] MEDS: PIPERACIL-TAZO 4.5 GM PREMIX 100 ML IV SCH ×4 (02:57→17:36)
[2016-04-24] MEDS: DEXTROSE 50% IN WATER 50 ML VIAL(D50) IV PRN ×2 (03:06→04:59)
[2016-04-24] MEDS: CHLORHEXIDINE GLUCONATE 2 % 1 PACK (2 CLOTHS) TOP SCH (04:00)
[2016-04-24] MEDS: INSULIN ASPART SUPPLEMENTAL SCALE SQ SCH ×4 (05:00→17:37)
[2016-04-24 06:25] LABS: AUTOMATED NEUTROPHIL # 8.1 TH/MM3 (1.8-7.7); BASOPHIL % 0.3 % (0.0-2.0); EOSINOPHIL # 0.1 TH/MM3 (0-0.4); EOSINOPHIL % 0.8 % (0.0-4.0); HEMATOCRIT 25.3 % (35.0-46.0); HEMO FLAGS DIFF FINAL; LYMPH % 7.2 % (9.0-44.0); LYMPHOCYTE # 0.7 TH/MM3 (1.0-4.8); MEAN CELL VOLUME 86.2 FL (80.0-100.0); MEAN CORPUSCULAR HEMOGLOBIN 27.1 PG (27.0-34.0); MEAN CORPUSCULAR HGB CONC 31.5 % (32.0-36.0); MONO % 4.4 % (0.0-8.0); NEUT % 87.3 % (16.0-70.0); PLATELET COUNT 114 TH/MM3 (150-450); RED BLOOD COUNT 2.94 MIL/MM3 (4.00-5.30); WHITE BLOOD COUNT 9.3 TH/MM3 (4.0-11.0)
[2016-04-24 06:56] LABS: ALKALINE PHOSPHATASE 97 U/L (45-117); ALT (GPT) 11 U/L (10-53); ANION GAP 3 MEQ/L (5-15); AST (GOT) 7 U/L (15-37); BICARBONATE 34.8 MEQ/L (21.0-32.0); BLOOD UREA NITROGEN 9 MG/DL (7-18); CHLORIDE 106 MEQ/L (98-107); GLOMERULAR FILTRATION RATE 138 ML/MIN (>89); MAGNESIUM 1.8 MG/DL (1.5-2.5); SODIUM (NA) 144 MEQ/L (136-145); TOTAL BILIRUBIN ADULT 0.2 MG/DL (0.2-1.0)
[2016-04-24 08:00] LABS: POTASSIUM 2.7 MEQ/L (3.5-5.1)
[2016-04-24] MEDS: CHLORHEXIDINE 0.12% (ORAL KIT) 15 ML CUP MT SCH (08:00)
[2016-04-24] MEDS: INSULIN DETEMIR 100 UNITS/ML VIAL SQ SCH (08:49)
--- NOTE | 2016-04-24 08:51 | HHI.PR ---
Subjective Remarks Seen and evaluated in follow-up for resolving sepsis secondary to UTI, pneumonia. Continuing with antibiotics. Off pressors and extubated yesterday without difficulty. More awake today. Discussed with [facility]. Patient with poor oral intake. Objective Vitals Vital Signs Date Time Temp Pulse Resp B/P Pulse Ox O2 Delivery O2 Flow Rate FiO2 04/24/16 06:00 79 04/24/16 04:00 98.0 83 14 111/56 100 04/24/16 04:00 86 04/24/16 02:00 79 04/24/16 00:00 85 04/24/16 00:00 98.1 85 14 108/54 94 04/23/16 22:00 93 04/23/16 20:00 98 04/23/16 20:00 98.0 98 16 131/62 93 04/23/16 19:20 98 Nasal Cannula 3.00 04/23/16 19:00 98 Nasal Cannula 3.00 04/23/16 18:00 95 04/23/16 16:00 98.1 92 16 127/67 98 04/23/16 16:00 108 04/23/16 14:00 95 04/23/16 12:00 100 04/23/16 12:00 98.8 102 15 111/55 98 04/23/16 11:35 94 Nasal Cannula 3.00 04/23/16 11:35 94 Nasal Cannula 3 04/23/16 10:00 111 04/23/16 08:40 40 I/O 04/23/16 04/23/16 04/23/16 04/24/16 04/24/16 04/24/16 07:00 15:00 23:00 07:00 15:00 23:00 Intake Total 802 ml 697 ml 682 ml Output Total 300 ml 450 ml 1850 ml Balance 502 ml 247 ml -1168 ml Intake Oral 60 ml IV Total 370 ml 397 ml 622 ml Tube Feeding 432 ml 300 ml Output Urine Total 300 ml 450 ml 1350 ml Stool Total 500 ml Result Diagram: 04/24/16 0500 04/24/16 0500 Date of Insertion: Apr 19, 2016 Line: Central Venous Catheter Location: Subclavian A/P Problem List: (1) Sepsis ICD Code: A41.9 Status: Acute Plan: Continue with antibiotics for Escherichia coli UTI/HCAP Zosyn IV Leukocytosis and blood pressure improved (2) Diabetes ICD Code: E11.9 Status: Chronic Plan: Continue with sliding scale insulin and hold Levemir due to hypoglycemia , diabetic diet (poor oral intake) glucerna Home regimen reviewed. We'll reinstitute oral medications and Levemir once diet stabilizes (3) UTI (urinary tract infection) ICD Code: N39.0 Status: Acute Plan: E Coli Sepsis resolving (4) Hypokalemia ICD Code: E87.6 Status: Acute Plan: We'll continue to replace and follow trend (5) Pneumonia ICD Code: J18.9 Status: Acute Plan: HCAP, sputum neg (6) Metabolic encephalopathy ICD Code: G93.41 Status: Acute Plan: Improved. Likely underlying dementia with resolving encephalopathy from sepsis. Continue current medications we'll check ammonia level and resume antidepressants (7) Acute respiratory failure ICD Code: J96.00 Status: Acute Plan: Resolved and extubated (intubated for airway protection due to altered mental status). Patient with a history of CHF and COPD. Echo 01/2016 shows preserved ejection fraction with slightly elevated pulmonary artery pressures. Assessment and Plan Continue with Lovenox and Zantac Left axillary arterial line, right subclavian central line Discharge Planning SNF resident Problem Qualifiers (1) Pneumonia: Qualified Code: J18.1 - Pneumonia of right upper lobe due to infectious organism (2) Acute respiratory failure: Qualified Code: J96.00 - Acute respiratory failure, unspecified whether with hypoxia or hypercapnia Jade Corbin MD Apr 24, 2016 08:51
[2016-04-24] MEDS: POTASSIUM CHLOR 40 MEQ PREMIX 100 ML IV PRN ×2 (08:55→12:51)
[2016-04-24] MEDS: RANITIDINE HCL SYRUP 150 MG/10 ML UDC TUBE SCH (08:55)
[2016-04-24] MEDS: ESCITALOPRAM OXALATE 10 MG TAB PO SCH (09:02)
[2016-04-24] MEDS: ENOXAPARIN SODIUM 40 MG/0.4 ML SYRINGE SQ SCH (14:20)
[2016-04-24] MEDS: SODIUM CHLOR 0.9% 1000 ML INJ 1,000 ML IV SCH (15:00)
[2016-04-24] MEDS ORDERED: FUROSEMIDE 40 MG/4 ML VIAL ONE (15:40)
[2016-04-24] MEDS ORDERED: FUROSEMIDE 40 MG/4 ML VIAL IV PUSH ONE (15:45)
[2016-04-24 17:19] LABS: BLOOD GAS BASE EXCESS 0.8 mmol/L (-2-2); BLOOD GAS CARBOXYHEMOGLOBIN 1.4 % (0-4); BLOOD GAS HCO3 28 mmol/L (22-26); BLOOD GAS METHEMOGLOBIN 0.8 % (0-2); BLOOD GAS O2 HGB SATURATION 97 % (90-100); BLOOD GAS OXYGEN CONTENT 13.3 Vol % (12.0-20.0); BLOOD GAS PCO2 79 mmHg (38-42); BLOOD GAS PO2 161 mmHg (61-120); BLOOD GAS TOTAL HGB 9.5 G/DL (12.0-16.0); TEMP CORR TO 98.6
[2016-04-24 17:20] LABS: CRITICAL VALUE YES; DRAW SITE ART LINE; FIO2 100 %; STAT YES
[2016-04-24] MEDS ORDERED: ETOMIDATE 20 MG/10 ML VIAL ONE (17:47)
--- NOTE | 2016-04-24 18:03 | RADRPT ---
EXAM DATE/TIME: 04/24/2016 16:48 [facility] COMPARISON: CHEST SINGLE AP, April 22, 2016, 4:16. INDICATIONS : Respiratory failure. MEDICAL HISTORY : Hypertension. Diabetes mellitus type 2. Dementia. Deep vein thrombosis. SURGICAL HISTORY : None. ENCOUNTER: Subsequent ACUITY: 4 - 6 days PAIN SCORE: Non-responsive. LOCATION: Chest. FINDINGS: Right subclavian line is present with tip overlapping the expected region of the SVC. Right pleural e ffusion is present with diffuse airspace process in the right lung worse since the prior exam. The le ft lung is clear. Possibility of collapse right middle and lower lung should also be entertained. ET tube and NG tube have been removed. CONCLUSION: Right pleural effusion and worsening airspace process in the right lung and possibility of collapsed lung should also be entertained. Noemi House MD on April 24, 2016 at 18:00 Board Certified Radiologist. This report was verified electronically.
[2016-04-24] MEDS: NOREPINEPHRINE-DEXTROSE DRIP 250 ML IV SCH (18:32)
[2016-04-24] MEDS: fentaNYL DRIP 250 ML IV SCH (18:32)
--- NOTE | 2016-04-24 18:35 | RADRPT ---
EXAM DATE/TIME: 04/24/2016 18:09 [facility] COMPARISON: CHEST SINGLE AP, April 24, 2016, 16:48. INDICATIONS : Post intubation. MEDICAL HISTORY : None. SURGICAL HISTORY : None. ENCOUNTER: Initial ACUITY: 3 days PAIN SCORE: Non-responsive. LOCATION: Bilateral chest FINDINGS: There is worsening opacification of the right lung may be due to worsening collapse. Right pleural ef fusion is again seen. ET tube is present with tip overlapping approximately 4 cm above the nesha. CONCLUSION: Worsening opacification of the right lung possibly due to worsening collapse and mucous plugging shou ld be entertained. Noemi House MD on April 24, 2016 at 18:32 Board Certified Radiologist. This report was verified electronically.
[2016-04-24] MEDS ORDERED: ROCURONIUM INJ 50 MG/5 ML VIAL IV ONE (18:45)
[2016-04-24] MEDS ORDERED: SODIUM CHLORID 0.9% 500 ML INJ 500 ML IV ONE (18:45)
[2016-04-24] MEDS ORDERED: VECURONIUM BROMIDE 10 MG VIAL IV PUSH ONE (19:30)
--- NOTE | 2016-04-24 20:05 | RADRPT ---
EXAM DATE/TIME: 04/24/2016 19:43 [facility] COMPARISON: CHEST SINGLE AP, April 24, 2016, 18:09. INDICATIONS : Post bronchoscopy. MEDICAL HISTORY : Hypertension. Diabetes mellitus type 2. Dementia. Deep vein thrombosis. SURGICAL HISTORY : None. ENCOUNTER: Subsequent ACUITY: 4 - 6 days PAIN SCORE: Non-responsive. LOCATION: Bilateral chest FINDINGS: There is improvement in the aeration of the right lung particularly the right middle and lower lobe s jone the prior study. Dense consolidation right upper lobe remains. The rest of the examination has n ot significantly changed. CONCLUSION: Improvement in the aeration of the right mid and lower lung garces since the prior examination to a s ignificant degree. Noemi House MD on April 24, 2016 at 20:02 Board Certified Radiologist. This report was verified electronically.
[2016-04-24] MEDS: RESP: ALBUTEROL 2.5 MG/IPRATROPIUM 0.5 MG NEB (SCH) NEB (20:35)
[2016-04-24] MEDS: RESP: ACETYLCYSTEINE 10% 30 ML NEB NEB SCH (20:35)
[2016-04-24 21:24] LABS: BLOOD GAS BASE EXCESS 3.9 mmol/L (-2-2); BLOOD GAS CARBOXYHEMOGLOBIN 1.3 % (0-4); BLOOD GAS HCO3 28 mmol/L (22-26); BLOOD GAS METHEMOGLOBIN 0.9 % (0-2); BLOOD GAS O2 HGB SATURATION 98 % (90-100); BLOOD GAS OXYGEN CONTENT 14.9 Vol % (12.0-20.0); BLOOD GAS PCO2 41 mmHg (38-42); BLOOD GAS PO2 368 mmHg (61-120); BLOOD GAS TOTAL HGB 10.2 G/DL (12.0-16.0); CRITICAL VALUE NO; OXYGEN DEVICE VENTILATOR; TEMP CORR TO 98.6
[2016-04-24 21:25] LABS: DRAW SITE ART LINE; FIO2 100 %; STAT NO; VENT SETTINGS AC/16/500/PEEP10
--- NOTE | 2016-04-24 22:39 | HHI.CCPN ---
Subjective Remarks/Hospital Course 04/19: Patient is a 70-year-old female with past medical history of HTN, HLD, DM , dementia, COPD, CAD who presents the emergency department for altered mental status as a stroke alert. Reportedly per patient's care facility, [facility] and [facility], patient was awake and alert and conversing this morning. At approximately 11 AM her mental status decompensated, she became essentially completely unresponsive and EMS was called. Blood glucose was normal. Reportedly last seen normal at 11 AM. No focal deficit of the extremities, but patient was entirely nonverbal and given her acute change in mental status a stroke alert was called prehospital. Patient was altered and not able to participate with history or physical examination. She is anticoagulated on Plavix. Patient was evaluated by ER physician and in view of inability to protect airway and unresponsiveness was intubated and placed on mechanical ventilation. She received a 10 mg and succinylcholine 150 mg for intubation however following that has not required any sedation. Chest x-ray showed right upper lobe infiltrate, head CT was negative for bleed. Case was discussed by ER physician and neurology Dr. Dixon, patient was not deemed to be a candidate for TPA and there was a question whether this was a stroke or sepsis with pneumonia/UTI causing altered mental status. Patient was accepted for admission by critical care medicine service. When I evaluated the patient she was orally intubated on mechanical ventilation essentially unresponsive. History was obtained by discussion with ER physician and reviewing records. 04/20: Developed hypotension last night. Received 1.5 L fluid bolus followed by initiation of Levophed for pressor support after placement of right subclavian central line. Remains sedated, orally intubated on mechanical ventilation, arousable. Appears to not her head on commands. On Levophed 7 mics per minute. 04/21: Remains sedated, orally intubated on mechanical ventilation. Remains on Levophed for pressor support. Tolerating tube feeds. 04/22: Sedated, arousable, orally intubated on mechanical ventilation. Levophed for pressor support, being titrated down. Tolerating tube feeds. 04/23: Remains sedated, easily arousable, orally intubated on mechanical ventilation. Off Levophed. Tolerating tube feeds. Failed C Pap trials yesterday. 04/24: She was extubated yesterday and wasn't nasal cannula 2 L/m. She was transferred to hospitalist service however this evening she decompensated with increasing O2 requirement. Chest x-ray done this evening revealed atelectasis involving right lung with volume loss. Patient developed worsening respiratory distress spike 100% nonrebreather facemask and was emergently intubated and placed on mechanical ventilation. Post intubation chest x-ray revealed right lung atelectasis probably secondary to mucous plugging with ET tube above nesha. Emergent bronchoscopy was performed with significant mucus plugging noted involving right sided airways. BL was performed with post-bronchoscopy chest x-ray revealing significant improvement in aeration of right middle lobe and right lower lobe with continued atelectasis/opacification of right upper lobe. Patient developed hypotension following intubation with sedation and was started on Levophed for pressor support after receiving a fluid bolus. Objective Vital Signs Date Time Temp Pulse Resp B/P Pulse Ox O2 Delivery O2 Flow Rate FiO2 04/24/16 20:38 100 100 04/24/16 18:00 73 04/24/16 16:00 97.4 18 207/74 129/63 04/24/16 15:43 Non-Rebreather 15.00 Intake and Output 04/23/16 04/23/16 04/24/16 08:00 16:00 00:00 Intake Total 802 ml 697 ml Output Total 300 ml 450 ml Balance 502 ml 247 ml Result Diagram: 04/24/16 0500 04/24/16 1720 Other Results Microbiology Date/Time Procedure Status Source Growth 04/22/16 09:30 Gram Stain - Final Complete Sputum Endotracheal 04/22/16 09:30 Sputum Culture - Final Complete Sputum Endotracheal NO GROWTH IN 48 HOURS. Laboratory Tests Test 04/24/16 04/24/16 17:15 20:45 Blood Gas Puncture Site ART LINE ART LINE Blood Gas Patient Temperature 98.6 98.6 Blood Gas HCO3 28 mmol/L 28 mmol/L (22-26) (22-26) Blood Gas Base Excess 0.8 mmol/L 3.9 mmol/L (-2-2) (-2-2) Blood Gas Oxygen Saturation 97 % (90-100) 98 % (90-100) Arterial Blood pH 7.18 7.44 (7.380-7.420) (7.380-7.420) Arterial Blood Partial 79 mmHg (38-42) 41 mmHg (38-42) Pressure CO2 Arterial Blood Partial 161 mmHg 368 mmHg Pressure O2 (61-120) (61-120) Arterial Blood Oxygen Content 13.3 Vol % 14.9 Vol % (12.0-20.0) (12.0-20.0) Arterial Blood 1.4 % (0-4) 1.3 % (0-4) Carboxyhemoglobin Arterial Blood Methemoglobin 0.8 % (0-2) 0.9 % (0-2) Blood Gas Hemoglobin 9.5 G/DL 10.2 G/DL (12.0-16.0) (12.0-16.0) Oxygen Delivery Device Non-Rebreathing VENTILATOR Mask Blood Gas Inspired Oxygen 100 % 100 % Blood Gas Ventilator Setting AC/16/500/PEEP10 Imaging Last 48 hours Impressions Chest X-Ray 04/20/16 0000 Signed Impressions: Service Date/Time: Wednesday, April 20, 2016 02:33 - CONCLUSION: 1. New right subclavian central venous catheter with tip at the atriocaval junction. No pneumothorax or other acute cardiopulmonary disease. 2. Right midlung consolidation with volume loss not significantly changed. 3. Unchanged endotracheal tube and nasogastric tube. Rodrigo Mccallum MD Chest X-Ray 04/19/16 1211 Signed Impressions: Service Date/Time: Tuesday, April 19, 2016 12:44 - CONCLUSION: ET tube in good position. Scott Archuleta MD FACR Chest X-Ray 04/19/16 1132 Signed Impressions: Service Date/Time: Tuesday, April 19, 2016 11:46 - CONCLUSION: New consolidative changes right upper lobe suspicious for inflammatory process. Scott Archuleta MD FACR Head CT 04/19/16 0000 Signed Impressions: Service Date/Time: Tuesday, April 19, 2016 11:37 - CONCLUSION: Cortical atrophy and microvascular ischemic demyelinative change. No acute intracranial abnormality is seen. Reinier Archuleta MD Objective Remarks HEENT/ Neuro: Sedated, arousable, Orally intubated, Pallor present, no icterus, tongue/ mucosa moist. Pupils 3 mm bilaterally reacting actively to light. Neck: No JVD Chest/Pulm: on mech vent, entry decreased over right lung field, no wheezing or crackles. Scattered rhonchi CVS: S1-S2 regular, no murmur GI/abdomen: soft, nontender, bowel sounds sluggish Extremities: warm bilaterally. left LE AKA, trace edema. Urinary Catheter: Yes Assessment to: Continue Vascular Central Line Catheter: Yes Assessment to: Continue Date of Insertion: Apr 19, 2016 Line: Central Venous Catheter Location: Subclavian A/P Assessment and Plan 70 year-old female with: Encephalopathy Septic shock Pneumonia E coli UTI Anemia Dementia COPD Coronary artery disease Diabetes mellitus Hypertension Hyperlipidemia History of CHF Dementia Plan: Neuro: Versed/ fentanyl as needed while intubated for vent synchrony. Head CT negative for bleed. Altered mental status possibly secondary to delirium. Noted consult by neurology Dr. Dixon. Daily sedation vacation. Patient was awake and alert following extubation yesterday. Cardiovascular:Watch for hypotension. Continue Plavix. Hold coreg in view of hypotension. Was Off Levophed since 04/22, resume following intubation on 04/24 following fluid bolus Pulmonary: Extubated on 04/23 however reintubated on 04/24 due to mucous plugging with right lung collapse/ status post bronchoscopy with BALs following intubation on 04/24. Continue mechanical ventilation, vent bundle, bronchodilators as needed. Pulmonary toilet. Sputum sent for Gram stain and cultures. Daily C Pap trials to decide extubation GI/liver: Start tube feeds and advance to goal as tolerated. /renal: strict intake output, monitor and replete electrolytes, follow BUN/ creatinine. ID: Follow-up cultures. Urine culture with E coli. Empiric antibiotic coverage with IV vancomycin/Zosyn. Stopped vancomycin IV on 04/22. Follow-up repeat sputum Gram stain and cultures sent after reintubation on 04/24. Endocrine: SSI for glycemic control as needed Heme: Follow CBC Prophylaxis: Zantac/SCDs/Lovenox. Lines: Right subclavian central line (04/19), left axillary arterial line (04/20 ) Condition critical Time spent on critical care excluding procedures 35 minutes Bhavesh Monroe MD Apr 24, 2016 22:38
--- NOTE | 2016-04-24 22:42 | PD.PROCEDR ---
Procedure Note Procedure Procedure fiberoptic bronchoscopy/ BAL Indication: Left lung collapse/atelectasis with suspected mucus plugging Operators: Dr. Bhavesh Monroe Emergent procedure Anesthesia used Versed 5 mg IV, fentanyl 200 g IV, vecuronium 10 mg IV for neuromuscular blockade. Procedure: Patient was placed on 100% oxygen via ET tube/mechanical ventilator. After ensuring adequate sedation/analgesia/ neuromuscular blockade, fiberoptic bronchoscope was inserted via adapter on ET tube and advanced into the trachea upto the nesha. Subsequently bronchoscope was advanced down the right mainstem bronchus and significant mucus plugging was encountered involving right mainstem bronchus as well as distal airways. BAL was performed with removal of significant mucous plugs from right sided airways. Following this bronchoscope was withdrawn back to the nesha and advanced down the left sided airways with minimal mucoid secretions suctioned out however no major mucous plugs noted in the left lung. Bronchoscope was then withdrawn out of the ET tube, mechanical ventilation was continued. Postprocedure chest x-ray was ordered. Patient tolerated procedure well with no immediate complications noted. Bhavesh Monroe MD Apr 24, 2016 22:42
[2016-04-25] VITALS (19 sets, daily range): BP systolic 77–154; BP diastolic 41–59; PULSE 76–107; RESP 16; TEMP 98.4–99.4; O2SAT 91–100
[2016-04-25] MEDS: CHLORHEXIDINE 0.12% (ORAL KIT) 15 ML CUP MT SCH ×3 (02:48→21:13)
[2016-04-25] MEDS: PIPERACIL-TAZO 4.5 GM PREMIX 100 ML IV SCH ×5 (02:48→23:10)
[2016-04-25] MEDS: SODIUM CHLORIDE 0.9% FLUSH 5 ML FLUSH IVF SCH ×3 (02:49→21:00)
[2016-04-25] MEDS: INSULIN ASPART SUPPLEMENTAL SCALE SQ SCH ×5 (02:49→23:10)
[2016-04-25] MEDS: MIDAZOLAM 100 MG/ML INJ 100 ML IV SCH ×2 (02:51→08:44)
[2016-04-25] MEDS: RESP: ACETYLCYSTEINE 10% 30 ML NEB NEB SCH ×4 (03:08→22:00)
[2016-04-25] MEDS: RESP: ALBUTEROL 2.5 MG/IPRATROPIUM 0.5 MG NEB (SCH) NEB ×4 (03:08→21:27)
[2016-04-25] MEDS: CHLORHEXIDINE GLUCONATE 2 % 1 PACK (2 CLOTHS) TOP SCH (04:00)
[2016-04-25] MEDS: NOREPINEPHRINE-DEXTROSE DRIP 250 ML IV SCH ×3 (05:30→23:10)
--- NOTE | 2016-04-25 07:49 | RADRPT ---
EXAM DATE/TIME: 04/25/2016 07:29 [facility] COMPARISON: CHEST SINGLE AP, April 24, 2016, 19:43. INDICATIONS : Respiratory failure. MEDICAL HISTORY : Hypertension. Diabetes mellitus type 2. Dementia. Deep vein thrombosis. SURGICAL HISTORY : None. ENCOUNTER: Subsequent ACUITY: 1 week PAIN SCORE: Non-responsive. LOCATION: Bilateral chest FINDINGS: A single view of the chest demonstrates reexpansion of the right upper lobe. Scattered patchy densiti es remain within the right midlung right lower lobe. Minimal densities in the left lower lobe. Heart normal in size. Endotracheal tube, nasogastric tube and right subclavian central line in stable posit ion. The cardiomediastinal contours are unremarkable. Osseous structures are intact. CONCLUSION: Reexpansion of the right upper lobe.Persistent patchy densities in the right midlung and right lower lobe with minimal disease in the left lower lobe. Dylon Chery MD on April 25, 2016 at 7:46 Board Certified Radiologist. This report was verified electronically.
[2016-04-25 07:55] LABS: BASOPHIL % 0.2 % (0.0-2.0); EOSINOPHIL # 0.1 TH/MM3 (0-0.4); EOSINOPHIL % 0.6 % (0.0-4.0); HEMATOCRIT 22.7 % (35.0-46.0); LYMPHOCYTE # 1.1 TH/MM3 (1.0-4.8); MEAN CELL VOLUME 85.7 FL (80.0-100.0); MEAN CORPUSCULAR HGB CONC 31.5 % (32.0-36.0); MONO % 6.9 % (0.0-8.0); NEUT % 83.3 % (16.0-70.0); PLATELET COUNT 147 TH/MM3 (150-450); RED BLOOD COUNT 2.65 MIL/MM3 (4.00-5.30)
[2016-04-25 07:58] LABS: HEMO FLAGS AUTO DIFF
[2016-04-25 08:19] LABS: BICARBONATE 30.9 MEQ/L (21.0-32.0); POTASSIUM 3.5 MEQ/L (3.5-5.1)
--- NOTE | 2016-04-25 08:35 | MG ---
cc: SASHA AUSTIN MD Lab No: 16- Date: 04/21/16 Age: 70 Sex: F Race: DATE OF 1945 A 70-year-old with an unresponsive state. DESCRIPTION delta activity, 20-50 microvolts with a lot of high-frequency continuous electrical myogenic artifact and periodic frontal waveforms, occurring paroxysmal bursts. No driving with photic stimulation. Single lead EKG shows sinus rhythm although there was some baseline artifact. INTERPRETATION Moderate encephalopathy with paroxysmal bursts of pseudoperiodic waveforms. Clinical correlation. Sasha Austin MD MG/BJF /9:20 PM /8:28 AM MTDD
[2016-04-25] MEDS: ESCITALOPRAM OXALATE 10 MG TAB PO SCH (08:43)
[2016-04-25] MEDS: RANITIDINE HCL SYRUP 150 MG/10 ML UDC TUBE SCH (08:43)
[2016-04-25 08:53] LABS: BANDS 1 % (0-6); METAMYELOCYTES 1 % (0-1); MYELOCYTES 1 % (0-0); NEUTROPHIL # MANUAL DIFF 10.9 TH/MM3 (1.8-7.7); POLYS (SEG NEUTROPHILS) 88 % (16-70); WBC DIFF SAMPLE 100
[2016-04-25 08:54] LABS: PLATELET ESTIMATE SMEAR LOW (NORMAL); SCAN/DIFF FINAL DIFF MANUAL
[2016-04-25 08:55] LABS: PLATELET MORPHOLOGY ENLARGED (NORMAL)
[2016-04-25] MEDS: fentaNYL DRIP 250 ML IV SCH (11:00)
[2016-04-25] MEDS: SODIUM CHLOR 0.9% 1000 ML INJ 1,000 ML IV SCH (15:26)
[2016-04-25] MEDS: ENOXAPARIN SODIUM 40 MG/0.4 ML SYRINGE SQ SCH (15:26)
--- NOTE | 2016-04-25 16:14 | HHI.CCPN ---
Subjective Remarks/Hospital Course 04/19: Patient is a 70-year-old female with past medical history of HTN, HLD, DM , dementia, COPD, CAD who presents the emergency department for altered mental status as a stroke alert. Reportedly per patient's care facility, [facility] and [facility], patient was awake and alert and conversing this morning. At approximately 11 AM her mental status decompensated, she became essentially completely unresponsive and EMS was called. Blood glucose was normal. Reportedly last seen normal at 11 AM. No focal deficit of the extremities, but patient was entirely nonverbal and given her acute change in mental status a stroke alert was called prehospital. Patient was altered and not able to participate with history or physical examination. She is anticoagulated on Plavix. Patient was evaluated by ER physician and in view of inability to protect airway and unresponsiveness was intubated and placed on mechanical ventilation. She received a 10 mg and succinylcholine 150 mg for intubation however following that has not required any sedation. Chest x-ray showed right upper lobe infiltrate, head CT was negative for bleed. Case was discussed by ER physician and neurology Dr. Dixon, patient was not deemed to be a candidate for TPA and there was a question whether this was a stroke or sepsis with pneumonia/UTI causing altered mental status. Patient was accepted for admission by critical care medicine service. When I evaluated the patient she was orally intubated on mechanical ventilation essentially unresponsive. History was obtained by discussion with ER physician and reviewing records. 04/20: Developed hypotension last night. Received 1.5 L fluid bolus followed by initiation of Levophed for pressor support after placement of right subclavian central line. Remains sedated, orally intubated on mechanical ventilation, arousable. Appears to not her head on commands. On Levophed 7 mics per minute. 04/21: Remains sedated, orally intubated on mechanical ventilation. Remains on Levophed for pressor support. Tolerating tube feeds. 04/22: Sedated, arousable, orally intubated on mechanical ventilation. Levophed for pressor support, being titrated down. Tolerating tube feeds. 04/23: Remains sedated, easily arousable, orally intubated on mechanical ventilation. Off Levophed. Tolerating tube feeds. Failed C Pap trials yesterday. 04/24: She was extubated yesterday and wasn't nasal cannula 2 L/m. She was transferred to hospitalist service however this evening she decompensated with increasing O2 requirement. Chest x-ray done this evening revealed atelectasis involving right lung with volume loss. Patient developed worsening respiratory distress spike 100% nonrebreather facemask and was emergently intubated and placed on mechanical ventilation. Post intubation chest x-ray revealed right lung atelectasis probably secondary to mucous plugging with ET tube above nesha. Emergent bronchoscopy was performed with significant mucus plugging noted involving right sided airways. BL was performed with post-bronchoscopy chest x-ray revealing significant improvement in aeration of right middle lobe and right lower lobe with continued atelectasis/opacification of right upper lobe. Patient developed hypotension following intubation with sedation and was started on Levophed for pressor support after receiving a fluid bolus. Subjective: 04/25 CXR this morning shows resolution of RUL atelectasis. On PEEP 10 to facilitate lung expansion. Requesting bed for percussion therapy. Remains on levophed 6 mcg/min because hypotensive on sedation. Objective Vital Signs Date Time Temp Pulse Resp B/P Pulse Ox O2 Delivery O2 Flow Rate FiO2 04/25/16 13:29 100 50 04/25/16 12:00 99.4 100 16 117/56 77/41 04/25/16 07:00 Mechanical Ventilator 04/24/16 15:43 15.00 Intake and Output 04/24/16 04/24/16 04/24/16 07:59 15:59 23:59 Intake Total 682 ml 873 ml Output Total 1850 ml 450 ml Balance -1168 ml 423 ml Result Diagram: 04/25/16 0719 04/25/16 07 Other Results Laboratory Tests Test 04/24/16 04/24/16 17:15 20:45 Blood Gas Puncture Site ART LINE ART LINE Blood Gas Patient Temperature 98.6 98.6 Blood Gas HCO3 28 mmol/L 28 mmol/L (22-26) (22-26) Blood Gas Base Excess 0.8 mmol/L 3.9 mmol/L (-2-2) (-2-2) Blood Gas Oxygen Saturation 97 % (90-100) 98 % (90-100) Arterial Blood pH 7.18 7.44 (7.380-7.420) (7.380-7.420) Arterial Blood Partial 79 mmHg (38-42) 41 mmHg (38-42) Pressure CO2 Arterial Blood Partial 161 mmHg 368 mmHg Pressure O2 (61-120) (61-120) Arterial Blood Oxygen Content 13.3 Vol % 14.9 Vol % (12.0-20.0) (12.0-20.0) Arterial Blood 1.4 % (0-4) 1.3 % (0-4) Carboxyhemoglobin Arterial Blood Methemoglobin 0.8 % (0-2) 0.9 % (0-2) Blood Gas Hemoglobin 9.5 G/DL 10.2 G/DL (12.0-16.0) (12.0-16.0) Oxygen Delivery Device Non-Rebreathing VENTILATOR Mask Blood Gas Inspired Oxygen 100 % 100 % Blood Gas Ventilator Setting AC/16/500/PEEP10 Imaging Last 48 hours Impressions Chest X-Ray 04/20/16 0000 Signed Impressions: Service Date/Time: Wednesday, April 20, 2016 02:33 - CONCLUSION: 1. New right subclavian central venous catheter with tip at the atriocaval junction. No pneumothorax or other acute cardiopulmonary disease. 2. Right midlung consolidation with volume loss not significantly changed. 3. Unchanged endotracheal tube and nasogastric tube. Rodrigo Mccallum MD Chest X-Ray 04/19/16 1211 Signed Impressions: Service Date/Time: Tuesday, April 19, 2016 12:44 - CONCLUSION: ET tube in good position. Scott Archuleta MD FACR Chest X-Ray 04/19/16 1132 Signed Impressions: Service Date/Time: Tuesday, April 19, 2016 11:46 - CONCLUSION: New consolidative changes right upper lobe suspicious for inflammatory process. Scott Archuleta MD FACR Head CT 04/19/16 0000 Signed Impressions: Service Date/Time: Tuesday, April 19, 2016 11:37 - CONCLUSION: Cortical atrophy and microvascular ischemic demyelinative change. No acute intracranial abnormality is seen. Reinier Archuleta MD Objective Remarks Drips: Versed 3 mg/h Fentanyl 100 micrograms per hour Weakness at 6 mcg/m ACV tidal volume 500/rate 16/inspiratory time 1/PEEP 10/FiO2 50% Blood pressure 111/54 pulse 82 sats 100% GENERAL: Elderly female who is orotracheally intubated, critically ill -appearing SKIN: Warm and dry. HEAD: Atraumatic. Normocephalic. EYES: Pupils equal and round. No scleral icterus. ENT: No nasal bleeding or discharge. NECK: Trachea midline. No JVD. CARDIOVASCULAR: Regular rate and rhythm. No murmurs rubs or gallops. RESPIRATORY: Scattered rhonchi. Synchronous that today with vent. Equal breath sounds bilaterally. GASTROINTESTINAL: Abdomen soft, non-tender, nondistended. Tolerating tube feeds with Glucerna 1.5 at 50 mL per hour. Dignishield in place with liquid brown stool. 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 Date of Insertion: Apr 19, 2016 Line: Central Venous Catheter Location: Subclavian A/P Assessment and Plan 70 year-old female with: Encephalopathy Septic shock Pneumonia E coli UTI Anemia Dementia COPD Coronary artery disease Diabetes mellitus Hypertension Hyperlipidemia History of CHF Dementia Plan: Neuro: Dementia Fentanyl as needed while intubated for vent synchrony. Will d/c versed drip. Use versed prn. Head CT negative for bleed. Altered mental status possibly secondary to delirium. Seen by neurology Dr. Dixon. Daily sedation vacation. Patient was awake and alert following extubation 04/23 Cardiovascular: Hypotension and likely related to sedation. Septic shock (resolved) Coronary artery disease Continue Plavix. Hold coreg in view of hypotension. Was Off Levophed since 04/22 , but was resumed after mucous plug with reintubation and sedation. Titrate to maintain mean R junk pressure greater than 65 Pulmonary: Acute respiratory failure Right lung mucous plug Pneumonia COPD Extubated on 04/23 however reintubated on 04/24 due to mucous plugging with right lung collapse/ status post bronchoscopy with BALs following intubation on 04/24. Continue mechanical ventilation, vent bundle, DuoNeb every 4 hours and as needed. Pulmonary toilet. Sputum sent for Gram stain and cultures. Daily CPAP trials to decide extubation. Place on bed that will allow percussion therapy. GI/liver: Place on Glucerna 1.5 with goal rate 45 mL per hour with while off propofol per nutrition recommendations. [place] shield in place, monitor stool output FEN/renal: Hypokalemia (resolved) Strict intake output, monitor and replete electrolytes, follow BUN/creatinine. ID: UTI Healthcare associated pneumonia On Zosyn since 04/19#7. Stopped vancomycin IV on 04/22. Follow-up repeat sputum Gram stain and cultures sent after reintubation on 04/24. Microbiology: 04/19blood culture 2 setsno growth today 1220urine Legionella and pneumococcal antigen negative 04/19urine culture positive for Escherichia coli sensitive to Zosyn. 03/2016influenza A and B antigen negative 04/22sputum cultureno growth to date 04/24sputum cultureGram stain with no organisms. Endocrine: Medium dose SSI with bedside glucose every 6 hours (13 units of coverage) glucose is 240. Detemir has been on hold. Will resume at 5 units subcutaneous every 12 hours. Heme: Follow CBC Prophylaxis: Zantac for stress ulcer prophylaxis/SCDs/Lovenox milligram subcutaneous daily. Lines: Right subclavian central line (04/19) #7, left axillary arterial line () #6 Time spent on critical care excluding procedures 35 minutes Kortney Luna MD Apr 25, 2016 16:14
[2016-04-25] MEDS ORDERED: MIDAZOLAM HCL 2 MG/2 ML VIAL IV PUSH PRN (17:00)
[2016-04-25] MEDS: INSULIN DETEMIR 100 UNITS/ML VIAL SQ SCH (21:13)
[2016-04-26] VITALS (18 sets, daily range): BP systolic 83–146; BP diastolic 45–65; PULSE 78–111; RESP 16–22; TEMP 97.9–100.4; O2SAT 92–100
[2016-04-26] MEDS: CHLORHEXIDINE GLUCONATE 2 % 1 PACK (2 CLOTHS) TOP SCH ×2 (04:00→19:05)
[2016-04-26] MEDS: RESP: ALBUTEROL 2.5 MG/IPRATROPIUM 0.5 MG NEB (SCH) NEB ×4 (04:03→21:22)
[2016-04-26] MEDS: RESP: ACETYLCYSTEINE 10% 30 ML NEB NEB SCH ×4 (04:06→21:34)
[2016-04-26] MEDS: INSULIN ASPART SUPPLEMENTAL SCALE SQ SCH ×4 (05:15→23:17)
[2016-04-26] MEDS: PIPERACIL-TAZO 4.5 GM PREMIX 100 ML IV SCH ×4 (05:15→23:22)
--- NOTE | 2016-04-26 05:38 | RADRPT ---
EXAM DATE/TIME: 04/26/2016 05:00 [facility] COMPARISON: CHEST SINGLE AP, April 25, 2016, 7:29. INDICATIONS : Respiratory distress. MEDICAL HISTORY : Hypertension. Diabetes mellitus type 2. Dementia. Deep vein thrombosis. SURGICAL HISTORY : None. ENCOUNTER: Subsequent ACUITY: 1 week PAIN SCORE: Non-responsive. LOCATION: Bilateral chest FINDINGS: A single AP portable semierect view of the chest was obtained and again demonstrates an endotracheal tube in place with the tip approximately 3 cm above the nesha. A nasogastric tube is seen coursing t hrough the esophagus and into the stomach. The right subclavian central venous line remains in place. There has been an interval decrease in the patchy opacity in the right perihilar region and right lo wer lobe. Mild patchy residual remains. There is mild patchy opacity remaining at the left lung base as well. There is no definite effusion. The heart size is at the upper limits of normal. CONCLUSION: Mild interval improvement in opacity at the right lung base. Seb Mathur MD on April 26, 2016 at 5:34 Board Certified Radiologist. This report was verified electronically.
[2016-04-26 06:22] LABS: AUTOMATED NEUTROPHIL # 10.8 TH/MM3 (1.8-7.7); BASOPHIL # 0.1 TH/MM3 (0-0.2); BASOPHIL % 0.5 % (0.0-2.0); EOSINOPHIL # 0.1 TH/MM3 (0-0.4); HEMATOCRIT 22.4 % (35.0-46.0); HEMO FLAGS DIFF FINAL; LYMPH % 7.8 % (9.0-44.0); MEAN CELL VOLUME 85.5 FL (80.0-100.0); MEAN CORPUSCULAR HEMOGLOBIN 27.1 PG (27.0-34.0); MEAN CORPUSCULAR HGB CONC 31.7 % (32.0-36.0); MONO % 6.8 % (0.0-8.0); NEUT % 83.9 % (16.0-70.0); PLATELET COUNT 140 TH/MM3 (150-450); RED BLOOD COUNT 2.62 MIL/MM3 (4.00-5.30); RED CELL DISTRIBUTION WIDTH 19.2 % (11.6-17.2); WHITE BLOOD COUNT 12.9 TH/MM3 (4.0-11.0)
[2016-04-26 06:43] LABS: BICARBONATE 31.9 MEQ/L (21.0-32.0); POTASSIUM 3.2 MEQ/L (3.5-5.1)
[2016-04-26] MEDS: CHLORHEXIDINE 0.12% (ORAL KIT) 15 ML CUP MT SCH ×2 (08:00→20:14)
[2016-04-26] MEDS: INSULIN DETEMIR 100 UNITS/ML VIAL SQ SCH ×2 (08:04→20:14)
[2016-04-26] MEDS: ESCITALOPRAM OXALATE 10 MG TAB PO SCH (08:04)
[2016-04-26] MEDS: SODIUM CHLORIDE 0.9% FLUSH 5 ML FLUSH IVF SCH ×2 (08:04→20:13)
[2016-04-26] MEDS: RANITIDINE HCL SYRUP 150 MG/10 ML UDC TUBE SCH (08:05)
--- NOTE | 2016-04-26 10:33 | HHI.CCPN ---
Subjective Remarks/Hospital Course 04/19: Patient is a 70-year-old female with past medical history of HTN, HLD, DM , dementia, COPD, CAD who presents the emergency department for altered mental status as a stroke alert. Reportedly per patient's care facility, [facility] and [facility], patient was awake and alert and conversing this morning. At approximately 11 AM her mental status decompensated, she became essentially completely unresponsive and EMS was called. Blood glucose was normal. Reportedly last seen normal at 11 AM. No focal deficit of the extremities, but patient was entirely nonverbal and given her acute change in mental status a stroke alert was called prehospital. Patient was altered and not able to participate with history or physical examination. She is anticoagulated on Plavix. Patient was evaluated by ER physician and in view of inability to protect airway and unresponsiveness was intubated and placed on mechanical ventilation. She received a 10 mg and succinylcholine 150 mg for intubation however following that has not required any sedation. Chest x-ray showed right upper lobe infiltrate, head CT was negative for bleed. Case was discussed by ER physician and neurology Dr. Dixon, patient was not deemed to be a candidate for TPA and there was a question whether this was a stroke or sepsis with pneumonia/UTI causing altered mental status. Patient was accepted for admission by critical care medicine service. When I evaluated the patient she was orally intubated on mechanical ventilation essentially unresponsive. History was obtained by discussion with ER physician and reviewing records. 04/20: Developed hypotension last night. Received 1.5 L fluid bolus followed by initiation of Levophed for pressor support after placement of right subclavian central line. Remains sedated, orally intubated on mechanical ventilation, arousable. Appears to not her head on commands. On Levophed 7 mics per minute. 04/21: Remains sedated, orally intubated on mechanical ventilation. Remains on Levophed for pressor support. Tolerating tube feeds. 04/22: Sedated, arousable, orally intubated on mechanical ventilation. Levophed for pressor support, being titrated down. Tolerating tube feeds. 04/23: Remains sedated, easily arousable, orally intubated on mechanical ventilation. Off Levophed. Tolerating tube feeds. Failed C Pap trials yesterday. 04/24: She was extubated yesterday and wasn't nasal cannula 2 L/m. She was transferred to hospitalist service however this evening she decompensated with increasing O2 requirement. Chest x-ray done this evening revealed atelectasis involving right lung with volume loss. Patient developed worsening respiratory distress spike 100% nonrebreather facemask and was emergently intubated and placed on mechanical ventilation. Post intubation chest x-ray revealed right lung atelectasis probably secondary to mucous plugging with ET tube above nesha. Emergent bronchoscopy was performed with significant mucus plugging noted involving right sided airways. BL was performed with post-bronchoscopy chest x-ray revealing significant improvement in aeration of right middle lobe and right lower lobe with continued atelectasis/opacification of right upper lobe. Patient developed hypotension following intubation with sedation and was started on Levophed for pressor support after receiving a fluid bolus. Subjective: 04/25 CXR this morning shows resolution of RUL atelectasis. On PEEP 10 to facilitate lung expansion. Requesting bed for percussion therapy. Remains on levophed 6 mcg/min because hypotensive on sedation. 04/26 Patient is sedated with Versed/Fentanyl and intubated. Afebrile. Objective Vital Signs Date Time Temp Pulse Resp B/P Pulse Ox O2 Delivery O2 Flow Rate FiO2 04/26/16 08:10 98 35 04/26/16 08:00 97.9 106 16 108/52 83/46 04/26/16 07:00 Mechanical Ventilator 04/24/16 15:43 15.00 Intake and Output 04/25/16 04/25/16 04/26/16 08:00 16:00 00:00 Intake Total 160 ml 1263 ml 948 ml Output Total 1750 ml 720 ml 650 ml Balance -1590 ml 543 ml 298 ml Result Diagram: 04/26/16 0510 04/26/16 0510 Other Results Laboratory Tests Test 04/26/16 05:10 White Blood Count 12.9 TH/MM3 Red Blood Count 2.62 MIL/MM3 Hemoglobin 7.1 GM/DL Hematocrit 22.4 % Mean Corpuscular Volume 85.5 FL Mean Corpuscular Hemoglobin 27.1 PG Mean Corpuscular Hemoglobin 31.7 % Concent Red Cell Distribution Width 19.2 % Platelet Count 140 TH/MM3 Mean Platelet Volume 10.8 FL Neutrophils (%) (Auto) 83.9 % Lymphocytes (%) (Auto) 7.8 % Monocytes (%) (Auto) 6.8 % Eosinophils (%) (Auto) 1.0 % Basophils (%) (Auto) 0.5 % Neutrophils # (Auto) 10.8 TH/MM3 Lymphocytes # (Auto) 1.0 TH/MM3 Monocytes # (Auto) 0.9 TH/MM3 Eosinophils # (Auto) 0.1 TH/MM3 Basophils # (Auto) 0.1 TH/MM3 CBC Comment DIFF FINAL Differential Comment Sodium Level 143 MEQ/L Potassium Level 3.2 MEQ/L Chloride Level 104 MEQ/L Carbon Dioxide Level 31.9 MEQ/L Anion Gap 7 MEQ/L Blood Urea Nitrogen 9 MG/DL Creatinine 0.63 MG/DL Estimat Glomerular Filtration 94 ML/MIN Rate Random Glucose 149 MG/DL Calcium Level 7.6 MG/DL Imaging Last Impressions Chest X-Ray 04/26/16 0600 Signed Impressions: Service Date/Time: Tuesday, April 26, 2016 05:00 - CONCLUSION: Mild interval improvement in opacity at the right lung base. Seb Mathur MD Head CT 04/19/16 0000 Signed Impressions: Service Date/Time: Tuesday, April 19, 2016 11:37 - CONCLUSION: Cortical atrophy and microvascular ischemic demyelinative change. No acute intracranial abnormality is seen. Reinier Archuleta MD Objective Remarks Drips: Versed 3 mg/h Fentanyl 100 micrograms per hour Levophed 5 mics. ACV tidal volume 500/rate 16//PEEP 5 /FiO2 30% GENERAL: Elderly female who is orotracheally intubated, critically ill -appearing SKIN: Warm and dry. HEAD: Atraumatic. Normocephalic. EYES: Pupils equal and round. No scleral icterus. ENT: No nasal bleeding or discharge. NECK: Trachea midline. No JVD. CARDIOVASCULAR: Regular rate and rhythm. No murmurs rubs or gallops. RESPIRATORY: Scattered rhonchi. Synchronous that today with vent. Equal breath sounds bilaterally. GASTROINTESTINAL: Abdomen soft, non-tender, nondistended. 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 Head CT negative for bleed. Altered mental status possibly secondary to delirium. Seen by neurology Dr. Dixon. Daily sedation vacation. Patient was awake and alert following extubation reintubated 04/24 Cardiovascular: Hypotension and likely related to sedation. Septic shock (resolved) Coronary artery disease Continue to wean off Levophed monitor HR and BP keep MAP>65mmHg. On Plavix. Echo 01/31 EF 55-60% Pulmonary: Acute respiratory failure Right lung mucous plug Pneumonia COPD Extubated on 04/23 however reintubated on 04/24 due to mucous plugging with right lung collapse/ status post bronchoscopy with BALs following intubation on 04/24. Continue vent support keep sat >92% Vent bundle, DuoNeb every 4 hours and as needed. Pulmonary toilet. Daily CPAP trials as rito GI/liver: on Glucerna 1.5 with goal rate 45 mL per hour per nutrition recommendations. [place] shield in place, monitor stool output FEN/renal: Strict intake output, monitor and replete electrolytes, follow BUN/creatinine. Will need K replacement today. ID: UTI- E.coli Healthcare associated pneumonia On Zosyn since 04/19. Monitor for signs of infections ( Fever, WBC) Check C-diff PCR Microbiology: 04/19blood culture 2 setsno growth 1220urine Legionella and pneumococcal antigen negative 04/19urine culture positive for Escherichia coli sensitive to Zosyn. 03/2016influenza A and B antigen negative 04/22sputum cultureno growth to date 04/24sputum cultureGram stain with no organisms. Endocrine: Medium dose SSI with bedside glucose every 6 hours, On Levemir 5 units subcutaneous every 12 hours. Heme: Monitor CBC, transfuse 1u PRBC. Guaiac stool for heme. Prophylaxis: Zantac for stress ulcer prophylaxis/SCDs/Lovenox 40 mg SQ daily. Lines: Right subclavian central line (04/19) , left axillary arterial line () Time spent on critical care excluding procedures 30 minutes Ino Ibarra MD Apr 26, 2016 10:33
[2016-04-26] MEDS: POTASSIUM CHLOR 40 MEQ PREMIX 100 ML IV PRN ×2 (10:50→13:26)
[2016-04-26] MEDS: ENOXAPARIN SODIUM 40 MG/0.4 ML SYRINGE SQ SCH (13:27)
[2016-04-26] MEDS: NOREPINEPHRINE-DEXTROSE DRIP 250 ML IV SCH ×2 (13:27→20:13)
[2016-04-26] MEDS: SODIUM CHLOR 0.9% 1000 ML INJ 1,000 ML IV SCH ×2 (13:28→20:14)
[2016-04-26] MEDS: fentaNYL DRIP 250 ML IV SCH (20:13)
[2016-04-27] VITALS (21 sets, daily range): BP systolic 115–163; BP diastolic 56–87; PULSE 77–110; RESP 18–22; TEMP 97.7–99; O2SAT 91–100
[2016-04-27 03:00] LABS: C. DIFF EPI 027 PRESUMPTIVE NEGATIVE (NEGATIVE); C. DIFF TOXIN PCR NEGATIVE (NEGATIVE)
[2016-04-27] MEDS: RESP: ALBUTEROL 2.5 MG/IPRATROPIUM 0.5 MG NEB (SCH) NEB ×4 (03:09→19:53)
[2016-04-27] MEDS: RESP: ACETYLCYSTEINE 10% 30 ML NEB NEB SCH ×4 (03:09→19:53)
[2016-04-27] MEDS: PIPERACIL-TAZO 4.5 GM PREMIX 100 ML IV SCH ×4 (04:58→19:37)
[2016-04-27] MEDS: INSULIN ASPART SUPPLEMENTAL SCALE SQ SCH ×4 (04:59→22:41)
[2016-04-27 06:39] LABS: AUTOMATED NEUTROPHIL # 9.6 TH/MM3 (1.8-7.7); BASOPHIL % 0.3 % (0.0-2.0); EOSINOPHIL # 0.1 TH/MM3 (0-0.4); EOSINOPHIL % 1.2 % (0.0-4.0); HEMO FLAGS DIFF FINAL; LYMPH % 7.8 % (9.0-44.0); LYMPHOCYTE # 0.9 TH/MM3 (1.0-4.8); MEAN CELL VOLUME 84.5 FL (80.0-100.0); MEAN CORPUSCULAR HEMOGLOBIN 27.3 PG (27.0-34.0); MEAN CORPUSCULAR HGB CONC 32.3 % (32.0-36.0); MONO % 7.9 % (0.0-8.0); NEUT % 82.8 % (16.0-70.0); PLATELET COUNT 111 TH/MM3 (150-450); RED BLOOD COUNT 3.08 MIL/MM3 (4.00-5.30); RED CELL DISTRIBUTION WIDTH 17.7 % (11.6-17.2); WHITE BLOOD COUNT 11.6 TH/MM3 (4.0-11.0)
[2016-04-27 07:04] LABS: BICARBONATE 32.7 MEQ/L (21.0-32.0); MAGNESIUM 1.8 MG/DL (1.5-2.5); POTASSIUM 3.9 MEQ/L (3.5-5.1)
--- NOTE | 2016-04-27 08:47 | HHI.CCPN ---
Subjective Remarks/Hospital Course 04/19: Patient is a 70-year-old female with past medical history of HTN, HLD, DM , dementia, COPD, CAD who presents the emergency department for altered mental status as a stroke alert. Reportedly per patient's care facility, [facility] and [facility], patient was awake and alert and conversing this morning. At approximately 11 AM her mental status decompensated, she became essentially completely unresponsive and EMS was called. Blood glucose was normal. Reportedly last seen normal at 11 AM. No focal deficit of the extremities, but patient was entirely nonverbal and given her acute change in mental status a stroke alert was called prehospital. Patient was altered and not able to participate with history or physical examination. She is anticoagulated on Plavix. Patient was evaluated by ER physician and in view of inability to protect airway and unresponsiveness was intubated and placed on mechanical ventilation. She received a 10 mg and succinylcholine 150 mg for intubation however following that has not required any sedation. Chest x-ray showed right upper lobe infiltrate, head CT was negative for bleed. Case was discussed by ER physician and neurology Dr. Dixon, patient was not deemed to be a candidate for TPA and there was a question whether this was a stroke or sepsis with pneumonia/UTI causing altered mental status. Patient was accepted for admission by critical care medicine service. When I evaluated the patient she was orally intubated on mechanical ventilation essentially unresponsive. History was obtained by discussion with ER physician and reviewing records. 04/20: Developed hypotension last night. Received 1.5 L fluid bolus followed by initiation of Levophed for pressor support after placement of right subclavian central line. Remains sedated, orally intubated on mechanical ventilation, arousable. Appears to not her head on commands. On Levophed 7 mics per minute. 04/21: Remains sedated, orally intubated on mechanical ventilation. Remains on Levophed for pressor support. Tolerating tube feeds. 04/22: Sedated, arousable, orally intubated on mechanical ventilation. Levophed for pressor support, being titrated down. Tolerating tube feeds. 04/23: Remains sedated, easily arousable, orally intubated on mechanical ventilation. Off Levophed. Tolerating tube feeds. Failed C Pap trials yesterday. 04/24: She was extubated yesterday and wasn't nasal cannula 2 L/m. She was transferred to hospitalist service however this evening she decompensated with increasing O2 requirement. Chest x-ray done this evening revealed atelectasis involving right lung with volume loss. Patient developed worsening respiratory distress spike 100% nonrebreather facemask and was emergently intubated and placed on mechanical ventilation. Post intubation chest x-ray revealed right lung atelectasis probably secondary to mucous plugging with ET tube above nesha. Emergent bronchoscopy was performed with significant mucus plugging noted involving right sided airways. BL was performed with post-bronchoscopy chest x-ray revealing significant improvement in aeration of right middle lobe and right lower lobe with continued atelectasis/opacification of right upper lobe. Patient developed hypotension following intubation with sedation and was started on Levophed for pressor support after receiving a fluid bolus. Subjective: 04/25 CXR this morning shows resolution of RUL atelectasis. On PEEP 10 to facilitate lung expansion. Requesting bed for percussion therapy. Remains on levophed 6 mcg/min because hypotensive on sedation. 04/26 Patient is sedated with Versed/Fentanyl and intubated. Afebrile. 04/27 No acute events overnight. Sedated with Fentanyl and intubated, off versed. On Levophed 3 mics. Afebrile. s/p transfusion 1u PRBC yesterday- Hgb 8.4 this morning from 7.1 Objective Vital Signs Date Time Temp Pulse Resp B/P Pulse Ox O2 Delivery O2 Flow Rate FiO2 04/27/16 07:23 100 35 04/27/16 06:00 77 04/27/16 04:00 98.3 18 134/66 04/26/16 19:00 Mechanical Ventilator 04/24/16 15:43 15.00 Intake and Output 04/26/16 04/26/16 04/26/16 07:59 15:59 23:59 Intake Total 770 ml 1400 ml 688 ml Output Total 650 ml 1100 ml 400 ml Balance 120 ml 300 ml 288 ml Result Diagram: 04/27/16 0600 04/27/16 0600 Other Results Laboratory Tests Test 04/26/16 04/27/16 04/27/16 15:15 01:00 06:00 Blood Type O POSITIVE Antibody Screen NEGATIVE Crossmatch Leukocyte-Reduced Red Blood Cells Blood Bank Comment Stool C. difficile Toxin (PCR) NEGATIVE Stl C. difficile Toxin PRESUMPTIVE Epiderm 027 NEGATIVE White Blood Count 11.6 TH/MM3 Red Blood Count 3.08 MIL/MM3 Hemoglobin 8.4 GM/DL Hematocrit 26.0 % Mean Corpuscular Volume 84.5 FL Mean Corpuscular Hemoglobin 27.3 PG Mean Corpuscular Hemoglobin 32.3 % Concent Red Cell Distribution Width 17.7 % Platelet Count 111 TH/MM3 Mean Platelet Volume 10.6 FL Neutrophils (%) (Auto) 82.8 % Lymphocytes (%) (Auto) 7.8 % Monocytes (%) (Auto) 7.9 % Eosinophils (%) (Auto) 1.2 % Basophils (%) (Auto) 0.3 % Neutrophils # (Auto) 9.6 TH/MM3 Lymphocytes # (Auto) 0.9 TH/MM3 Monocytes # (Auto) 0.9 TH/MM3 Eosinophils # (Auto) 0.1 TH/MM3 Basophils # (Auto) 0.0 TH/MM3 CBC Comment DIFF FINAL Differential Comment Sodium Level 141 MEQ/L Potassium Level 3.9 MEQ/L Chloride Level 101 MEQ/L Carbon Dioxide Level 32.7 MEQ/L Anion Gap 7 MEQ/L Blood Urea Nitrogen 11 MG/DL Creatinine 0.60 MG/DL Estimat Glomerular Filtration 99 ML/MIN Rate Random Glucose 181 MG/DL Calcium Level 7.9 MG/DL Phosphorus Level 0.9 MG/DL Magnesium Level 1.8 MG/DL Imaging Last Impressions Chest X-Ray 04/26/16 0600 Signed Impressions: Service Date/Time: Tuesday, April 26, 2016 05:00 - CONCLUSION: Mild interval improvement in opacity at the right lung base. Seb Mathur MD Head CT 04/19/16 0000 Signed Impressions: Service Date/Time: Tuesday, April 19, 2016 11:37 - CONCLUSION: Cortical atrophy and microvascular ischemic demyelinative change. No acute intracranial abnormality is seen. Reinier Archuleta MD Objective Remarks Drips: Fentanyl 100 micrograms per hour Levophed 3 mics. GENERAL: Elderly female who is orotracheally intubated, critically ill -appearing SKIN: Warm and dry. HEAD: Atraumatic. Normocephalic. EYES: Pupils equal and round. No scleral icterus. ENT: No nasal bleeding or discharge. NECK: Trachea midline. No JVD. CARDIOVASCULAR: Regular rate and rhythm. No murmurs rubs or gallops. RESPIRATORY: Scattered rhonchi. Synchronous that today with vent. Equal breath sounds bilaterally. GASTROINTESTINAL: Abdomen soft, non-tender, nondistended. 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 Head CT negative for bleed. Altered mental status possibly secondary to delirium. Seen by neurology Dr. Dixon. Daily sedation vacation. Patient was awake and alert following extubation reintubated 04/24 Cardiovascular: Hypotension and likely related to sedation. Septic shock (resolved) Coronary artery disease Continue to wean off Levophed monitor HR and BP keep MAP>65mmHg. On Plavix. Echo 01/31 EF 55-60% Pulmonary: Acute respiratory failure Right lung mucous plug Pneumonia COPD Extubated on 04/23 however reintubated on 04/24 due to mucous plugging with right lung collapse/ status post bronchoscopy with BALs following intubation on 04/24. Continue vent support keep sat >92% Vent bundle, DuoNeb every 4 hours and as needed. Pulmonary toilet. Daily CPAP trials as rito GI/liver: on Glucerna 1.5 @ 45 mL per hour per nutrition recommendations. Mongolian shield in place, monitor stool output FEN/renal: Monitor renal function, I/O's, electrolytes replacement per protocol. Will need Phos replacement today. ID: UTI- E.coli Healthcare associated pneumonia On Zosyn since 04/19. Monitor for signs of infections ( Fever, WBC) C-diff PCR negative 04/27 Microbiology: 04/19blood culture 2 setsno growth 1220urine Legionella and pneumococcal antigen negative 04/19urine culture positive for Escherichia coli sensitive to Zosyn. 03/2016influenza A and B antigen negative 04/22sputum cultureno growth to date 04/24sputum cultureGram stain with no organisms. Endocrine: Medium dose SSI with bedside glucose every 6 hours, On Levemir 5 units subcutaneous every 12 hours. Heme: Monitor CBC, s/p transfusion 1u PRBC. Guaiac stool for heme negative. Prophylaxis: Zantac for stress ulcer prophylaxis/SCDs/Lovenox 40 mg SQ daily. Lines: Right subclavian central line (04/19) , left axillary arterial line () Time spent on critical care excluding procedures 30 minutes Ino Ibarra MD Apr 27, 2016 08:46
[2016-04-27] MEDS: ESCITALOPRAM OXALATE 10 MG TAB PO SCH (08:49)
[2016-04-27] MEDS: INSULIN DETEMIR 100 UNITS/ML VIAL SQ SCH ×2 (08:49→19:38)
[2016-04-27] MEDS: RANITIDINE HCL SYRUP 150 MG/10 ML UDC TUBE SCH (08:49)
[2016-04-27] MEDS: SODIUM CHLORIDE 0.9% FLUSH 5 ML FLUSH IVF SCH ×2 (08:49→19:38)
[2016-04-27] MEDS: CHLORHEXIDINE 0.12% (ORAL KIT) 15 ML CUP MT SCH ×2 (08:50→19:37)
[2016-04-27] MEDS: ENOXAPARIN SODIUM 40 MG/0.4 ML SYRINGE SQ SCH (15:25)
[2016-04-27] MEDS ORDERED: BUMETANIDE INJ 1 MG/4 ML VIAL IV PUSH ONE (16:00)
[2016-04-27] MEDS: CHLORHEXIDINE GLUCONATE 2 % 1 PACK (2 CLOTHS) TOP SCH (19:21)
[2016-04-27] MEDS: SODIUM CHLOR 0.9% 1000 ML INJ 1,000 ML IV SCH (19:38)
[2016-04-28] VITALS (20 sets, daily range): BP systolic 107–135; BP diastolic 53–72; PULSE 89–129; RESP 17–23; TEMP 98.2–98.9; O2SAT 90–100
[2016-04-28] MEDS: fentaNYL DRIP 250 ML IV SCH (03:25)
[2016-04-28] MEDS: RESP: ACETYLCYSTEINE 10% 30 ML NEB NEB SCH ×3 (03:47→15:02)
[2016-04-28] MEDS: RESP: ALBUTEROL 2.5 MG/IPRATROPIUM 0.5 MG NEB (SCH) NEB ×4 (03:47→20:44)
[2016-04-28] MEDS: INSULIN ASPART SUPPLEMENTAL SCALE SQ SCH ×4 (04:47→22:46)
[2016-04-28] MEDS: PIPERACIL-TAZO 4.5 GM PREMIX 100 ML IV SCH ×4 (04:47→22:48)
[2016-04-28 06:54] LABS: AUTOMATED NEUTROPHIL # 7.3 TH/MM3 (1.8-7.7); BASOPHIL % 0.1 % (0.0-2.0); EOSINOPHIL # 0.1 TH/MM3 (0-0.4); EOSINOPHIL % 1.2 % (0.0-4.0); HEMATOCRIT 25.5 % (35.0-46.0); HEMO FLAGS DIFF FINAL; LYMPH % 10.9 % (9.0-44.0); MEAN CELL VOLUME 84.5 FL (80.0-100.0); MEAN CORPUSCULAR HEMOGLOBIN 27.7 PG (27.0-34.0); MEAN CORPUSCULAR HGB CONC 32.8 % (32.0-36.0); MONO % 6.6 % (0.0-8.0); NEUT % 81.2 % (16.0-70.0); PLATELET COUNT 107 TH/MM3 (150-450); RED BLOOD COUNT 3.02 MIL/MM3 (4.00-5.30); RED CELL DISTRIBUTION WIDTH 17.9 % (11.6-17.2)
[2016-04-28 07:05] LABS: BICARBONATE 34.2 MEQ/L (21.0-32.0); POTASSIUM 3.3 MEQ/L (3.5-5.1)
[2016-04-28] MEDS: RANITIDINE HCL SYRUP 150 MG/10 ML UDC TUBE SCH (08:27)
[2016-04-28] MEDS: ESCITALOPRAM OXALATE 10 MG TAB PO SCH (08:27)
[2016-04-28] MEDS: INSULIN DETEMIR 100 UNITS/ML VIAL SQ SCH (08:27)
[2016-04-28] MEDS: SODIUM CHLORIDE 0.9% FLUSH 5 ML FLUSH IVF SCH ×2 (08:28→20:23)
[2016-04-28] MEDS: CHLORHEXIDINE 0.12% (ORAL KIT) 15 ML CUP MT SCH ×2 (08:29→20:23)
[2016-04-28] MEDS ORDERED: BUMETANIDE INJ 1 MG/4 ML VIAL IV PUSH ONE (09:15)
--- NOTE | 2016-04-28 09:22 | HHI.CCPN ---
Subjective Remarks/Hospital Course 04/19: Patient is a 70-year-old female with past medical history of HTN, HLD, DM , dementia, COPD, CAD who presents the emergency department for altered mental status as a stroke alert. Reportedly per patient's care facility, [facility] and [facility], patient was awake and alert and conversing this morning. At approximately 11 AM her mental status decompensated, she became essentially completely unresponsive and EMS was called. Blood glucose was normal. Reportedly last seen normal at 11 AM. No focal deficit of the extremities, but patient was entirely nonverbal and given her acute change in mental status a stroke alert was called prehospital. Patient was altered and not able to participate with history or physical examination. She is anticoagulated on Plavix. Patient was evaluated by ER physician and in view of inability to protect airway and unresponsiveness was intubated and placed on mechanical ventilation. She received a 10 mg and succinylcholine 150 mg for intubation however following that has not required any sedation. Chest x-ray showed right upper lobe infiltrate, head CT was negative for bleed. Case was discussed by ER physician and neurology Dr. Dixon, patient was not deemed to be a candidate for TPA and there was a question whether this was a stroke or sepsis with pneumonia/UTI causing altered mental status. Patient was accepted for admission by critical care medicine service. When I evaluated the patient she was orally intubated on mechanical ventilation essentially unresponsive. History was obtained by discussion with ER physician and reviewing records. 04/20: Developed hypotension last night. Received 1.5 L fluid bolus followed by initiation of Levophed for pressor support after placement of right subclavian central line. Remains sedated, orally intubated on mechanical ventilation, arousable. Appears to not her head on commands. On Levophed 7 mics per minute. 04/21: Remains sedated, orally intubated on mechanical ventilation. Remains on Levophed for pressor support. Tolerating tube feeds. 04/22: Sedated, arousable, orally intubated on mechanical ventilation. Levophed for pressor support, being titrated down. Tolerating tube feeds. 04/23: Remains sedated, easily arousable, orally intubated on mechanical ventilation. Off Levophed. Tolerating tube feeds. Failed C Pap trials yesterday. 04/24: She was extubated yesterday and wasn't nasal cannula 2 L/m. She was transferred to hospitalist service however this evening she decompensated with increasing O2 requirement. Chest x-ray done this evening revealed atelectasis involving right lung with volume loss. Patient developed worsening respiratory distress spike 100% nonrebreather facemask and was emergently intubated and placed on mechanical ventilation. Post intubation chest x-ray revealed right lung atelectasis probably secondary to mucous plugging with ET tube above nesha. Emergent bronchoscopy was performed with significant mucus plugging noted involving right sided airways. BL was performed with post-bronchoscopy chest x-ray revealing significant improvement in aeration of right middle lobe and right lower lobe with continued atelectasis/opacification of right upper lobe. Patient developed hypotension following intubation with sedation and was started on Levophed for pressor support after receiving a fluid bolus. Subjective: 04/25 CXR this morning shows resolution of RUL atelectasis. On PEEP 10 to facilitate lung expansion. Requesting bed for percussion therapy. Remains on levophed 6 mcg/min because hypotensive on sedation. 04/26 Patient is sedated with Versed/Fentanyl and intubated. Afebrile. 04/27 No acute events overnight. Sedated with Fentanyl and intubated, off versed. On Levophed 3 mics. Afebrile. s/p transfusion 1u PRBC yesterday- Hgb 8.4 this morning from 7.1 04/28 No acute events overnight. Off Levophed tolerated CPAP for several hrs yesterday. On fentanyl infusion for sedation. Objective Vital Signs Date Time Temp Pulse Resp B/P Pulse Ox O2 Delivery O2 Flow Rate FiO2 04/28/16 08:11 94 35 04/28/16 06:00 102 04/28/16 04:00 98.4 18 120/61 04/27/16 07:00 Mechanical Ventilator 04/24/16 15:43 15.00 Intake and Output 04/27/16 04/27/16 04/28/16 08:00 16:00 00:00 Intake Total 1115 ml 1107 ml 680 ml Output Total 1350 ml 1400 ml 1150 ml Balance -235 ml -293 ml -470 ml Result Diagram: 04/28/16 0600 04/28/16 0600 Other Results Laboratory Tests Test 04/28/16 06:00 White Blood Count 9.0 TH/MM3 Red Blood Count 3.02 MIL/MM3 Hemoglobin 8.4 GM/DL Hematocrit 25.5 % Mean Corpuscular Volume 84.5 FL Mean Corpuscular Hemoglobin 27.7 PG Mean Corpuscular Hemoglobin 32.8 % Concent Red Cell Distribution Width 17.9 % Platelet Count 107 TH/MM3 Mean Platelet Volume 11.2 FL Neutrophils (%) (Auto) 81.2 % Lymphocytes (%) (Auto) 10.9 % Monocytes (%) (Auto) 6.6 % Eosinophils (%) (Auto) 1.2 % Basophils (%) (Auto) 0.1 % Neutrophils # (Auto) 7.3 TH/MM3 Lymphocytes # (Auto) 1.0 TH/MM3 Monocytes # (Auto) 0.6 TH/MM3 Eosinophils # (Auto) 0.1 TH/MM3 Basophils # (Auto) 0.0 TH/MM3 CBC Comment DIFF FINAL Differential Comment Sodium Level 141 MEQ/L Potassium Level 3.3 MEQ/L Chloride Level 100 MEQ/L Carbon Dioxide Level 34.2 MEQ/L Anion Gap 7 MEQ/L Blood Urea Nitrogen 12 MG/DL Creatinine 0.58 MG/DL Estimat Glomerular Filtration 103 ML/MIN Rate Random Glucose 142 MG/DL Calcium Level 7.9 MG/DL Phosphorus Level 1.4 MG/DL Imaging Last Impressions Chest X-Ray 04/26/16 0600 Signed Impressions: Service Date/Time: Tuesday, April 26, 2016 05:00 - CONCLUSION: Mild interval improvement in opacity at the right lung base. Seb Mathur MD Head CT 04/19/16 0000 Signed Impressions: Service Date/Time: Tuesday, April 19, 2016 11:37 - CONCLUSION: Cortical atrophy and microvascular ischemic demyelinative change. No acute intracranial abnormality is seen. Reinier Archuleta MD Objective Remarks GENERAL: Elderly female who is orotracheally intubated, critically ill -appearing SKIN: Warm and dry. HEAD: Atraumatic. Normocephalic. EYES: Pupils equal and round. No scleral icterus. ENT: No nasal bleeding or discharge. NECK: Trachea midline. No JVD. CARDIOVASCULAR: Regular rate and rhythm. No murmurs rubs or gallops. RESPIRATORY: Scattered rhonchi. Synchronous that today with vent. Equal breath sounds bilaterally. GASTROINTESTINAL: Abdomen soft, non-tender, nondistended. 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 Head CT negative for bleed. Altered mental status possibly secondary to delirium. Seen by neurology Dr. Dixon. Daily sedation vacation. Patient was awake and alert following extubation reintubated 04/24 Cardiovascular: Septic shock (resolved) Coronary artery disease Place on Cardizem 30mg QID for rate control- monitor HR and BP keep MAP>65mmHg. On Plavix. Echo 01/31 EF 55-60% Pulmonary: Acute respiratory failure Right lung mucous plug Pneumonia COPD Extubated on 04/23 however reintubated on 04/24 due to mucous plugging with right lung collapse/ status post bronchoscopy with BALs following intubation on 04/24. Continue vent support keep sat >92% Vent bundle, DuoNeb every 4 hours and as needed. Pulmonary toilet. Daily CPAP trials as rito GI/liver: on Glucerna 1.5 @ 45 mL per hour per nutrition recommendations. FEN/renal: Monitor renal function, I/O's, electrolytes replacement per protocol. Will need K, Phos replacement today. Diurese with Bumex 1mg x1 ID: UTI- E.coli Healthcare associated pneumonia On Zosyn since 04/19. Monitor for signs of infections ( Fever, WBC) C-diff PCR negative 04/27 Microbiology: 04/19blood culture 2 setsno growth 1220urine Legionella and pneumococcal antigen negative 04/19urine culture positive for Escherichia coli sensitive to Zosyn. 03/2016influenza A and B antigen negative 04/22sputum cultureno growth to date 04/24sputum cultureGram stain with no organisms. Endocrine: Medium dose SSI with bedside glucose every 6 hours, On Levemir 5 units subcutaneous every 12 hours. Heme: Monitor CBC, s/p transfusion 1u PRBC 04/26 Guaiac stool for heme negative. Prophylaxis: Zantac for stress ulcer prophylaxis/SCDs/Lovenox 40 mg SQ daily. Lines: Right subclavian central line (04/19) Time spent on critical care excluding procedures 30 minutes Ino Ibarra MD Apr 28, 2016 09:22
--- NOTE | 2016-04-28 09:56 | RADRPT ---
EXAM DATE/TIME: 04/28/2016 09:28 [facility] COMPARISON: CHEST SINGLE AP, April 26, 2016, 5:00. INDICATIONS : Respiratory failure. MEDICAL HISTORY : None. SURGICAL HISTORY : None. ENCOUNTER: Initial ACUITY: 2 days PAIN SCORE: Non-responsive. LOCATION: Bilateral chest FINDINGS: The support devices remain in place. There is no pneumothorax. There are stable scattered infiltrates bilaterally. There has been no significant change compared to the prior exam. The heart size is stab le. No definite pleural effusions. The bony structures are stable. CONCLUSION: No significant interval change. Uri Valerio MD on April 28, 2016 at 9:53 Board Certified Radiologist. This report was verified electronically.
[2016-04-28 12:24] LABS: BLOOD GAS BASE EXCESS 7.5 mmol/L (-2-2); BLOOD GAS CARBOXYHEMOGLOBIN 1.5 % (0-4); BLOOD GAS HCO3 32 mmol/L (22-26); BLOOD GAS METHEMOGLOBIN 0.8 % (0-2); BLOOD GAS O2 HGB SATURATION 95 % (90-100); BLOOD GAS OXYGEN CONTENT 11.7 Vol % (12.0-20.0); BLOOD GAS PCO2 47 mmHg (38-42); BLOOD GAS PO2 83 mmHg (61-120); BLOOD GAS TOTAL HGB 8.7 G/DL (12.0-16.0); TEMP CORR TO 98.6
[2016-04-28 12:25] LABS: CRITICAL VALUE NO; DRAW SITE RT BRACHIAL; FIO2 40 %; NUMBER OF ARTERIAL PUNCTURES 1; OXYGEN DEVICE VENTILATOR; STAT NO; VENT SETTINGS CPAP 5/10PS
[2016-04-28] MEDS: ENOXAPARIN SODIUM 40 MG/0.4 ML SYRINGE SQ SCH (15:00)
[2016-04-28] MEDS ORDERED: oxyCODONE/ACETAMINOPHEN 5 MG/325 MG TAB PO ONE (15:00)
[2016-04-28] MEDS: DILTIAZEM HCL 30 MG TAB PO SCH ×2 (17:43→20:23)
[2016-04-28 21:32] LABS: BICARBONATE 36.1 MEQ/L (21.0-32.0); MAGNESIUM 1.8 MG/DL (1.5-2.5); POTASSIUM 3.5 MEQ/L (3.5-5.1)
[2016-04-28 21:50] LABS: CALCIUM-PROTEIN CORRECTED 8.3 MG/DL (8.5-10.1)
[2016-04-29] VITALS (16 sets, daily range): BP systolic 115–141; BP diastolic 54–77; PULSE 84–113; RESP 22; TEMP 97–98.4; O2SAT 92–98
[2016-04-29] MEDS: CHLORHEXIDINE GLUCONATE 2 % 1 PACK (2 CLOTHS) TOP SCH ×2 (01:12→19:37)
[2016-04-29] MEDS ORDERED: HALOPERIDOL LACTATE 5 MG/ML AMP IV ONE (02:30)
[2016-04-29 05:25] LABS: BASOPHIL % 0.4 % (0.0-2.0); EOSINOPHIL # 0.2 TH/MM3 (0-0.4); HEMATOCRIT 25.8 % (35.0-46.0); HEMO FLAGS DIFF FINAL; LYMPH % 10.5 % (9.0-44.0); LYMPHOCYTE # 0.9 TH/MM3 (1.0-4.8); MEAN CORPUSCULAR HEMOGLOBIN 27.7 PG (27.0-34.0); MEAN CORPUSCULAR HGB CONC 32.6 % (32.0-36.0); MONO % 7.4 % (0.0-8.0); NEUT % 79.7 % (16.0-70.0); PLATELET COUNT 153 TH/MM3 (150-450); RED BLOOD COUNT 3.03 MIL/MM3 (4.00-5.30); RED CELL DISTRIBUTION WIDTH 18.2 % (11.6-17.2); WHITE BLOOD COUNT 8.8 TH/MM3 (4.0-11.0)
[2016-04-29] MEDS: INSULIN ASPART SUPPLEMENTAL SCALE SQ SCH ×4 (05:26→23:30)
[2016-04-29] MEDS: PIPERACIL-TAZO 4.5 GM PREMIX 100 ML IV SCH ×4 (05:27→23:30)
[2016-04-29 05:48] LABS: BICARBONATE 33.9 MEQ/L (21.0-32.0); MAGNESIUM 1.8 MG/DL (1.5-2.5); POTASSIUM 4.3 MEQ/L (3.5-5.1)
[2016-04-29] MEDS: RESP: ALBUTEROL 2.5 MG/IPRATROPIUM 0.5 MG NEB (SCH) NEB ×3 (07:39→20:26)
--- NOTE | 2016-04-29 08:53 | HHI.CCPN ---
Subjective Remarks/Hospital Course 04/19: Patient is a 70-year-old female with past medical history of HTN, HLD, DM , dementia, COPD, CAD who presents the emergency department for altered mental status as a stroke alert. Reportedly per patient's care facility, [facility] and [facility], patient was awake and alert and conversing this morning. At approximately 11 AM her mental status decompensated, she became essentially completely unresponsive and EMS was called. Blood glucose was normal. Reportedly last seen normal at 11 AM. No focal deficit of the extremities, but patient was entirely nonverbal and given her acute change in mental status a stroke alert was called prehospital. Patient was altered and not able to participate with history or physical examination. She is anticoagulated on Plavix. Patient was evaluated by ER physician and in view of inability to protect airway and unresponsiveness was intubated and placed on mechanical ventilation. She received a 10 mg and succinylcholine 150 mg for intubation however following that has not required any sedation. Chest x-ray showed right upper lobe infiltrate, head CT was negative for bleed. Case was discussed by ER physician and neurology Dr. Dixon, patient was not deemed to be a candidate for TPA and there was a question whether this was a stroke or sepsis with pneumonia/UTI causing altered mental status. Patient was accepted for admission by critical care medicine service. When I evaluated the patient she was orally intubated on mechanical ventilation essentially unresponsive. History was obtained by discussion with ER physician and reviewing records. 04/20: Developed hypotension last night. Received 1.5 L fluid bolus followed by initiation of Levophed for pressor support after placement of right subclavian central line. Remains sedated, orally intubated on mechanical ventilation, arousable. Appears to not her head on commands. On Levophed 7 mics per minute. 04/21: Remains sedated, orally intubated on mechanical ventilation. Remains on Levophed for pressor support. Tolerating tube feeds. 04/22: Sedated, arousable, orally intubated on mechanical ventilation. Levophed for pressor support, being titrated down. Tolerating tube feeds. 04/23: Remains sedated, easily arousable, orally intubated on mechanical ventilation. Off Levophed. Tolerating tube feeds. Failed C Pap trials yesterday. 04/24: She was extubated yesterday and wasn't nasal cannula 2 L/m. She was transferred to hospitalist service however this evening she decompensated with increasing O2 requirement. Chest x-ray done this evening revealed atelectasis involving right lung with volume loss. Patient developed worsening respiratory distress spike 100% nonrebreather facemask and was emergently intubated and placed on mechanical ventilation. Post intubation chest x-ray revealed right lung atelectasis probably secondary to mucous plugging with ET tube above nesha. Emergent bronchoscopy was performed with significant mucus plugging noted involving right sided airways. BL was performed with post-bronchoscopy chest x-ray revealing significant improvement in aeration of right middle lobe and right lower lobe with continued atelectasis/opacification of right upper lobe. Patient developed hypotension following intubation with sedation and was started on Levophed for pressor support after receiving a fluid bolus. Subjective: 04/25 CXR this morning shows resolution of RUL atelectasis. On PEEP 10 to facilitate lung expansion. Requesting bed for percussion therapy. Remains on levophed 6 mcg/min because hypotensive on sedation. 04/26 Patient is sedated with Versed/Fentanyl and intubated. Afebrile. 04/27 No acute events overnight. Sedated with Fentanyl and intubated, off versed. On Levophed 3 mics. Afebrile. s/p transfusion 1u PRBC yesterday- Hgb 8.4 this morning from 7.1 04/28 No acute events overnight. Off Levophed tolerated CPAP for several hrs yesterday. On fentanyl infusion for sedation. 04/29 Patient was extubated yesterday. Awake and alert. On 3L oxygen with good sats. Afebrile. Objective Vital Signs Date Time Temp Pulse Resp B/P Pulse Ox O2 Delivery O2 Flow Rate FiO2 04/29/16 06:00 98 04/29/16 04:00 98.4 140/60 98 04/29/16 03:32 Nasal Cannula 3.00 04/29/16 01:14 40 04/28/16 16:00 23 Intake and Output 04/28/16 04/28/16 04/29/16 08:00 16:00 00:00 Intake Total 542 ml 495 ml 356 ml Output Total 1750 ml 1100 ml 550 ml Balance -1208 ml -605 ml -194 ml Result Diagram: 04/29/16 0349 04/29/16 0349 Other Results Laboratory Tests Test 04/28/16 04/28/16 04/29/16 12:10 19:55 03:49 Blood Gas Puncture Site RT BRACHIAL Blood Gas Patient Temperature 98.6 Blood Gas HCO3 32 mmol/L Blood Gas Base Excess 7.5 mmol/L Blood Gas Oxygen Saturation 95 % Arterial Blood pH 7.44 Arterial Blood Partial 47 mmHg Pressure CO2 Arterial Blood Partial 83 mmHg Pressure O2 Arterial Blood Oxygen Content 11.7 Vol % Arterial Blood 1.5 % Carboxyhemoglobin Arterial Blood Methemoglobin 0.8 % Blood Gas Hemoglobin 8.7 G/DL Oxygen Delivery Device VENTILATOR Blood Gas Ventilator Setting CPAP 5/10PS Blood Gas Inspired Oxygen 40 % Sodium Level 138 MEQ/L 142 MEQ/L Potassium Level 3.5 MEQ/L 4.3 MEQ/L Chloride Level 98 MEQ/L 102 MEQ/L Carbon Dioxide Level 36.1 MEQ/L 33.9 MEQ/L Anion Gap 4 MEQ/L 6 MEQ/L Blood Urea Nitrogen 10 MG/DL 8 MG/DL Creatinine 0.50 MG/DL 0.43 MG/DL Estimat Glomerular Filtration 122 ML/MIN 146 ML/MIN Rate Random Glucose 113 MG/DL 103 MG/DL Calcium Level 7.3 MG/DL 7.9 MG/DL Protein Corrected Calcium 8.3 MG/DL Phosphorus Level 4.6 MG/DL 3.9 MG/DL Magnesium Level 1.8 MG/DL 1.8 MG/DL Total Protein 5.3 GM/DL White Blood Count 8.8 TH/MM3 Red Blood Count 3.03 MIL/MM3 Hemoglobin 8.4 GM/DL Hematocrit 25.8 % Mean Corpuscular Volume 85.0 FL Mean Corpuscular Hemoglobin 27.7 PG Mean Corpuscular Hemoglobin 32.6 % Concent Red Cell Distribution Width 18.2 % Platelet Count 153 TH/MM3 Mean Platelet Volume 10.9 FL Neutrophils (%) (Auto) 79.7 % Lymphocytes (%) (Auto) 10.5 % Monocytes (%) (Auto) 7.4 % Eosinophils (%) (Auto) 2.0 % Basophils (%) (Auto) 0.4 % Neutrophils # (Auto) 7.0 TH/MM3 Lymphocytes # (Auto) 0.9 TH/MM3 Monocytes # (Auto) 0.7 TH/MM3 Eosinophils # (Auto) 0.2 TH/MM3 Basophils # (Auto) 0.0 TH/MM3 CBC Comment DIFF FINAL Differential Comment Imaging Last Impressions Chest X-Ray 04/28/16 0000 Signed Impressions: Service Date/Time: March 09:28 - CONCLUSION: No significant interval change. Uri Valerio MD Head CT 04/19/16 0000 Signed Impressions: Service Date/Time: Tuesday, April 19, 2016 11:37 - CONCLUSION: Cortical atrophy and microvascular ischemic demyelinative change. No acute intracranial abnormality is seen. Reinier Archuleta MD Objective Remarks GENERAL: Elderly female lying in bed in NAD. SKIN: Warm and dry. HEAD: Atraumatic. Normocephalic. EYES: Pupils equal and round. No scleral icterus. ENT: No nasal bleeding or discharge. NECK: Trachea midline. No JVD. CARDIOVASCULAR: Regular rate and rhythm. No murmurs rubs or gallops. RESPIRATORY: Scattered rhonchi. Synchronous that today with vent. Equal breath sounds bilaterally. GASTROINTESTINAL: Abdomen soft, non-tender, nondistended. 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 Head CT negative for bleed. Seen by neurology Dr. Dixon. Cardiovascular: Septic shock (resolved) Coronary artery disease on Cardizem 30mg QID for rate control- monitor HR and BP keep MAP>65mmHg. On Plavix. Echo 01/31 EF 55-60% Pulmonary: Acute respiratory failure Right lung mucous plug Pneumonia COPD Extubated on 04/23 however reintubated on 04/24 extubated 04/28 Continue with oxygen keep sat >92% DuoNeb every 4 hours and as needed. Pulmonary toilet. GI/liver: on PO diet FEN/renal: Monitor renal function, I/O's, electrolytes replacement per protocol. ID: UTI- E.coli Healthcare associated pneumonia On Zosyn since 04/19. d/c after today's dose. Monitor for signs of infections ( Fever, WBC) C-diff PCR negative 04/27 Microbiology: 04/19blood culture 2 setsno growth 1220urine Legionella and pneumococcal antigen negative 04/19urine culture positive for Escherichia coli sensitive to Zosyn. 03/2016influenza A and B antigen negative 04/22sputum cultureno growth to date 04/24sputum cultureGram stain with no organisms. Endocrine: Medium dose SSI with bedside glucose every 6 hours, Heme: Monitor CBC, s/p transfusion 1u PRBC 04/26 Guaiac stool for heme negative. Prophylaxis: Zantac for stress ulcer prophylaxis/SCDs/Lovenox 40 mg SQ daily. Lines: Right subclavian central line (04/19) d/c central line and place peripheral IV's. PT eval and treat Will sign off and transfer care to [facility] Level 3 Ino Ibarra MD Apr 29, 2016 08:53
[2016-04-29] MEDS: DILTIAZEM HCL 30 MG TAB PO SCH ×4 (09:02→20:42)
[2016-04-29] MEDS: RANITIDINE HCL SYRUP 150 MG/10 ML UDC TUBE SCH (09:02)
[2016-04-29] MEDS: ESCITALOPRAM OXALATE 10 MG TAB PO SCH (09:02)
[2016-04-29] MEDS: SODIUM CHLORIDE 0.9% FLUSH 5 ML FLUSH IVF SCH ×2 (09:04→20:42)
[2016-04-29] MEDS: ENOXAPARIN SODIUM 40 MG/0.4 ML SYRINGE SQ SCH (15:58)
[2016-04-29] MEDS: CHLORHEXIDINE 0.12% (ORAL KIT) 15 ML CUP MT SCH (20:00)
[2016-04-30] VITALS (16 sets, daily range): BP systolic 123–147; BP diastolic 63–109; PULSE 87–115; RESP 22–30; TEMP 98–98.8; O2SAT 92–97
[2016-04-30] MEDS: INSULIN ASPART SUPPLEMENTAL SCALE SQ SCH ×4 (05:47→23:07)
[2016-04-30] MEDS: PIPERACIL-TAZO 4.5 GM PREMIX 100 ML IV SCH ×4 (05:48→23:08)
[2016-04-30 06:48] LABS: BICARBONATE 31.6 MEQ/L (21.0-32.0); POTASSIUM 3.7 MEQ/L (3.5-5.1)
[2016-04-30 07:35] LABS: AUTOMATED NEUTROPHIL # 6.8 TH/MM3 (1.8-7.7); BASOPHIL # 0.1 TH/MM3 (0-0.2); BASOPHIL % 1.1 % (0.0-2.0); EOSINOPHIL # 0.2 TH/MM3 (0-0.4); HEMATOCRIT 25.5 % (35.0-46.0); HEMO FLAGS DIFF FINAL; LYMPH % 10.1 % (9.0-44.0); LYMPHOCYTE # 0.9 TH/MM3 (1.0-4.8); MEAN CORPUSCULAR HEMOGLOBIN 27.5 PG (27.0-34.0); MEAN CORPUSCULAR HGB CONC 32.3 % (32.0-36.0); MONO % 7.4 % (0.0-8.0); NEUT % 79.4 % (16.0-70.0); PLATELET COUNT 180 TH/MM3 (150-450); WHITE BLOOD COUNT 8.5 TH/MM3 (4.0-11.0)
--- NOTE | 2016-04-30 07:47 | HHI.PR ---
Subjective Remarks Very weak voice, fels weak, falling asleep easily. Sounds congested and is wheezing. Coughing, not forceful cough, as she is very weak. No n/v/d/c. Objective Vitals Vital Signs Date Time Temp Pulse Resp B/P Pulse Ox O2 Delivery O2 Flow Rate FiO2 04/30/16 06:00 112 04/30/16 04:00 98.8 103 123/80 96 04/30/16 04:00 103 04/30/16 02:35 97 40 04/30/16 02:00 87 04/30/16 00:18 96 40 04/30/16 00:00 95 04/30/16 00:00 98.6 95 130/69 95 04/29/16 22:00 108 04/29/16 21:00 96 40 04/29/16 20:26 96 Nasal Cannula 4.00 04/29/16 20:00 113 04/29/16 20:00 97.9 113 124/77 95 04/29/16 18:00 105 04/29/16 16:00 100 04/29/16 16:00 97.8 100 22 124/58 92 04/29/16 14:00 96 04/29/16 12:00 98.0 107 22 141/62 98 04/29/16 12:00 107 04/29/16 10:00 105 04/29/16 08:00 97.8 95 22 116/54 98 04/29/16 08:00 100 I/O 04/29/16 04/29/16 04/29/16 04/30/16 04/30/16 04/30/16 07:00 15:00 23:00 07:00 15:00 23:00 Intake Total 317 ml 630 ml 254 ml 543 ml Output Total 1250 ml 1000 ml 650 ml 600 ml Balance -933 ml -370 ml -396 ml -57 ml Intake Oral 350 ml 240 ml IV Total 317 ml 280 ml 254 ml 303 ml Output Urine Total 1250 ml 1000 ml 650 ml 600 ml Stool Total 0 ml # Voids 1 # Bowel Movements 1 Result Diagram: 04/30/16 0543 04/30/16 0543 Imaging Last Impressions Chest X-Ray 04/28/16 0000 Signed Impressions: Service Date/Time: March 09:28 - CONCLUSION: No significant interval change. Uri Valerio MD Head CT 04/19/16 0000 Signed Impressions: Service Date/Time: Tuesday, April 19, 2016 11:37 - CONCLUSION: Cortical atrophy and microvascular ischemic demyelinative change. No acute intracranial abnormality is seen. Reinier Archuleta MD Objective Remarks GENERAL: Elderly female lying in bed in NAD. SKIN: Warm and dry. HEAD: Atraumatic. Normocephalic. EYES: Pupils equal and round. No scleral icterus. ENT: No nasal bleeding or discharge. NECK: Trachea midline. No JVD. CARDIOVASCULAR: Regular rate and rhythm. No murmurs rubs or gallops. RESPIRATORY: Scattered rhonchi. Synchronous that today with vent. Equal breath sounds bilaterally. GASTROINTESTINAL: Abdomen soft, non-tender, nondistended. 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 NEUROLOGICAL: Awake and laert Date of Insertion: Apr 19, 2016 Line: Central Venous Catheter Location: Subclavian A/P Problem List: (1) Sepsis ICD Code: A41.9 Status: Acute (2) Diabetes ICD Code: E11.9 Status: Chronic (3) UTI (urinary tract infection) ICD Code: N39.0 Status: Acute (4) Hypokalemia ICD Code: E87.6 Status: Acute (5) Pneumonia ICD Code: J18.9 Status: Acute (6) Metabolic encephalopathy ICD Code: G93.41 Status: Acute (7) Acute respiratory failure ICD Code: J96.00 Status: Acute Assessment and Plan 70 year-old female with: Resp Insuff - extubated 04/28 s/p Septic shock Pneumonia E coli UTI Anemia Dementia COPD Coronary artery disease Diabetes mellitus Hypertension Hyperlipidemia History of CHF Dementia Dementia Awake and alert. Head CT negative for bleed. Seen by neurology Dr. Dixon. Cardiovascular: Septic shock (resolved) Coronary artery disease on Cardizem 30mg QID for rate control- monitor HR and BP keep MAP>65mmHg. On Plavix. Echo 01/31 EF 55-60% Pulmonary: Acute respiratory failure Right lung mucous plug Pneumonia COPD Extubated on 04/23 however reintubated on 04/24 extubated 04/28 Continue with oxygen keep sat >92% DuoNeb every 4 hours and as needed and q6 hrs. Start solumedrol. taper nebs and steroid as tolerated. Add mucomyst. Add IS and acapella. Suction as need, continue pulmonary toilet. GI/liver: on PO diet FEN/renal: Monitor renal function, I/O's, electrolytes replacement per protocol. ID: UTI- E.coli Healthcare associated pneumonia On Zosyn since 04/19. d/c after today's dose. Monitor for signs of infections ( Fever, WBC) C-diff PCR negative 04/27 Microbiology: 04/19blood culture 2 setsno growth 1220urine Legionella and pneumococcal antigen negative 04/19urine culture positive for Escherichia coli sensitive to Zosyn. 03/2016influenza A and B antigen negative 04/22sputum cultureno growth to date 04/24sputum cultureGram stain with no organisms. Endocrine: Medium dose SSI with bedside glucose every 6 hours, Heme: Monitor CBC, s/p transfusion 1u PRBC 04/26 Guaiac stool for heme negative. Prophylaxis: Zantac for stress ulcer prophylaxis/SCDs/Lovenox 40 mg SQ daily. Lines: Right subclavian central line (04/19) d/c central line and place peripheral IV's. PT eval and treat Problem Qualifiers (1) Pneumonia: Qualified Code: J18.1 - Pneumonia of right upper lobe due to infectious organism (2) Acute respiratory failure: Qualified Code: J96.00 - Acute respiratory failure, unspecified whether with hypoxia or hypercapnia Jodi Freitas MD Apr 30, 2016 07:47
[2016-04-30] MEDS: RESP: ALBUTEROL 2.5 MG/IPRATROPIUM 0.5 MG NEB (SCH) NEB ×3 (07:52→20:19)
[2016-04-30] MEDS: CHLORHEXIDINE 0.12% (ORAL KIT) 15 ML CUP MT SCH ×2 (08:00→20:00)
[2016-04-30] MEDS: SODIUM CHLORIDE 0.9% FLUSH 5 ML FLUSH IVF SCH ×2 (09:20→21:37)
[2016-04-30] MEDS: DILTIAZEM HCL 30 MG TAB PO SCH ×4 (09:20→21:36)
[2016-04-30] MEDS: RANITIDINE HCL SYRUP 150 MG/10 ML UDC TUBE SCH (09:20)
[2016-04-30] MEDS: ESCITALOPRAM OXALATE 10 MG TAB PO SCH (09:20)
[2016-04-30] MEDS ORDERED: methylPREDNISolone SOD SUCC 125 MG/2 ML VIAL IV PUSH ONE (11:00)
[2016-04-30] MEDS ORDERED: CALCIUM CARBONATE 500 MG CHEWABLE TAB CHEW ONE (11:00)
--- NOTE | 2016-04-30 11:34 | RADRPT ---
EXAM DATE/TIME: 04/30/2016 10:49 [place] COMPARISON: No previous studies available for comparison. INDICATIONS : Shortness of breath. MEDICAL HISTORY : None. SURGICAL HISTORY : None. ENCOUNTER: Initial ACUITY: 2 days PAIN SCORE: Non-responsive. LOCATION: Bilateral chest FINDINGS: There is interstitial prominence left effusion and patchy nodular infiltrates bilaterally again noted . Cardiomegaly. CONCLUSION: No significant change has occurred. Jose Angel Redmond MD on April 30, 2016 at 11:32 Board Certified Radiologist. This report was verified electronically.
[2016-04-30] MEDS ORDERED: RESP: ACETYLCYSTEINE 20% 30 ML NEB NEB SCH (14:00)
[2016-04-30] MEDS: LEVOFLOXACIN 500 MG PREMIX INJ 100 ML IV SCH (15:50)
[2016-04-30] MEDS: ENOXAPARIN SODIUM 40 MG/0.4 ML SYRINGE SQ SCH (15:51)
[2016-04-30] MEDS ORDERED: methylPREDNISolone SOD SUCC 40 MG/1 ML VIAL IV PUSH SCH (18:00)
[2016-04-30] MEDS: methylPREDNISolone SOD SUCC 40 MG/1 ML VIAL IV PUSH SCH (21:36)
[2016-05-01] VITALS (16 sets, daily range): BP systolic 119–170; BP diastolic 56–93; PULSE 74–105; RESP 11–24; TEMP 97.6–98.3; O2SAT 94–100
[2016-05-01] MEDS: CHLORHEXIDINE GLUCONATE 2 % 1 PACK (2 CLOTHS) TOP SCH (03:59)
[2016-05-01] MEDS: PIPERACIL-TAZO 4.5 GM PREMIX 100 ML IV SCH ×3 (04:05→18:48)
[2016-05-01] MEDS: methylPREDNISolone SOD SUCC 40 MG/1 ML VIAL IV PUSH SCH (04:05)
[2016-05-01] MEDS: INSULIN ASPART SUPPLEMENTAL SCALE SQ SCH ×3 (04:05→18:48)
--- NOTE | 2016-05-01 04:26 | MB ---
cc: YRN SWANN MD, JOHN DATE OF CONSULTATION: 04/30/2016 REASON FOR CONSULTATION: Respiratory failure and sepsis. HISTORY OF PRESENT ILLNESS: This is a 70-year-old lady who has a history of hypertension, diabetes, hyperlipidemia and COPD, as well as dementia, was admitted through the emergency room with altered mental status and possible stroke. The patient was from the longterm at [facility] and upon arrival was able to converse and apparently became unresponsive after being brought in by EMS. She had to be intubated for acute respiratory failure, placed on ventilator support, and following intubation a CT scan of the head was done which was unremarkable but chest x-ray showed right lung infiltrate. She has been treated for pneumonia and sepsis as well as UTI with altered mental status. Over the next three days the patient was weaned off the ventilator and has now been extubated and placed on oxygen via nasal cannula. She is responsive, cooperative and does answer some questions. She denies any chest pain but does have a cough with mild wheezing. She has had no nausea or vomiting, no fever or chills. PAST HISTORY The patient's past history has included CHF and history of diabetes as well of hypertension, gastroesophageal reflux disease, and history of peripheral neuropathy. She has COPD with chronic bronchitis. 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 HABITS The patient smoked for 40 years about a pack a day and has quit. No significant alcohol use. ALLERGIES Aspirin. MEDICATIONS: 1. Combivent one puff q.i.d. 2. Lactulose 15 cc hs. 3. Carafate one gram ac and hs. 4. Prednisone 20 milligrams daily. 5. Protonix 40 milligrams a day. 6. Potassium 20 milliequivalents daily. 7. Lasix 20 milligrams a day. 8. Coreg 3.125 milligrams b.i.d. 9. Lisinopril 2.5 milligrams b.i.d. 10. Omeprazole 40 milligrams a day. 11. Glipizide 5 milligrams daily. 12. Humalog insulin per sliding scale. 13. Lantus insulin 15 units subcu a day. 14. Plavix 75 milligrams a day. 15. Lexapro 10 milligrams hs. FAMILY HISTORY: Noncontributory. REVIEW OF SYSTEMS: The patient has lost weight. She has some leg swelling. She has weakness of the right leg as well with arthritis and neuropathy. Denies any headaches, blackouts. No GI symptoms but has some urinary frequency. She has depression and anxiety. The remainder of review of systems as in history of present illness. PHYSICAL EXAMINATION This averagely built elderly white female is sitting upright and is pale and mildly dyspneic. VITAL SIGNS: Blood pressure 130/70, pulse 86, respirations 22, temperature 98.2. HEENT: Head normocephalic. Pupils are reactive and equal. Tongue is dry. Throat is injected. Nasal mucosa erythematous. Neck: Supple. No bruits or thyroid enlargement, no lymphadenopathy. Chest: Equal movements with diminished breath sounds at the bases with occasional wheezes bilaterally and few crackles of the lung bases. Heart: Heart sounds irregular S1-S2. No murmur. No S3 gallop. Abdomen: The abdomen is soft, protuberant. No masses, organomegaly or tenderness. Bowel sounds are active. Extremities: Amputated left leg above the knee and right leg has muscle wasting with diminished pulses and mild peripheral edema. Reflexes 1+. Cranial nerves grossly intact. Rectal: Exam is deferred. Skin: No lesions. IMPRESSION 1. Respiratory failure resolved. 2. CHF and ASHD. 3. Diabetes mellitus type 2 4. Chronic obstructive pulmonary disease with chronic bronchitis. 5. Probable basilar pneumonia resolving. 6. Hypertension and hyperlipidemia. 7. History of dementia. 8. Sepsis, resolved. PLAN The patient will be maintained on 3 liters of oxygen nasal cannula, nebulized albuterol/Atrovent solution q.i.d. We will also continue with antibiotic coverage as has been ordered. A follow up chest x-ray will be done in the a.m. BiPAP 12 x 5 cm to be used at night and bedside pulmonary function study will be obtained when she is out of the ICU, incentive spirometry q.i.d. and Mucomyst solution that is being used will be discontinued for now. The patient has been placed on Lovenox which we will continue and Solu-Medrol will be tapered down to 40 mg every 8 hours. Mucomyst was discontinued. Thank you Dr. Swann, for this consultation. MD SARIKA Smith/CRISTÓBAL /9:00 PM /3:42 AM
[2016-05-01 06:48] LABS: MAGNESIUM 1.7 MG/DL (1.5-2.5); POTASSIUM 3.5 MEQ/L (3.5-5.1)
[2016-05-01 07:14] LABS: AUTOMATED NEUTROPHIL # 4.9 TH/MM3 (1.8-7.7); BASOPHIL % 0.1 % (0.0-2.0); HEMATOCRIT 26.6 % (35.0-46.0); HEMO FLAGS DIFF FINAL; LYMPH % 6.5 % (9.0-44.0); LYMPHOCYTE # 0.4 TH/MM3 (1.0-4.8); MEAN CELL VOLUME 85.2 FL (80.0-100.0); MEAN CORPUSCULAR HEMOGLOBIN 27.7 PG (27.0-34.0); MEAN CORPUSCULAR HGB CONC 32.5 % (32.0-36.0); MONO % 2.1 % (0.0-8.0); NEUT % 91.3 % (16.0-70.0); PLATELET COUNT 197 TH/MM3 (150-450); RED BLOOD COUNT 3.12 MIL/MM3 (4.00-5.30); WHITE BLOOD COUNT 5.4 TH/MM3 (4.0-11.0)
[2016-05-01] MEDS: CHLORHEXIDINE 0.12% (ORAL KIT) 15 ML CUP MT SCH ×2 (08:00→20:48)
[2016-05-01] MEDS: RESP: ALBUTEROL 2.5 MG/IPRATROPIUM 0.5 MG NEB (SCH) NEB ×3 (08:03→20:24)
--- NOTE | 2016-05-01 08:29 | HHI.PR ---
Subjective Remarks Patient in bed, she is more awake and alert. Has a weak voice. + cough, chest congestion, wheezing on/off. . Did use Bipap overnight, refusing ABG today morning. Patient needs BiPAP overnight. Denies chest pain, n/v/d/c. No fever or chills. Objective Vitals Vital Signs Date Time Temp Pulse Resp B/P Pulse Ox O2 Delivery O2 Flow Rate FiO2 05/01/16 08:03 98 Nasal Cannula 2.00 05/01/16 06:00 74 05/01/16 04:00 97.6 81 23 170/74 97 05/01/16 04:00 81 05/01/16 03:45 96 40 05/01/16 02:00 74 05/01/16 00:38 96 40 05/01/16 00:00 98.2 84 11 132/93 94 05/01/16 00:00 84 04/30/16 22:00 105 04/30/16 20:20 94 Nasal Cannula 3.00 04/30/16 20:00 102 147/64 94 04/30/16 20:00 102 04/30/16 18:00 115 04/30/16 16:00 102 04/30/16 16:00 98.0 102 22 134/109 92 04/30/16 14:00 106 04/30/16 12:00 102 04/30/16 12:00 98.3 102 28 141/63 94 04/30/16 10:00 96 I/O 04/30/16 04/30/16 04/30/16 05/01/16 05/01/16 05/01/16 07:00 15:00 23:00 07:00 15:00 23:00 Intake Total 543 ml 551 ml 252 ml 375 ml Output Total 600 ml 1400 ml 400 ml 250 ml Balance -57 ml -849 ml -148 ml 125 ml Intake Oral 240 ml 250 ml 120 ml IV Total 303 ml 301 ml 252 ml 255 ml Output Urine Total 600 ml 1400 ml 400 ml 250 ml # Bowel Movements 1 Result Diagram: 05/01/16 0404 05/01/16 0404 Imaging Last Impressions Chest X-Ray 04/30/16 0000 Signed Impressions: Service Date/Time: Saturday, April 30, 2016 10:49 - CONCLUSION: No significant change has occurred. Jose Angel Redmond MD Head CT 04/19/16 0000 Signed Impressions: Service Date/Time: Tuesday, April 19, 2016 11:37 - CONCLUSION: Cortical atrophy and microvascular ischemic demyelinative change. No acute intracranial abnormality is seen. Reinier Archuleta MD Objective Remarks GENERAL: Elderly female lying in bed in NAD. SKIN: Warm and dry. HEAD: Atraumatic. Normocephalic. EYES: Pupils equal and round. No scleral icterus. ENT: No nasal bleeding or discharge. NECK: Trachea midline. No JVD. CARDIOVASCULAR: Regular rate and rhythm. No murmurs rubs or gallops. RESPIRATORY: Scattered rhonchi. Synchronous that today with vent. Equal breath sounds bilaterally. GASTROINTESTINAL: Abdomen soft, non-tender, nondistended. 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 NEUROLOGICAL: Awake and laert Date of Insertion: Apr 19, 2016 Line: Central Venous Catheter Location: Subclavian A/P Problem List: (1) Sepsis ICD Code: A41.9 Status: Acute (2) Diabetes ICD Code: E11.9 Status: Chronic (3) UTI (urinary tract infection) ICD Code: N39.0 Status: Acute (4) Hypokalemia ICD Code: E87.6 Status: Acute (5) Pneumonia ICD Code: J18.9 Status: Acute (6) Metabolic encephalopathy ICD Code: G93.41 Status: Acute (7) Acute respiratory failure ICD Code: J96.00 Status: Acute Assessment and Plan 70 year-old female with: Resp Insuff - extubated 04/28 s/p Septic shock Pneumonia E coli UTI Anemia Dementia COPD Coronary artery disease Diabetes mellitus Hypertension Hyperlipidemia History of CHF Dementia Dementia Awake and alert. Head CT negative for bleed. Seen by neurology Dr. Dixon. Cardiovascular: Septic shock (resolved) Coronary artery disease on Cardizem 30mg QID for rate control- monitor HR and BP keep MAP>65mmHg. On Plavix. Echo 01/31 EF 55-60% Pulmonary: Acute respiratory failure Right lung mucous plug Pneumonia COPD Extubated on 04/23 however reintubated on 04/24 extubated 04/28 Continue with oxygen keep sat >92% DuoNeb every 4 hours and as needed and q6 hrs. Start solumedrol. taper nebs and steroid as tolerated. Add mucomyst. Add IS and acapella. Suction as need, continue pulmonary toilet. GI/liver: on PO diet FEN/renal: Monitor renal function, I/O's, electrolytes replacement per protocol. ID: UTI- E.coli Healthcare associated pneumonia On Zosyn since 04/19. d/c after today's dose. Monitor for signs of infections ( Fever, WBC) C-diff PCR negative 04/27 Microbiology: 04/19blood culture 2 setsno growth 1220urine Legionella and pneumococcal antigen negative 04/19urine culture positive for Escherichia coli sensitive to Zosyn. 03/2016influenza A and B antigen negative 04/22sputum cultureno growth to date 04/24sputum cultureGram stain with no organisms. Endocrine: Medium dose SSI with bedside glucose every 6 hours, Heme: Monitor CBC, s/p transfusion 1u PRBC 04/26 Guaiac stool for heme negative. Prophylaxis: Zantac for stress ulcer prophylaxis/SCDs/Lovenox 40 mg SQ daily. Lines: Right subclavian central line (04/19) d/c central line and place peripheral IV's. PT eval and treat Problem Qualifiers (1) Pneumonia: Qualified Code: J18.1 - Pneumonia of right upper lobe due to infectious organism (2) Acute respiratory failure: Qualified Code: J96.00 - Acute respiratory failure, unspecified whether with hypoxia or hypercapnia Jodi Freitas MD May 01, 2016 08:29
[2016-05-01] MEDS: SODIUM CHLORIDE 0.9% FLUSH 5 ML FLUSH IVF SCH ×2 (08:30→20:48)
[2016-05-01] MEDS: DILTIAZEM HCL 30 MG TAB PO SCH ×4 (08:30→20:48)
[2016-05-01] MEDS: RANITIDINE HCL SYRUP 150 MG/10 ML UDC TUBE SCH (08:30)
[2016-05-01] MEDS: ESCITALOPRAM OXALATE 10 MG TAB PO SCH (08:30)
--- NOTE | 2016-05-01 13:56 | HHI.PR ---
Subjective Remarks Feels better. On 2 L O2. Good output . C/O Leg pains. Objective Vital Signs Date Time Temp Pulse Resp B/P Pulse Ox O2 Delivery O2 Flow Rate FiO2 05/01/16 08:03 98 Nasal Cannula 2.00 05/01/16 06:00 74 05/01/16 04:00 97.6 81 23 170/74 97 05/01/16 04:00 81 05/01/16 03:45 96 40 05/01/16 02:00 74 05/01/16 00:38 96 40 05/01/16 00:00 98.2 84 11 132/93 94 05/01/16 00:00 84 04/30/16 22:00 105 04/30/16 20:20 94 Nasal Cannula 3.00 04/30/16 20:00 102 147/64 94 04/30/16 20:00 102 04/30/16 18:00 115 04/30/16 16:00 102 04/30/16 16:00 98.0 102 22 134/109 92 04/30/16 14:00 106 I/O 04/30/16 04/30/16 04/30/16 05/01/16 05/01/16 05/01/16 07:00 15:00 23:00 07:00 15:00 23:00 Intake Total 543 ml 551 ml 252 ml 375 ml Output Total 600 ml 1400 ml 400 ml 250 ml Balance -57 ml -849 ml -148 ml 125 ml Intake Oral 240 ml 250 ml 120 ml IV Total 303 ml 301 ml 252 ml 255 ml Output Urine Total 600 ml 1400 ml 400 ml 250 ml # Bowel Movements 1 Result Diagram: 05/01/164 05/01/16 0404 Objective Remarks This averagely built elderly white female is sitting upright and in no distress HEENT: Head normocephalic. Pupils are reactive and equal. Tongue is dry. Throat is dry. Nasal mucosa clear. Neck: Supple. No bruits or thyroid enlargement, no lymphadenopathy. Chest: Equal movements with diminished breath sounds at the bases with occasional wheezes bilaterally and few crackles of the lung bases. Heart: Heart sounds irregular S1-S2. No murmur. No S3 gallop. Abdomen: The abdomen is soft, protuberant. No masses, organomegaly or tenderness. Bowel sounds are active. Extremities: Amputated left leg above the knee and right leg has muscle wasting with diminished pulses and mild peripheral edema. Reflexes 1+. Cranial nerves grossly intact. Rectal: Exam is deferred. Skin: No lesions. Assessment and Plan Assessment and Plan IMPRESSION 1. Respiratory failure resolved. 2. CHF and ASHD. 3. Diabetes mellitus type 2 4. Chronic obstructive pulmonary disease with chronic bronchitis. 5. Probable basilar pneumonia resolving. 6. Hypertension and hyperlipidemia. 7. History of dementia. 8. Sepsis, resolved. Plan : 1. Wean O2 to keep sat >92. 2. D/C solumedrol. 3. Add prednisone 20 mg daily. 4. Nebs qid , duoneb. 5. Cont Antibiotics. 6. Transfer to the [facility]. Mihir Lopez MD May 01, 2016 13:56
[2016-05-01] MEDS: LEVOFLOXACIN 500 MG PREMIX INJ 100 ML IV SCH (14:07)
[2016-05-01] MEDS: ENOXAPARIN SODIUM 40 MG/0.4 ML SYRINGE SQ SCH (14:09)
[2016-05-02] VITALS (17 sets, daily range): BP systolic 124–160; BP diastolic 61–95; PULSE 81–107; RESP 20–22; TEMP 98.2–99.3; O2SAT 95–99
[2016-05-02] MEDS: PIPERACIL-TAZO 4.5 GM PREMIX 100 ML IV SCH ×4 (00:50→17:23)
[2016-05-02] MEDS: CHLORHEXIDINE GLUCONATE 2 % 1 PACK (2 CLOTHS) TOP SCH (04:00)
[2016-05-02] MEDS: INSULIN ASPART SUPPLEMENTAL SCALE SQ SCH ×4 (05:47→17:24)
[2016-05-02 06:25] LABS: AUTOMATED NEUTROPHIL # 8.4 TH/MM3 (1.8-7.7); BASOPHIL % 0.2 % (0.0-2.0); EOSINOPHIL % 0.1 % (0.0-4.0); HEMATOCRIT 27.9 % (35.0-46.0); HEMO FLAGS DIFF FINAL; LYMPH % 7.9 % (9.0-44.0); LYMPHOCYTE # 0.8 TH/MM3 (1.0-4.8); MEAN CELL VOLUME 85.3 FL (80.0-100.0); MEAN CORPUSCULAR HEMOGLOBIN 27.6 PG (27.0-34.0); MEAN CORPUSCULAR HGB CONC 32.4 % (32.0-36.0); MONO % 9.3 % (0.0-8.0); NEUT % 82.5 % (16.0-70.0); PLATELET COUNT 255 TH/MM3 (150-450); RED BLOOD COUNT 3.27 MIL/MM3 (4.00-5.30); RED CELL DISTRIBUTION WIDTH 17.9 % (11.6-17.2); WHITE BLOOD COUNT 10.2 TH/MM3 (4.0-11.0)
[2016-05-02 06:54] LABS: BICARBONATE 36.2 MEQ/L (21.0-32.0)
[2016-05-02 06:59] LABS: POTASSIUM 2.6 MEQ/L (3.5-5.1)
[2016-05-02] MEDS: RANITIDINE HCL SYRUP 150 MG/10 ML UDC TUBE SCH (07:44)
[2016-05-02] MEDS: DILTIAZEM HCL 30 MG TAB PO SCH ×4 (07:44→21:22)
[2016-05-02] MEDS: ESCITALOPRAM OXALATE 10 MG TAB PO SCH (07:44)
[2016-05-02] MEDS: POTASSIUM CHLOR 20 MEQ PREMIX 100 ML IV PRN (07:44)
[2016-05-02] MEDS: predniSONE 20 MG TAB PO SCH (07:45)
[2016-05-02] MEDS: RESP: ALBUTEROL 2.5 MG/IPRATROPIUM 0.5 MG NEB (SCH) NEB ×2 (07:58→12:36)
[2016-05-02] MEDS: CHLORHEXIDINE 0.12% (ORAL KIT) 15 ML CUP MT SCH ×2 (08:00→21:22)
--- NOTE | 2016-05-02 08:01 | HHI.PR ---
Subjective Remarks With hypokalemia, will place a PICC line as patient is also on IV abx. Discussed with the nurse. Patient says she feels somehow improved today/ Still sob, with some productive cough. No n/v/d/c. Not eating much. Denies chest pain. Objective Vitals Vital Signs Date Time Temp Pulse Resp B/P Pulse Ox O2 Delivery O2 Flow Rate FiO2 05/02/16 06:00 97 05/02/16 04:35 99 40 05/02/16 04:00 98.2 98 22 155/70 95 05/02/16 04:00 103 05/02/16 02:00 107 05/02/16 00:54 98 40 05/02/16 00:00 98.5 86 20 124/61 99 05/02/16 00:00 95 05/01/16 22:00 94 05/01/16 20:24 94 40 05/01/16 20:00 98.1 90 22 124/56 95 05/01/16 20:00 90 05/01/16 18:00 104 05/01/16 16:00 98.1 105 24 119/59 96 05/01/16 16:00 105 05/01/16 14:00 102 05/01/16 12:00 101 05/01/16 12:00 98.3 101 15 159/70 100 05/01/16 10:00 104 05/01/16 08:03 98 Nasal Cannula 2.00 I/O 05/01/16 05/01/16 05/01/16 05/02/16 05/02/16 05/02/16 07:00 15:00 23:00 07:00 15:00 23:00 Intake Total 375 ml 335 ml 214 ml 163 ml Output Total 250 ml 850 ml 350 ml 950 ml Balance 125 ml -515 ml -136 ml -787 ml Intake Oral 120 ml 120 ml 30 ml 20 ml IV Total 255 ml 215 ml 184 ml 143 ml Output Urine Total 250 ml 450 ml 350 ml 950 ml Stool Total 400 ml # Bowel Movements 0 Result Diagram: 05/02/16 0533 05/02/16 0533 Imaging Last Impressions Chest X-Ray 04/30/16 0000 Signed Impressions: Service Date/Time: Saturday, April 30, 2016 10:49 - CONCLUSION: No significant change has occurred. Jose Angel Redmond MD Head CT 04/19/16 0000 Signed Impressions: Service Date/Time: Tuesday, April 19, 2016 11:37 - CONCLUSION: Cortical atrophy and microvascular ischemic demyelinative change. No acute intracranial abnormality is seen. Reinier Archuleta MD Objective Remarks GENERAL: Elderly female lying in bed in NAD. SKIN: Warm and dry. HEAD: Atraumatic. Normocephalic. EYES: Pupils equal and round. No scleral icterus. ENT: No nasal bleeding or discharge. NECK: Trachea midline. No JVD. CARDIOVASCULAR: Regular rate and rhythm. No murmurs rubs or gallops. RESPIRATORY: Scattered rhonchi. Synchronous that today with vent. Equal breath sounds bilaterally. GASTROINTESTINAL: Abdomen soft, non-tender, nondistended. 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 NEUROLOGICAL: Awake and laert Date of Insertion: Apr 19, 2016 Line: Central Venous Catheter Location: Subclavian A/P Problem List: (1) Sepsis ICD Code: A41.9 Status: Acute (2) Diabetes ICD Code: E11.9 Status: Chronic (3) UTI (urinary tract infection) ICD Code: N39.0 Status: Acute (4) Hypokalemia ICD Code: E87.6 Status: Acute (5) Pneumonia ICD Code: J18.9 Status: Acute (6) Metabolic encephalopathy ICD Code: G93.41 Status: Acute (7) Acute respiratory failure ICD Code: J96.00 Status: Acute Assessment and Plan 70 year-old female with: Resp Insuff - extubated 04/28 s/p Septic shock Pneumonia E coli UTI Anemia Dementia COPD Coronary artery disease Diabetes mellitus Hypertension Hyperlipidemia History of CHF Dementia Hypokalemia. Dementia Awake and alert. Head CT negative for bleed. Seen by neurology Dr. Dixon. Cardiovascular: Septic shock (resolved) Coronary artery disease on Cardizem 30mg QID for rate control- monitor HR and BP keep MAP>65mmHg. On Plavix. Echo 01/31 EF 55-60% Pulmonary: Acute respiratory failure Right lung mucous plug Pneumonia COPD Extubated on 04/23 however reintubated on 04/24 extubated 04/28 Continue with oxygen keep sat >92% DuoNeb every 4 hours and as needed and q6 hrs. Start solumedrol. taper nebs and steroid as tolerated. Add mucomyst. Add IS and acapella. Suction as need, continue pulmonary toilet. Hypokalemia: replace by IV GI/liver: on PO diet FEN/renal: Monitor renal function, I/O's, electrolytes replacement per protocol. ID: UTI- E.coli Healthcare associated pneumonia On Zosyn since 04/19. d/c after today's dose. Monitor for signs of infections ( Fever, WBC) C-diff PCR negative 04/27 Microbiology: 04/19blood culture 2 setsno growth 1220urine Legionella and pneumococcal antigen negative 04/19urine culture positive for Escherichia coli sensitive to Zosyn. 03/2016influenza A and B antigen negative 04/22sputum cultureno growth to date 04/24sputum cultureGram stain with no organisms. Endocrine: Medium dose SSI with bedside glucose every 6 hours, Heme: Monitor CBC, s/p transfusion 1u PRBC 04/26 Guaiac stool for heme negative. Prophylaxis: Zantac for stress ulcer prophylaxis/SCDs/Lovenox 40 mg SQ daily. Lines: Right subclavian central line (04/19) d/c central line and place peripheral IV's. Will place PICC line for IV abx and also KCl IV as need PT eval and treat Problem Qualifiers (1) Pneumonia: Qualified Code: J18.1 - Pneumonia of right upper lobe due to infectious organism (2) Acute respiratory failure: Qualified Code: J96.00 - Acute respiratory failure, unspecified whether with hypoxia or hypercapnia Jodi Freitas MD May 02, 2016 08:01
[2016-05-02] MEDS: SODIUM CHLORIDE 0.9% FLUSH 5 ML FLUSH IVF SCH ×2 (09:00→21:22)
--- NOTE | 2016-05-02 12:09 | HHI.PR ---
Subjective Remarks Alert and breathing well. On 4 L O2. No wheezing. Good output . Objective Vital Signs Date Time Temp Pulse Resp B/P Pulse Ox O2 Delivery O2 Flow Rate FiO2 05/02/16 08:00 98.3 98 22 160/95 95 05/02/16 08:00 90 05/02/16 07:59 97 Nasal Cannula 4.00 05/02/16 06:00 97 05/02/16 04:35 99 40 05/02/16 04:00 98.2 98 22 155/70 95 05/02/16 04:00 103 05/02/16 02:00 107 05/02/16 00:54 98 40 05/02/16 00:00 98.5 86 20 124/61 99 05/02/16 00:00 95 05/01/16 22:00 94 05/01/16 20:24 94 40 05/01/16 20:00 98.1 90 22 124/56 95 05/01/16 20:00 90 05/01/16 18:00 104 05/01/16 16:00 98.1 105 24 119/59 96 05/01/16 16:00 105 05/01/16 14:00 102 I/O 05/01/16 05/01/16 05/01/16 05/02/16 05/02/16 05/02/16 07:00 15:00 23:00 07:00 15:00 23:00 Intake Total 375 ml 335 ml 214 ml 163 ml Output Total 250 ml 850 ml 350 ml 950 ml Balance 125 ml -515 ml -136 ml -787 ml Intake Oral 120 ml 120 ml 30 ml 20 ml IV Total 255 ml 215 ml 184 ml 143 ml Output Urine Total 250 ml 450 ml 350 ml 950 ml Stool Total 400 ml # Bowel Movements 0 Result Diagram: 05/02/16 0533 05/02/16 0533 Objective Remarks This averagely built elderly white female is sitting upright and in no distress HEENT: Head normocephalic. Pupils are reactive and equal. Tongue is clear. Throat is clear, Neck: Supple. No bruits or thyroid enlargement, no lymphadenopathy. Chest: Equal movements with diminished breath sounds at the bases with occasional wheezes bilaterally . Heart: Heart sounds irregular S1-S2. No murmur. No S3 gallop. Abdomen: The abdomen is soft, protuberant. No masses, organomegaly or tenderness. Bowel sounds are active. Extremities: Amputated left leg above the knee and right leg has muscle wasting with diminished pulses and mild peripheral edema. Reflexes 1+. Cranial nerves grossly intact. Rectal: Exam is deferred. Skin: No lesions. Assessment and Plan Assessment and Plan IMPRESSION 1. Respiratory failure resolved. 2. CHF and ASHD. 3. Diabetes mellitus type 2 4. Chronic obstructive pulmonary disease with chronic bronchitis. 5. Probable basilar pneumonia resolving. 6. Hypertension and hyperlipidemia. 7. History of dementia. 8. Sepsis, resolved. Plan : 1. Wean O2 to keep sat >92. 2. IS at bedside qid. 3. prednisone 20 mg daily. 4. Nebs qid , duoneb. 5. Cont Antibiotics. 6. Chest X ray in am Mihir Lopez MD May 02, 2016 12:09
[2016-05-02] MEDS: LEVOFLOXACIN 500 MG PREMIX INJ 100 ML IV SCH (14:30)
[2016-05-02] MEDS: ENOXAPARIN SODIUM 40 MG/0.4 ML SYRINGE SQ SCH (17:22)
[2016-05-03] VITALS (17 sets, daily range): BP systolic 124–169; BP diastolic 58–71; PULSE 73–108; RESP 20–34; TEMP 98–98.7; O2SAT 93–100
[2016-05-03] MEDS: PIPERACIL-TAZO 4.5 GM PREMIX 100 ML IV SCH ×5 (01:19→23:48)
[2016-05-03] MEDS: CHLORHEXIDINE GLUCONATE 2 % 1 PACK (2 CLOTHS) TOP SCH (04:00)
[2016-05-03] MEDS: INSULIN ASPART SUPPLEMENTAL SCALE SQ SCH ×5 (05:27→23:46)
[2016-05-03 06:44] LABS: AUTOMATED NEUTROPHIL # 7.6 TH/MM3 (1.8-7.7); BASOPHIL % 0.2 % (0.0-2.0); EOSINOPHIL % 0.2 % (0.0-4.0); HEMATOCRIT 28.4 % (35.0-46.0); HEMO FLAGS DIFF FINAL; LYMPH % 10.1 % (9.0-44.0); MEAN CELL VOLUME 86.5 FL (80.0-100.0); MEAN CORPUSCULAR HEMOGLOBIN 27.1 PG (27.0-34.0); MEAN CORPUSCULAR HGB CONC 31.3 % (32.0-36.0); MONO % 10.7 % (0.0-8.0); NEUT % 78.8 % (16.0-70.0); PLATELET COUNT 253 TH/MM3 (150-450); RED BLOOD COUNT 3.28 MIL/MM3 (4.00-5.30); RED CELL DISTRIBUTION WIDTH 19.1 % (11.6-17.2); WHITE BLOOD COUNT 9.7 TH/MM3 (4.0-11.0)
[2016-05-03 06:48] LABS: BICARBONATE 30.6 MEQ/L (21.0-32.0); POTASSIUM 3.7 MEQ/L (3.5-5.1)
[2016-05-03] MEDS: CHLORHEXIDINE 0.12% (ORAL KIT) 15 ML CUP MT SCH ×2 (08:00→19:50)
[2016-05-03] MEDS: predniSONE 20 MG TAB PO SCH (09:18)
[2016-05-03] MEDS: RANITIDINE HCL SYRUP 150 MG/10 ML UDC TUBE SCH (09:18)
[2016-05-03] MEDS: ESCITALOPRAM OXALATE 10 MG TAB PO SCH (09:19)
[2016-05-03] MEDS: SODIUM CHLORIDE 0.9% FLUSH 5 ML FLUSH IVF SCH ×2 (09:19→21:30)
[2016-05-03] MEDS: DILTIAZEM HCL 30 MG TAB PO SCH ×4 (09:19→21:30)
--- NOTE | 2016-05-03 09:42 | HHI.PR ---
Subjective Remarks With sob, nonproductive cough. Ill appearing. Alert and oriented, sleepy. Denies having chest pain. No fever or chills. Objective Vitals Vital Signs Date Time Temp Pulse Resp B/P Pulse Ox O2 Delivery O2 Flow Rate FiO2 05/03/16 08:46 98 35 05/03/16 06:00 94 05/03/16 04:17 99 40 05/03/16 04:00 92 05/03/16 04:00 98.7 87 20 169/71 100 05/03/16 02:00 78 05/03/16 01:54 96 40 05/03/16 00:00 79 05/03/16 00:00 98.2 79 22 158/67 95 05/02/16 22:15 96 40 05/02/16 22:00 82 05/02/16 21:15 96 40 05/02/16 20:00 99.0 81 20 138/61 97 05/02/16 20:00 81 05/02/16 19:50 96 Nasal Cannula 2.00 05/02/16 16:00 99.3 98 22 153/63 95 05/02/16 16:00 90 05/02/16 14:00 90 05/02/16 12:00 90 05/02/16 12:00 99.0 98 22 135/67 95 05/02/16 10:00 90 I/O 05/02/16 05/02/16 05/02/16 05/03/16 05/03/16 05/03/16 07:00 15:00 23:00 07:00 15:00 23:00 Intake Total 163 ml 752 ml 171 ml Output Total 950 ml 1750 ml 1050 ml Balance -787 ml -998 ml -879 ml Intake Oral 20 ml 380 ml 20 ml IV Total 143 ml 372 ml 151 ml Output Urine Total 950 ml 1450 ml 950 ml Stool Total 300 ml 100 ml # Bowel Movements 0 Result Diagram: 05/03/16 0446 05/03/16 0446 Imaging Last Impressions Chest X-Ray 04/30/16 0000 Signed Impressions: Service Date/Time: Saturday, April 30, 2016 10:49 - CONCLUSION: No significant change has occurred. Jose Angel Redmond MD Head CT 04/19/16 0000 Signed Impressions: Service Date/Time: Tuesday, April 19, 2016 11:37 - CONCLUSION: Cortical atrophy and microvascular ischemic demyelinative change. No acute intracranial abnormality is seen. Reinier Archuleta MD Objective Remarks GENERAL: Elderly female lying in bed in NAD. SKIN: Warm and dry. HEAD: Atraumatic. Normocephalic. EYES: Pupils equal and round. No scleral icterus. ENT: No nasal bleeding or discharge. NECK: Trachea midline. No JVD. CARDIOVASCULAR: Regular rate and rhythm. No murmurs rubs or gallops. RESPIRATORY: Scattered rhonchi. Synchronous that today with vent. Equal breath sounds bilaterally. GASTROINTESTINAL: Abdomen soft, non-tender, nondistended. 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 NEUROLOGICAL: Awake and laert Date of Insertion: Apr 19, 2016 Line: Central Venous Catheter Location: Subclavian A/P Problem List: (1) Sepsis ICD Code: A41.9 Status: Acute (2) Diabetes ICD Code: E11.9 Status: Chronic (3) UTI (urinary tract infection) ICD Code: N39.0 Status: Acute (4) Hypokalemia ICD Code: E87.6 Status: Acute (5) Pneumonia ICD Code: J18.9 Status: Acute (6) Metabolic encephalopathy ICD Code: G93.41 Status: Acute (7) Acute respiratory failure ICD Code: J96.00 Status: Acute Assessment and Plan 70 year-old female with: Resp Insuff - extubated 04/28 s/p Septic shock Pneumonia E coli UTI Anemia Dementia COPD Coronary artery disease Diabetes mellitus Hypertension Hyperlipidemia History of CHF Dementia Hypokalemia. Dementia Awake and alert. Head CT negative for bleed. Seen by neurology Dr. Dixon. Cardiovascular: Septic shock (resolved) Coronary artery disease on Cardizem 30mg QID for rate control- monitor HR and BP keep MAP>65mmHg. On Plavix. Echo 01/31 EF 55-60% Pulmonary: Acute respiratory failure Right lung mucous plug Pneumonia COPD Extubated on 04/23 however reintubated on 04/24 extubated 04/28 Continue with oxygen keep sat >92% DuoNeb every 4 hours and as needed and q6 hrs. Start solumedrol. taper nebs and steroid as tolerated. Add mucomyst. Add IS and acapella. Suction as need, continue pulmonary toilet. Hypokalemia: replace by IV GI/liver: on PO diet FEN/renal: Monitor renal function, I/O's, electrolytes replacement per protocol. ID: UTI- E.coli Healthcare associated pneumonia On Zosyn since 04/19. d/c after today's dose. Monitor for signs of infections ( Fever, WBC) C-diff PCR negative 04/27 Microbiology: 04/19blood culture 2 setsno growth 1220urine Legionella and pneumococcal antigen negative 04/19urine culture positive for Escherichia coli sensitive to Zosyn. 03/2016influenza A and B antigen negative 04/22sputum cultureno growth to date 04/24sputum cultureGram stain with no organisms. Endocrine: Medium dose SSI with bedside glucose every 6 hours, Heme: Monitor CBC, s/p transfusion 1u PRBC 04/26 Guaiac stool for heme negative. Prophylaxis: Zantac for stress ulcer prophylaxis/SCDs/Lovenox 40 mg SQ daily. Lines: Right subclavian central line (04/19) d/c central line and place peripheral IV's. PICC line for IV abx and IVF PT eval and treat Problem Qualifiers (1) Pneumonia: Qualified Code: J18.1 - Pneumonia of right upper lobe due to infectious organism (2) Acute respiratory failure: Qualified Code: J96.00 - Acute respiratory failure, unspecified whether with hypoxia or hypercapnia Jodi Freitas MD May 03, 2016 09:42
[2016-05-03] MEDS: LEVOFLOXACIN 500 MG PREMIX INJ 100 ML IV SCH (14:11)
[2016-05-03] MEDS: ENOXAPARIN SODIUM 40 MG/0.4 ML SYRINGE SQ SCH (14:12)
--- NOTE | 2016-05-03 18:52 | HHI.PR ---
Subjective Remarks Alert and breathing OK. On 4 L O2. No chest pain. Good output . Objective Vital Signs Date Time Temp Pulse Resp B/P Pulse Ox O2 Delivery O2 Flow Rate FiO2 05/03/16 18:00 93 05/03/16 16:00 98.0 105 23 124/58 95 05/03/16 16:00 105 05/03/16 14:00 102 05/03/16 12:00 73 05/03/16 12:00 98.3 73 34 160/71 96 05/03/16 10:00 81 05/03/16 08:46 98 35 05/03/16 08:00 88 05/03/16 08:00 98.4 88 33 157/69 97 05/03/16 06:00 94 05/03/16 04:17 99 40 05/03/16 04:00 92 05/03/16 04:00 98.7 87 20 169/71 100 05/03/16 02:00 78 05/03/16 01:54 96 40 05/03/16 00:00 79 05/03/16 00:00 98.2 79 22 158/67 95 05/02/16 22:15 96 40 05/02/16 22:00 82 05/02/16 21:15 96 40 05/02/16 20:00 99.0 81 20 138/61 97 05/02/16 20:00 81 05/02/16 19:50 96 Nasal Cannula 2.00 I/O 05/02/16 05/02/16 05/02/16 05/03/16 05/03/16 05/03/16 07:00 15:00 23:00 07:00 15:00 23:00 Intake Total 163 ml 752 ml 171 ml 548 ml Output Total 950 ml 1750 ml 1050 ml 1350 ml Balance -787 ml -998 ml -879 ml -802 ml Intake Oral 20 ml 380 ml 20 ml 280 ml IV Total 143 ml 372 ml 151 ml 268 ml Output Urine Total 950 ml 1450 ml 950 ml 1050 ml Stool Total 300 ml 100 ml 300 ml # Bowel Movements 0 Result Diagram: 05/03/166 05/03/166 Objective Remarks This averagely built elderly white female is sitting upright and in no distress HEENT: Head normocephalic. Pupils are reactive and equal. Tongue is clear. Throat is clear, Neck: Supple. No bruits or thyroid enlargement, no lymphadenopathy. Chest: Equal movements with diminished breath sounds at the bases with occasional wheezes bilaterally .Few basal crackles. Heart: Heart sounds irregular S1-S2. No murmur. No S3 gallop. Abdomen: The abdomen is soft, protuberant. No masses, organomegaly or tenderness. Bowel sounds are active. Extremities: Amputated left leg above the knee and right leg has muscle wasting with diminished pulses and mild peripheral edema. Reflexes 1+. Cranial nerves grossly intact. Rectal: Exam is deferred. Skin: No lesions. Assessment and Plan Assessment and Plan IMPRESSION 1. Respiratory failure resolved. 2. CHF and ASHD. 3. Diabetes mellitus type 2 4. Chronic obstructive pulmonary disease with chronic bronchitis. 5. Probable basilar pneumonia resolving. 6. Hypertension and hyperlipidemia. 7. History of dementia. 8. Sepsis, resolved. Plan : 1. Wean O2 to keep sat >92. 2. IS at bedside qid. 3. Cont prednisone 20 mg daily. 4. Nebs qid , duoneb. 5. Cont Antibiotics. 6. BMP in am Mihir Lopez MD May 03, 2016 18:52
[2016-05-03] MEDS ORDERED: ONDANSETRON HCL 4 MG/2 ML VIAL IV PUSH PRN (21:30)
[2016-05-04] VITALS (21 sets, daily range): BP systolic 120–163; BP diastolic 58–72; PULSE 74–114; RESP 18–24; TEMP 98–98.7; O2SAT 90–100
[2016-05-04] MEDS: CHLORHEXIDINE GLUCONATE 2 % 1 PACK (2 CLOTHS) TOP SCH (02:44)
--- NOTE | 2016-05-04 04:58 | RADRPT ---
EXAM DATE/TIME: 05/04/2016 03:30 [facility] COMPARISON: CHEST SINGLE AP, April 30, 2016, 10:49. INDICATIONS : Shortness of breath. MEDICAL HISTORY : Hypertension. Diabetes mellitus type II. Deep venous thrombosis. Dementia SURGICAL HISTORY : None. ENCOUNTER: Subsequent ACUITY: 2 weeks PAIN SCORE: Non-responsive. LOCATION: Bilateral chest FINDINGS: A single portable frontal view the chest shows no interval change in the bilateral pulmonary infiltra cruzito and small bilateral pleural effusions. Heart remains enlarged. CONCLUSION: Unchanged bilateral pulmonary infiltrates and small effusions. Cardiomegaly. Aurelio Gonzalez Jr., MD on May 04, 2016 at 4:56 Board Certified Radiologist. This report was verified electronically.
[2016-05-04] MEDS: INSULIN ASPART SUPPLEMENTAL SCALE SQ SCH ×4 (05:28→23:35)
[2016-05-04] MEDS: PIPERACIL-TAZO 4.5 GM PREMIX 100 ML IV SCH ×4 (06:20→23:35)
[2016-05-04 07:10] LABS: BICARBONATE 33.8 MEQ/L (21.0-32.0)
[2016-05-04 07:48] LABS: AUTOMATED NEUTROPHIL # 6.5 TH/MM3 (1.8-7.7); BASOPHIL % 0.2 % (0.0-2.0); EOSINOPHIL % 0.5 % (0.0-4.0); HEMATOCRIT 33.4 % (35.0-46.0); HEMO FLAGS DIFF FINAL; LYMPH % 11.3 % (9.0-44.0); MEAN CELL VOLUME 90.8 FL (80.0-100.0); MEAN CORPUSCULAR HEMOGLOBIN 27.9 PG (27.0-34.0); MEAN CORPUSCULAR HGB CONC 30.7 % (32.0-36.0); MONO % 10.8 % (0.0-8.0); NEUT % 77.2 % (16.0-70.0); PLATELET COUNT 242 TH/MM3 (150-450); RED BLOOD COUNT 3.68 MIL/MM3 (4.00-5.30); RED CELL DISTRIBUTION WIDTH 19.9 % (11.6-17.2); WHITE BLOOD COUNT 8.4 TH/MM3 (4.0-11.0)
[2016-05-04] MEDS: predniSONE 20 MG TAB PO SCH (09:02)
[2016-05-04] MEDS: DILTIAZEM HCL 30 MG TAB PO SCH ×4 (09:02→20:51)
[2016-05-04] MEDS: ESCITALOPRAM OXALATE 10 MG TAB PO SCH (09:02)
[2016-05-04] MEDS: CHLORHEXIDINE 0.12% (ORAL KIT) 15 ML CUP MT SCH ×2 (09:02→20:00)
[2016-05-04] MEDS: RANITIDINE HCL SYRUP 150 MG/10 ML UDC TUBE SCH (09:03)
[2016-05-04] MEDS: SODIUM CHLORIDE 0.9% FLUSH 5 ML FLUSH IVF SCH ×2 (09:03→20:51)
[2016-05-04] MEDS: POTASSIUM CHLOR 20 MEQ PREMIX 100 ML IV PRN ×2 (11:04→17:17)
[2016-05-04 12:08] LABS: BLOOD GAS BASE EXCESS 9.7 mmol/L (-2-2); BLOOD GAS CARBOXYHEMOGLOBIN 1.5 % (0-4); BLOOD GAS HCO3 35 mmol/L (22-26); BLOOD GAS O2 HGB SATURATION 91 % (90-100); BLOOD GAS OXYGEN CONTENT 12.7 Vol % (12.0-20.0); BLOOD GAS PCO2 56 mmHg (38-42); BLOOD GAS PO2 66 mmHg (61-120); BLOOD GAS TOTAL HGB 9.8 G/DL (12.0-16.0); TEMP CORR TO 98.6
[2016-05-04 12:09] LABS: CRITICAL VALUE YES; DRAW SITE LT BRACHIAL; FIO2 70 %; NUMBER OF ARTERIAL PUNCTURES 2; OXYGEN DEVICE BiPAP; ULNAR PULSE PRESENT; VENT SETTINGS IPAP10/EPAP5
[2016-05-04 12:10] LABS: STAT NO
[2016-05-04] MEDS: RESP: ALBUTEROL 2.5 MG/IPRATROPIUM 0.5 MG NEB (PRN) INH ×3 (12:15→20:05)
--- NOTE | 2016-05-04 12:35 | RADRPT ---
EXAM DATE/TIME: 05/04/2016 11:42 [facility] COMPARISON: CHEST SINGLE AP, May 04, 2016, 3:30. INDICATIONS : Desaturation. MEDICAL HISTORY : None. SURGICAL HISTORY : None. ENCOUNTER: Subsequent ACUITY: 2 weeks PAIN SCORE: Non-responsive. LOCATION: chest FINDINGS: Persistent bilateral infiltrates with associated effusions, left worse than right, unchanged. Visuali zed cardiac contours are grossly stable. CONCLUSION: No significant change Rodrigo Upton MD on May 04, 2016 at 12:32 Board Certified Radiologist. This report was verified electronically.
[2016-05-04 15:11] LABS: BLOOD GAS BASE EXCESS 9.1 mmol/L (-2-2); BLOOD GAS CARBOXYHEMOGLOBIN 1.4 % (0-4); BLOOD GAS HCO3 34 mmol/L (22-26); BLOOD GAS METHEMOGLOBIN 0.5 % (0-2); BLOOD GAS O2 HGB SATURATION 94 % (90-100); BLOOD GAS OXYGEN CONTENT 12.9 Vol % (12.0-20.0); BLOOD GAS PCO2 52 mmHg (38-42); BLOOD GAS PO2 79 mmHg (61-120); BLOOD GAS TOTAL HGB 9.7 G/DL (12.0-16.0); TEMP CORR TO 98.6
[2016-05-04 15:12] LABS: CRITICAL VALUE YES; DRAW SITE RT BRACHIAL; FIO2 100 %; NUMBER OF ARTERIAL PUNCTURES 1; OXYGEN DEVICE BiPAP; VENT SETTINGS IPAP14/EPAP7
[2016-05-04 15:13] LABS: ULNAR PULSE PRESENT
[2016-05-04 15:14] LABS: STAT NO
[2016-05-04] MEDS: LEVOFLOXACIN 500 MG PREMIX INJ 100 ML IV SCH (15:21)
[2016-05-04] MEDS: ENOXAPARIN SODIUM 40 MG/0.4 ML SYRINGE SQ SCH (15:21)
--- NOTE | 2016-05-04 16:58 | HHI.PR ---
Objective Vitals Vital Signs Date Time Temp Pulse Resp B/P Pulse Ox O2 Delivery O2 Flow Rate FiO2 05/04/16 16:00 98.2 74 19 163/65 92 05/04/16 16:00 74 05/04/16 15:43 100 100 05/04/16 14:00 114 05/04/16 12:00 79 05/04/16 12:00 98.1 94 19 129/58 96 05/04/16 11:52 96 70 05/04/16 10:00 96 05/04/16 08:00 98.0 94 24 161/72 90 05/04/16 08:00 94 05/04/16 07:46 96 BiPAP 80 05/04/16 07:38 90 100 05/04/16 06:00 83 05/04/16 04:56 98 45 05/04/16 04:00 94 05/04/16 04:00 98.5 94 18 156/67 93 05/04/16 02:00 79 05/04/16 01:52 93 40 05/04/16 00:00 98.1 91 21 155/70 91 05/04/16 00:00 91 05/03/16 23:55 93 35 05/03/16 22:00 108 05/03/16 20:00 98 05/03/16 20:00 98.0 98 22 158/70 94 05/03/16 19:43 95 Nasal Cannula 3.00 05/03/16 18:00 93 I/O 05/03/16 05/03/16 05/03/16 05/04/16 05/04/16 05/04/16 07:00 15:00 23:00 07:00 15:00 23:00 Intake Total 171 ml 548 ml 236 ml 128 ml 821 ml Output Total 1050 ml 1350 ml 800 ml 750 ml 800 ml Balance -879 ml -802 ml -564 ml -622 ml 21 ml Intake Oral 20 ml 280 ml 0 ml IV Total 151 ml 268 ml 236 ml 128 ml 821 ml Output Urine Total 950 ml 1050 ml 600 ml 700 ml 750 ml Stool Total 100 ml 300 ml 200 ml 50 ml 50 ml Result Diagram: 05/04/16 0443 05/04/16 0443 Date of Insertion: Apr 19, 2016 Line: Central Venous Catheter Location: Subclavian Agnieszka Guillory MD May 04, 2016 16:58 (1) Sepsis ICD Code: A41.9 Status: Acute (2) Diabetes ICD Code: E11.9 Status: Chronic (3) UTI (urinary tract infection) ICD Code: N39.0 Status: Acute (4) Hypokalemia ICD Code: E87.6 Status: Acute (5) Pneumonia ICD Code: J18.9 Status: Acute (6) Metabolic encephalopathy ICD Code: G93.41 Status: Acute (7) Acute respiratory failure ICD Code: J96.00 Status: Acute Assessment and Plan 70 year-old female with: Resp Insuff - extubated 04/28 s/p Septic shock Pneumonia E coli UTI Anemia Dementia COPD Coronary artery disease Diabetes mellitus Hypertension Hyperlipidemia History of CHF Dementia Hypokalemia. Dementia Awake and alert. Head CT negative for bleed. Seen by neurology Dr. Dixon. Cardiovascular: Septic shock (resolved) Coronary artery disease on Cardizem 30mg QID for rate control- monitor HR and BP keep MAP>65mmHg. On Plavix. Echo 01/31 EF 55-60% Pulmonary: Acute respiratory failure Right lung mucous plug Pneumonia COPD Extubated on 04/23 however reintubated on 04/24 extubated 04/28 Continue with oxygen keep sat >92% DuoNeb every 4 hours and as needed and q6 hrs. Start solumedrol. taper nebs and steroid as tolerated. Add mucomyst. Add IS and acapella. Suction as need, continue pulmonary toilet. Hypokalemia: replace by IV GI/liver: on PO diet FEN/renal: Monitor renal function, I/O's, electrolytes replacement per protocol. ID: UTI- E.coli Healthcare associated pneumonia On Zosyn since 04/19. d/c after today's dose. Monitor for signs of infections ( Fever, WBC) C-diff PCR negative 04/27 Microbiology: 04/19blood culture 2 setsno growth 1220urine Legionella and pneumococcal antigen negative 04/19urine culture positive for Escherichia coli sensitive to Zosyn. 03/2016influenza A and B antigen negative 04/22sputum cultureno growth to date 04/24sputum cultureGram stain with no organisms. Endocrine: Medium dose SSI with bedside glucose every 6 hours, Heme: Monitor CBC, s/p transfusion 1u PRBC 12/27 Guaiac stool for heme negative. Prophylaxis: Zantac for stress ulcer prophylaxis/SCDs/Lovenox 40 mg SQ daily. Lines: Right subclavian central line (04/19) d/c central line and place peripheral IV's. PICC line for IV abx and IVF PT eval and treat Problem Qualifiers (1) Pneumonia: Qualified Code: J18.1 - Pneumonia of right upper lobe due to infectious organism (2) Acute respiratory failure: Qualified Code: J96.00 - Acute respiratory failure, unspecified whether with hypoxia or hypercapnia Jodi Freitas MD May 03, 2016 09:42 Problem Qualifiers (1) Pneumonia: Qualified Code: J18.1 - Pneumonia of right upper lobe due to infectious organism (2) Acute respiratory failure: Qualified Code: J96.00 - Acute respiratory failure, unspecified whether with hypoxia or hypercapnia Agnieszka Guillory MD May 04, 2016 16:58
--- NOTE | 2016-05-04 17:09 | HHI.PR ---
Subjective Remarks patient awake and alert currently on 80% BiPAP- 11/11/80% discussed with her code status- with staff nurse- she made it clear Objective Vitals Vital Signs Date Time Temp Pulse Resp B/P Pulse Ox O2 Delivery O2 Flow Rate FiO2 05/04/16 16:00 98.2 74 19 163/65 92 05/04/16 16:00 74 05/04/16 15:43 100 100 05/04/16 14:00 114 05/04/16 12:00 79 05/04/16 12:00 98.1 94 19 129/58 96 05/04/16 11:52 96 70 05/04/16 10:00 96 05/04/16 08:00 98.0 94 24 161/72 90 05/04/16 08:00 94 05/04/16 07:46 96 BiPAP 80 05/04/16 07:38 90 100 05/04/16 06:00 83 05/04/16 04:56 98 45 05/04/16 04:00 94 05/04/16 04:00 98.5 94 18 156/67 93 05/04/16 02:00 79 05/04/16 01:52 93 40 05/04/16 00:00 98.1 91 21 155/70 91 05/04/16 00:00 91 05/03/16 23:55 93 35 05/03/16 22:00 108 05/03/16 20:00 98 05/03/16 20:00 98.0 98 22 158/70 94 05/03/16 19:43 95 Nasal Cannula 3.00 05/03/16 18:00 93 I/O 05/03/16 05/03/16 05/03/16 05/04/16 05/04/16 05/04/16 06:59 14:59 22:59 06:59 14:59 22:59 Intake Total 171 ml 548 ml 236 ml 128 ml 821 ml Output Total 1050 ml 1350 ml 800 ml 750 ml 800 ml Balance -879 ml -802 ml -564 ml -622 ml 21 ml Intake Oral 20 ml 280 ml 0 ml IV Total 151 ml 268 ml 236 ml 128 ml 821 ml Output Urine Total 950 ml 1050 ml 600 ml 700 ml 750 ml Stool Total 100 ml 300 ml 200 ml 50 ml 50 ml Result Diagram: 05/04/16 0443 05/04/16 0443 Imaging Last Impressions Chest X-Ray 05/04/16 0600 Signed Impressions: Service Date/Time: Wednesday, May 04, 2016 03:30 - CONCLUSION: Unchanged bilateral pulmonary infiltrates and small effusions. Cardiomegaly. Aurelio Gonzalez Jr., MD Head CT 04/19/16 0000 Signed Impressions: Service Date/Time: Tuesday, April 19, 2016 11:37 - CONCLUSION: Cortical atrophy and microvascular ischemic demyelinative change. No acute intracranial abnormality is seen. Reinier Archuleta MD Objective Remarks anicteric lungs- decreased breath sounds, no rales, or wheezes regular rhythm abdomen soft nontender extremities no edema Urinary Catheter: Yes Foote insert reason: ICU Pt Getting Diuretics Date of Insertion: Apr 19, 2016 Line: Central Venous Catheter Location: Subclavian A/P Problem List: (1) Sepsis ICD Code: A41.9 Status: Acute (2) Diabetes ICD Code: E11.9 Status: Chronic (3) UTI (urinary tract infection) ICD Code: N39.0 Status: Acute (4) Hypokalemia ICD Code: E87.6 Status: Acute (5) Pneumonia ICD Code: J18.9 Status: Acute (6) Metabolic encephalopathy ICD Code: G93.41 Status: Acute (7) Acute respiratory failure ICD Code: J96.00 Status: Acute Assessment and Plan 70 year-old female with: Resp Insuff - extubated 04/28 s/p Septic shock Pneumonia E coli UTI Anemia Dementia COPD Coronary artery disease Diabetes mellitus Hypertension Hyperlipidemia History of CHF Dementia Hypokalemia. Dementia Awake and alert. Head CT negative for bleed. Seen by neurology Dr. Dixon. Cardiovascular: Septic shock (resolved) Coronary artery disease on Cardizem 30mg QID for rate control- monitor HR and BP keep MAP>65mmHg. On Plavix. Echo 01/31 EF 55-60% Pulmonary: Acute respiratory failure Right lung mucous plug Pneumonia COPD Extubated on 04/23 however reintubated on 04/24 extubated 04/28 Continue with oxygen keep sat >92% DuoNeb every 4 hours and as needed and q6 hrs. Start solumedrol. taper nebs and steroid as tolerated. Add mucomyst. Add IS and acapella. Suction as need, continue pulmonary toilet. Hypokalemia: replace by IV GI/liver: on PO diet KCL po elixir 20 meq bid FEN/renal: Monitor renal function, I/O's, electrolytes replacement per protocol. ID: UTI- E.coli [facility] associated pneumonia On Zosyn since 04/19. d/c after today's dose. Monitor for signs of infections ( Fever, WBC) C-diff PCR negative 04/27 Microbiology: 04/19blood culture 2 setsno growth 1220urine Legionella and pneumococcal antigen negative 04/19urine culture positive for Escherichia coli sensitive to Zosyn. 03/2016influenza A and B antigen negative 04/22sputum cultureno growth to date 04/24sputum cultureGram stain with no organisms. Endocrine: Medium dose SSI with bedside glucose every 6 hours, Heme: Monitor CBC, s/p transfusion 1u PRBC 04/26 Guaiac stool for heme negative. Prophylaxis: Zantac for stress ulcer prophylaxis/SCDs/Lovenox 40 mg SQ daily. Lines: Right subclavian central line (04/19) d/c central line and place peripheral IV's. PICC line for IV abx and IVF PT eval and treat discuss with her Code status-- DNR will consult palliative care to determine goals of care Problem Qualifiers (1) Pneumonia: Qualified Code: J18.1 - Pneumonia of right upper lobe due to infectious organism (2) Acute respiratory failure: Qualified Code: J96.00 - Acute respiratory failure, unspecified whether with hypoxia or hypercapnia Agnieszka Guillory MD May 04, 2016 17:09
--- NOTE | 2016-05-04 17:20 | HHI.PR ---
Subjective Remarks Alert and has become hypoxic . On a Bipap mask now.FIo2 at 100 %. CXr shows increased infiltrates Poor output . Objective Vital Signs Date Time Temp Pulse Resp B/P Pulse Ox O2 Delivery O2 Flow Rate FiO2 05/04/16 16:00 98.2 74 19 163/65 92 05/04/16 16:00 74 05/04/16 15:43 100 100 05/04/16 14:00 114 05/04/16 12:00 79 05/04/16 12:00 98.1 94 19 129/58 96 05/04/16 11:52 96 70 05/04/16 10:00 96 05/04/16 08:00 98.0 94 24 161/72 90 05/04/16 08:00 94 05/04/16 07:46 96 BiPAP 80 05/04/16 07:38 90 100 05/04/16 06:00 83 05/04/16 04:56 98 45 05/04/16 04:00 94 05/04/16 04:00 98.5 94 18 156/67 93 05/04/16 02:00 79 05/04/16 01:52 93 40 05/04/16 00:00 98.1 91 21 155/70 91 05/04/16 00:00 91 05/03/16 23:55 93 35 05/03/16 22:00 108 05/03/16 20:00 98 05/03/16 20:00 98.0 98 22 158/70 94 05/03/16 19:43 95 Nasal Cannula 3.00 05/03/16 18:00 93 I/O 05/03/16 05/03/16 05/03/16 05/04/16 05/04/16 05/04/16 07:00 15:00 23:00 07:00 15:00 23:00 Intake Total 171 ml 548 ml 236 ml 128 ml 821 ml Output Total 1050 ml 1350 ml 800 ml 750 ml 800 ml Balance -879 ml -802 ml -564 ml -622 ml 21 ml Intake Oral 20 ml 280 ml 0 ml IV Total 151 ml 268 ml 236 ml 128 ml 821 ml Output Urine Total 950 ml 1050 ml 600 ml 700 ml 750 ml Stool Total 100 ml 300 ml 200 ml 50 ml 50 ml Result Diagram: 05/04/1644205/04/16442 Objective Remarks This averagely built elderly white female is in Moderate distress HEENT: Head normocephalic. Pupils are reactive and equal. Tongue is clear. Throat is clear, Neck: Supple. No bruits or thyroid enlargement, no lymphadenopathy. Chest: Equal movements with diminished breath sounds at the bases with occasional wheezes bilaterally with Bi basal crackles. Heart: Heart sounds irregular S1-S2. No murmur. No S3 gallop. Abdomen: The abdomen is soft, protuberant. No masses, organomegaly or tenderness. Bowel sounds are active. Extremities: Amputated left leg above the knee and right leg has muscle wasting with diminished pulses and mild peripheral edema. Reflexes 1+. Rectal: Exam is deferred. Skin: No lesions. Assessment and Plan Assessment and Plan IMPRESSION 1. Hypoxic Respiratory failure . 2. CHF and ASHD. 3. Diabetes mellitus type 2 4. Chronic obstructive pulmonary disease with chronic bronchitis. 5. Probable basilar pneumonia resolving. 6. Hypertension and hyperlipidemia. 7. History of dementia. 8. Sepsis, resolved. Plan : 1. Bipap 15/5 , FIO2 100 % and wean O2. 2. IS at bedside qid. 3. Cont prednisone 20 mg daily. 4. Nebs qid , duoneb. 5. Cont Antibiotics. 6. Lasix 40 mg IV bid. 7. Need to address Code status 8. CBC CXR ,BMP Mihir Lopez MD May 04, 2016 17:20
[2016-05-04] MEDS: FUROSEMIDE 40 MG/4 ML VIAL IV PUSH SCH (18:32)
[2016-05-04] MEDS: POTASSIUM CHLORIDE 10 MEQ CONTROLLED RELEASE TAB PO SCH (20:51)
[2016-05-04] MEDS ORDERED: POTASSIUM CHLORIDE 20 MEQ CONTROLLED RELEASE TAB PO SCH (21:00)
[2016-05-05] VITALS (17 sets, daily range): BP systolic 99–132; BP diastolic 52–70; PULSE 78–129; RESP 19–24; TEMP 98.1–99.6; O2SAT 91–99
[2016-05-05] MEDS: CHLORHEXIDINE GLUCONATE 2 % 1 PACK (2 CLOTHS) TOP SCH (02:47)
[2016-05-05] MEDS: INSULIN ASPART SUPPLEMENTAL SCALE SQ SCH ×3 (05:53→18:00)
[2016-05-05] MEDS: PIPERACIL-TAZO 4.5 GM PREMIX 100 ML IV SCH ×3 (05:53→18:22)
[2016-05-05] MEDS: RANITIDINE HCL SYRUP 150 MG/10 ML UDC TUBE SCH (09:00)
[2016-05-05] MEDS: ESCITALOPRAM OXALATE 10 MG TAB PO SCH (09:00)
[2016-05-05] MEDS: POTASSIUM CHLORIDE 10 MEQ CONTROLLED RELEASE TAB PO SCH ×2 (09:00→20:30)
[2016-05-05] MEDS: DILTIAZEM HCL 30 MG TAB PO SCH ×4 (09:00→20:30)
[2016-05-05] MEDS: FUROSEMIDE 40 MG/4 ML VIAL IV PUSH SCH ×2 (09:00→18:22)
[2016-05-05] MEDS: predniSONE 20 MG TAB PO SCH (09:00)
[2016-05-05] MEDS: CHLORHEXIDINE 0.12% (ORAL KIT) 15 ML CUP MT SCH ×2 (10:37→20:00)
[2016-05-05] MEDS: SODIUM CHLORIDE 0.9% FLUSH 5 ML FLUSH IVF SCH ×2 (10:38→20:30)
--- NOTE | 2016-05-05 11:56 | PD.CONS ---
Consult Service Palliative Care . Consult Requested By Dr. Guillory . Primary Care Physician Unknown . Reason for Consultation a. To assist with evaluation and management of symptoms including: Pain; dyspnea b. To assist medical decision maker(s) with: better understanding of current medical conditions; weighing benefits/burdens of medical treatment options; making medical treatment decisions. . HPI History of Present Illness History is challenging. Patient can only tolerate short periods of time off BiBAP. I took the opportunity to have her verbally designate a health care surrogate; and to discuss goals of treatment. I could not get family history, ROS, psychosocial/spritual history, etc. Ms Andrade is a 70 y/o female with a known past medical history including hypertension; hyperlipidemia; depression; peripheral neuropathy; DM; dementai; COPD; and CAD who was sent to the emergency department at [facility] from [facility] on 04/19/2016 because of altered mental status. She was brought in as a "stroke alert.". Per the facility staff, the patient was awake and alert and conversing on the morning of admission. At 11 AM she become almost completely unresponsive. Blood sugar was normal when checked by the paramedics. The patient has been a resident at her snf since . Her previous admission to [facility] was in January 2016 for respiratory failure with NSTEMI and new onset CHF on top of her underlying COPD. Initial vital signs upon emergency department presentation were as follows: Temperature 97.6; pulse 98; respiratory rate 16; blood pressure 158/63; pulse oximetry 94% Initial evaluation by the emergency department physician noted the following: Patient is obese and in no acute distress. The patient was unresponsiveshe was unable to follow any commands or answer any questions. She was nonverbal. There was no gaze deficit. There is no facial palsy. There were no spontaneous movements of the extremities. There was no response to noxious stimulus. The remainder of the exam was unremarkable. Initial diagnostic testing revealed the following: * CBC showed WBC 15.4; hemoglobin 10.7; platelet count 225 * Coagulation profile showed PT 12.2; INR 1.1; PTT 31.3 * Metabolic profile showed sodium 140; potassium 4.2; chloride 98; BUN 24; creatinine 0.7; glucose 173; lactic acid 0.7 * Urinalysis showed trace glucose; positive urine nitrites; large leukocyte esterase; 62 WBCs; moderate WBC clumps; many bacteria * Cardiac serology showed total CK 19; troponin less than 0.02 * ABGs on the ventilator at 100% FiO2 showed pH 7.39; PCO2 54; PCO2 165; bicarbonate 32; base excess 7.5 * EKG showed sinus rhythm with some PVCs but no significant ST-T wave abnormalities. * CT of the brain was negative for any acute abnormalities * Chest x-ray showed a right sided infiltrate. In the emergency department the patient was empirically started on Zosyn and vancomycin. There was loss of a gag reflex and the patient was intubated and placed on mechanical ventilation. The case was discussed with neurology and the patient was not considered to be a candidate for TPA as there is still a question whether this was stroke or perhaps just severe sepsis. Critical care was consulted and the patient was admitted to the medical intensive care unit. Blood cultures, Legionella antigen, strep pneumonia antigen and influenza antigens were all negative. The patient's urine grew out Escherichia coli. The patient became hypotensive the night of admission. She required fluid boluses and norepinephrine pressor support. A right subclavian central line was placed. The patient was weaned from the norepinephrine and extubated on . Unfortunately on the evening of 04/24 she decompensated again and required re-intubation. CXR revealed atelectasis involving the right lung. Emergency bronchoscopy was performed with significant mucous plugging noted on the right. Bronchial lavage was performed and there was improvement on chest x- ray. Hypotension followed reintubation and the patient was restarted on the levo fed. The patient gradually improved. The norepinephrine was again weaned. The patient was extubated on 04/29/16. The patient was transferred to the hospitalist service but remained in the medical ICU. She has not been able to "turn the corner" and recover. She is currently requiring BiPAP periodically. Earlier today she had a dysrhythmia that appeared to be V-tach. I have spoken personally with Dr. Lopez, her pulmonary consult, who feels her lung disease is not likely going to improve significantly. He felt she would be an appropriate candidate for hospice if her goals were primarily comfort oriented. I saw the patient along with Dr. Guillory. We discussed resuscitation status together and the patient was able to tell us on two separate occasions that she would not want to be resuscitated. We spoke about ongoing aggressive care vs comfort oriented care. She indicated she would be interested in comfort care at this time. I inquired about a health care decision maker. She indicated that if she were unable to make her own decisions, she would want her sister -- Marcela -- to make her health care decisions for her. . . . Function/Cognitive Trajectory Patient has been a long-term resident of [facility]. Date of her initial admission was 05/13/14. [facility] functional assessment on 02/08/16 was as follows: * Dependent for bathing, transfers, toileting * Assistance needed for dressing * Independent for eating. * Frequently incontinent of bladder/bowel * Has contractures . Review of Systems ROS Limitations: Clinical Condition (Patient requiring BiPAP. I cannot obtain a good ROS. No family present. ) Past Family Social History Coded Allergies: Aspirin (Unverified Adverse Reaction, Unknown, 01/31/16) Past Medical History * Hypertension * Hyperlipidemia * DM * Peripheral neuropathy * Dementia * GERD * COPD * Depression * GERD * Peripheral vascular disease * Hx of gastric ulcer * Macular degeneration hypertension; hyperlipidemia; depression; peripheral neuropathy; DM; dementai; COPD; and CAD Past Surgical History * History of left [id number] amputation for gangrene. Reported Medications Prehospital medications included the following: Albuterol Neb (Albuterol Sulfate) 2.5 Mg/3 Ml Neb 1 Vial NEB Q6HR PRN Combivent Respimat Inh (Ipratropium-Albuterol Inh) 20-100 Retirement/Act Aero 1 Puff INH QID Tylenol (Acetaminophen) 325 Mg Tab 650 Mg PO Q4H PRN Percocet (Oxycodone-Acetaminophen) 10-325 mg Tab 1 Tab PO Q6H PRN Senna (Sennosides) 8.6 Mg Tab 17.2 Mg PO HS Lactulose Liq (Lactulose) 10 Gm/15 Ml Soln 30 Ml PO HS -- Hold for loose stools Carafate (Sucralfate) 1 Gm Tab 1 Gm PO ACHS Nitro-Dur Patch 24 HR (Nitroglycerin) 0.1 Mg/Hr Patch 0.1 Mg T-DERMAL DAILY Prednisone 20 Mg Tab 20 Mg PO DIRECTED Titrating Dose Protonix Liq (Pantoprazole Sodium) 40 Mg Pkt 40 Mg PO DAILY Potassium Chloride Liq (Potassium Chloride) 20 Meq/15 Ml Soln 40 Meq PO DAILY Lasix (Furosemide) 20 Mg Tab 20 Mg PO DAILY Lisinopril 2.5 Mg Tab 2.5 Mg PO BID -- Hold if SBP <105 or DBP < 65 Coreg (Carvedilol) 3.125 Mg Tab 3.125 Mg PO BID -- Hold for SBP <100 or DBP <60 Colace (Docusate Sodium) 100 Mg Cap 100 Mg PO BID -- Hold for loose stool Milk of Magnesia Liq (Magnesium Hydroxide) 400 Mg/5 Ml Susp 30 Ml PO DAILY PRN Omeprazole 40 Mg Cap 40 Mg PO DAILY Glucose Gel (Dextrose) 40 % Gel 1 Tube PO DIRECTED PRN Glucagon Emergency Inj Kit (Glucagon (Rdna) Inj Kit) 1 Mg Kit 1 Mg IM ONCE PRN Glipizide 5 Mg Tab 5 Mg PO DAILY -- Take 30 minutes before a meal Humalog Inj (Insulin Human Lispro) 1,000 Unit/10 Ml Vial 2-6 Units SQ ACHS Sliding Scale: call md if CBG <60MG?DL or >300MG/DL, 0-59=0 units, notify MD, 60-150=0 units, 151-200=2 units, 201-250=4 units, 251-300=6 units, > 300=6 units/call MD Lantus Inj (Insulin Glargine) 100 Unit/Ml Inj 15 Units SQ DAILY Plavix (Clopidogrel Bisulfate) 75 Mg Tab 75 Mg PO DAILY Zithromax (Azithromycin) 500 Mg Tab 500 Mg PO DAILY 5 Days Lexapro (Escitalopram Oxalate) 10 Mg Tab 10 Mg PO DAILY . Current Medications Medications (Trade) Dose Ordered Sig/Nikolai Route Start Time Stop Time Status Last Admin (NS Flush) 2 ml UNSCH PRN IVF 04/19/16 14:45 05/03/16 21:30 (NS Flush) 2 ml BID IVF 04/19/16 21:00 05/05/16 10:38 (Zantac Liq) 150 mg DAILY TUBE 04/19/16 16:00 05/05/16 09:00 (Lovenox Inj) 40 mg Q24H SQ 04/19/16 15:00 05/04/16 15:21 Miscellaneous Information 1 Q361D XX 04/19/16 14:45 (Chlorhexidine 2% Cloth) Taper DAILY@04 TOP 04/20/16 04:00 04/16/17 03:59 05/03/16 04:00 Chlorhexidine Gluconate 3 pack 3 pack UNSCH PRN TOP 04/19/16 14:45 (Zosyn 4.5 Gm Premix) 100 ml @ 200 mls/hr Q6H IV 04/19/16 18:00 05/05/16 05:53 (Brethine Inj) 1 mg UNSCH PRN SQ 04/20/16 05:15 (NovoLOG SUPPLEMENTAL SCALE) 1 Q6HR SQ 04/20/16 18:00 05/04/16 23:35 (D50w (Vial) Inj) 25 ml UNSCH PRN IV 04/20/16 16:15 04/24/16 04:59 Glucagon 1 mg 1 mg UNSCH PRN IM/SQ 04/20/16 16:15 Potassium Chloride 100 ml @ 50 mls/hr Q2H PRN IV 04/21/16 17:15 04/26/16 13:26 (KCl 20 Meq Premix Inj) 100 ml @ 50 mls/hr Q2H PRN IV 04/21/16 17:15 05/04/16 17:17 Potassium Chloride 40 meq 40 meq UNSCH PRN PO/TUBE 04/21/16 17:15 05/02/16 11:56 Potassium Chloride 100 ml @ 25 mls/hr UNSCH PRN IV 04/21/16 17:15 04/28/16 22:49 Potassium Chloride 100 ml @ 50 mls/hr Q2H PRN IV 04/21/16 17:15 (Magnesium Sulfate Inj/NS Inj) 100 ml @ 50 mls/hr UNSCH PRN IV 04/21/16 17:15 Magnesium Oxide 800 mg 800 mg UNSCH PRN PO 04/21/16 17:15 (Magnesium Sulfate Inj/NS Inj) 100 ml @ 50 mls/hr UNSCH PRN IV 04/21/16 17:15 04/22/16 05:57 Potassium Phosphate 2000 mg 2,000 mg Q4H PRN PO 04/21/16 17:15 (Sodium Phosphate Inj/NS 250 ml Inj) 250 ml @ 42 mls/hr UNSCH PRN IV 04/21/16 17:15 (KCl 40 Meq/30 ml Liq) 40 meq UNSCH PRN PO/TUBE 04/21/16 17:15 Potassium Phosphate 2000 mg 2,000 mg UNSCH PRN PO/TUBE 04/21/16 17:15 (Potassium Phosphate Inj/NS 250 ml Inj) 260 ml @ 42 mls/hr UNSCH PRN IV 04/21/16 17:15 04/28/16 08:29 (Lexapro) 10 mg DAILY PO 04/24/16 09:00 05/05/16 09:00 (Peridex 0.12% Liq) 15 ml BID@08,20 MT 04/24/16 20:00 05/05/16 10:37 Diltiazem HCl 30 mg 30 mg QID PO 04/28/16 18:00 05/05/16 09:00 (Levaquin 500 Mg Premix Inj) 100 ml @ 100 mls/hr Q24H IV 04/30/16 14:30 05/04/16 15:21 (Deltasone) 20 mg DAILY PO 05/02/16 09:00 05/05/16 09:00 (Zofran Inj) 4 mg Q6HR PRN IV PUSH 05/03/16 21:30 05/03/16 21:30 (Lasix Inj) 40 mg BID@,18 IV PUSH 05/04/16 18:00 05/05/16 09:00 (KCl) 30 meq Q12HR PO 05/04/16 21:00 05/05/16 09:00 Substance Use Tobacco: Has approximately a 80-ptjg-fkwi smoking history. No longer smoking. Alcohol: No history of alcohol abuse. Prescription med abuse: No known prescription medication abuse. Illicits: No known use of illicits . Psychosocial History Living Will: Never completed Health Care Surrogate: Never completed Durable Power of Retail Experience Specialist: Never completed Date completed: Not completed . Health Care Surrogate(s): Patient has verbally stated on 05/05/16 that she wanted her sister Marcela to serve as her surrogate. This was witnessed by myself and by Dr. Guillory. . Documented care wishes: No written documentation of health care goals/preferences. . Today's verbally stated goals: Patient has confirmed that she does not want to be resuscitated. She has stated she would prefer comfort oriented care over aggressive care. . Family/friends goals: No family/friends at bedside. Tried to call both patient's sister and daughter. . . Ethical and Legal Issues Patient appears to have an adequate understanding of her medical condition . I believe she is capacitated to make her own health care decisions. . Physical Exam Vital Signs Date Time Temp Pulse Resp B/P Pulse Ox O2 Delivery O2 Flow Rate FiO2 05/05/16 08:07 99 Non-Rebreather 15.00 100 05/05/16 06:00 91 05/05/16 04:17 96 80 05/05/16 04:00 99 05/05/16 04:00 98.5 99 22 130/60 98 05/05/16 04:00 98 Bi-Pap 100 05/05/16 02:00 81 05/05/16 01:15 99 100 05/05/16 00:00 98.3 78 24 132/57 92 05/05/16 00:00 92 Bi-Pap 100 05/05/16 00:00 78 05/04/16 22:35 98 100 05/04/16 22:15 100 Bi-Pap 100 05/04/16 22:00 97 100 05/04/16 22:00 90 05/04/16 20:05 96 Non-Rebreather 15.00 100 05/04/16 20:00 95 Non-Rebreather 15.00 05/04/16 20:00 86 05/04/16 20:00 98.7 86 20 120/60 95 05/04/16 18:33 95 Non-Rebreather 100 05/04/16 18:00 87 05/04/16 16:00 98.2 74 19 163/65 92 05/04/16 16:00 74 05/04/16 15:43 100 100 05/04/16 14:00 114 05/04/16 12:00 79 05/04/16 12:00 98.1 94 19 129/58 96 05/04/16 11:52 96 70 . 05/04/16 05/05/16 18:59 06:59 Intake Total 821 ml 911 ml Output Total 800 ml 1850 ml Balance 21 ml -939 ml Intake Oral 0 ml 275 ml IV Total 821 ml 636 ml Output Urine Total 750 ml 1850 ml Stool Total 50 ml # Bowel Movements 1 . Exam CONSTITUTIONAL/GENERAL: This is an adequately nourished patient,on BiPAP, in an MICU bed. She is awake, alert, conversant. She is in no apparent distress. She was taken off BiPAP for about 10 minutes while trying to speak with her about goals/preferences. TUBES/LINES/DRAINS: BiPAP ; de leon catheter; rectal tube; peripheral IV; SKIN: No jaundice, rashes, or lesions. Skin tear on left wrist, otherwise, no wounds seen anteriorly. Skin temperature appropriate. Not diaphoretic. HEAD: Atraumatic. Normocephalic. EYES: Pupils equal and round and reactive. Extraocular motions intact. No scleral icterus. No injection or drainage. Fundi not examined. ENT: Hearing grossly normal. Nose without bleeding or purulent drainage. Throat without visible erythema, exudates, masses, or lesions. NECK: Trachea midline. Supple, nontender. No palpable thyroid enlargement or nodularity. CARDIOVASCULAR: Irregegularly irregular rhythm without murmurs, gallops, or rubs. No JVD. Peripheral pulses symmetric. RESPIRATORY/CHEST: Symmetric,slightly labored respirations. Clear to auscultation. Breath sounds equal but diminished bilaterally particularly at bases. . No wheezes, rales, or rhonchi. GASTROINTESTINAL: Abdomen soft, non-tender, nondistended. No hepato-splenomegaly , or palpable masses. No guarding. Bowel sounds present. GENITOURINARY: Without palpable bladder distension. De Leon catheter in place. MUSCULOSKELETAL: Patient has a left AKA. Stump without lesions. Extremities otherwise without clubbing, cyanosis, or edema. No joint tenderness or effusion noted. No calf tenderness. Right foot contracture. LYMPHATICS: No palpable cervical or supraclavicular adenopathy. NEUROLOGICAL: Awake and alert. Motor and sensory grossly within normal limits. Follows commands. Answering questions appropriately. PSYCHIATRIC: No obvious anxiety/depression. No apparent hallucinations or other psychotic thought process. . Diagnostic Tests Laboratory Laboratory Tests Test 05/02/16 05/03/16 05/04/16 05/04/16 22:31 04:46 04:43 11:55 Potassium Level 3.9 MEQ/L 3.7 MEQ/L 3.0 MEQ/L (3.5-5.1) (3.5-5.1) (3.5-5.1) White Blood Count 9.7 TH/MM3 8.4 TH/MM3 (4.0-11.0) (4.0-11.0) Red Blood Count 3.28 MIL/MM3 3.68 MIL/MM3 (4.00-5.30) (4.00-5.30) Hemoglobin 8.9 GM/DL 10.3 GM/DL (11.6-15.3) (11.6-15.3) Hematocrit 28.4 % 33.4 % (35.0-46.0) (35.0-46.0) Mean Corpuscular Volume 86.5 FL 90.8 FL (80.0-100.0) (80.0-100.0) Mean Corpuscular Hemoglobin 27.1 PG 27.9 PG (27.0-34.0) (27.0-34.0) Mean Corpuscular Hemoglobin 31.3 % 30.7 % Concent (32.0-36.0) (32.0-36.0) Red Cell Distribution Width 19.1 % 19.9 % (11.6-17.2) (11.6-17.2) Platelet Count 253 TH/MM3 242 TH/MM3 (150-450) (150-450) Mean Platelet Volume 10.7 FL 10.8 FL (7.0-11.0) (7.0-11.0) Neutrophils (%) (Auto) 78.8 % 77.2 % (16.0-70.0) (16.0-70.0) Lymphocytes (%) (Auto) 10.1 % 11.3 % (9.0-44.0) (9.0-44.0) Monocytes (%) (Auto) 10.7 % 10.8 % (0.0-8.0) (0.0-8.0) Eosinophils (%) (Auto) 0.2 % (0.0-4.0) 0.5 % (0.0-4.0) Basophils (%) (Auto) 0.2 % (0.0-2.0) 0.2 % (0.0-2.0) Neutrophils # (Auto) 7.6 TH/MM3 6.5 TH/MM3 (1.8-7.7) (1.8-7.7) Lymphocytes # (Auto) 1.0 TH/MM3 1.0 TH/MM3 (1.0-4.8) (1.0-4.8) Monocytes # (Auto) 1.0 TH/MM3 0.9 TH/MM3 (0-0.9) (0-0.9) Eosinophils # (Auto) 0.0 TH/MM3 0.0 TH/MM3 (0-0.4) (0-0.4) Basophils # (Auto) 0.0 TH/MM3 0.0 TH/MM3 (0-0.2) (0-0.2) CBC Comment DIFF FINAL DIFF FINAL Differential Comment Sodium Level 138 MEQ/L 138 MEQ/L (136-145) (136-145) Chloride Level 99 MEQ/L 96 MEQ/L (98-107) (98-107) Carbon Dioxide Level 30.6 MEQ/L 33.8 MEQ/L (21.0-32.0) (21.0-32.0) Anion Gap 8 MEQ/L (5-15) 8 MEQ/L (5-15) Blood Urea Nitrogen 4 MG/DL (7-18) 4 MG/DL (7-18) Creatinine 0.49 MG/DL 0.41 MG/DL (0.50-1.00) (0.50-1.00) Estimat Glomerular Filtration 125 ML/MIN 153 ML/MIN Rate (>89) (>89) Random Glucose 132 MG/DL 139 MG/DL (74-106) (74-106) Calcium Level 8.2 MG/DL 8.1 MG/DL (8.5-10.1) (8.5-10.1) Blood Gas Puncture Site LT BRACHIAL Blood Gas Patient Temperature 98.6 Blood Gas HCO3 35 mmol/L (22-26) Blood Gas Base Excess 9.7 mmol/L (-2-2) Blood Gas Oxygen Saturation 91 % (90-100) Arterial Blood pH 7.41 (7.380-7.420) Arterial Blood Partial 56 mmHg (38-42) Pressure CO2 Arterial Blood Partial 66 mmHg Pressure O2 (61-120) Arterial Blood Oxygen Content 12.7 Vol % (12.0-20.0) Arterial Blood 1.5 % (0-4) Carboxyhemoglobin Arterial Blood Methemoglobin 1.0 % (0-2) Blood Gas Hemoglobin 9.8 G/DL (12.0-16.0) Oxygen Delivery Device BiPAP Blood Gas Ventilator Setting IPAP10/EPAP5 Blood Gas Inspired Oxygen 70 % Test 05/04/16 15:00 Blood Gas Puncture Site RT BRACHIAL Blood Gas Patient Temperature 98.6 Blood Gas HCO3 34 mmol/L (22-26) Blood Gas Base Excess 9.1 mmol/L (-2-2) Blood Gas Oxygen Saturation 94 % (90-100) Arterial Blood pH 7.43 (7.380-7.420) Arterial Blood Partial 52 mmHg (38-42) Pressure CO2 Arterial Blood Partial 79 mmHg Pressure O2 (61-120) Arterial Blood Oxygen Content 12.9 Vol % (12.0-20.0) Arterial Blood 1.4 % (0-4) Carboxyhemoglobin Arterial Blood Methemoglobin 0.5 % (0-2) Blood Gas Hemoglobin 9.7 G/DL (12.0-16.0) Oxygen Delivery Device BiPAP Blood Gas Ventilator Setting IPAP14/EPAP7 Blood Gas Inspired Oxygen 100 % . Result Diagram: 05/04/16 0443 05/04/16 0443 Microbiology * Urine cx from 04/19/16 --> E coli * Blood cx from 04/19/16 --> no growth * Hemoccult negative x 3. . Imaging Last Impressions Chest X-Ray 05/04/16 0600 Signed Impressions: Service Date/Time: Wednesday, May 04, 2016 03:30 - CONCLUSION: Unchanged bilateral pulmonary infiltrates and small effusions. Cardiomegaly. Aurelio Gonzalez Jr., MD Head CT 04/19/16 0000 Signed Impressions: Service Date/Time: Tuesday, April 19, 2016 11:37 - CONCLUSION: Cortical atrophy and microvascular ischemic demyelinative change. No acute intracranial abnormality is seen. Reinier Archuleta MD . Procedures * Intubation/mechanical ventilation * Central line placement. * Bronchoscopy * Bronchoalveolar lavage . . Patient/Family Conference Present at Family Conference: Unable to get in touch with family today. . Issues Discussed: Assessment and Plan Disease Oriented Problem List: (1) Respiratory failure (2) COPD (chronic obstructive pulmonary disease) (3) Pneumonia Comment: Bibasilar pneumonia . (4) UTI (urinary tract infection) Comment: E. coli grew out of admission urine culture. . (5) Diabetes (6) Peripheral vascular disease (7) GERD (gastroesophageal reflux disease) (8) Hypoalbuminemia due to protein-calorie malnutrition (9) Hyperlipidemia (10) Peripheral neuropathy (11) Anemia (12) Hypertension (13) Macular degeneration (14) Unilateral AKA Symptom Scale: (1) Pain 0-10 Scale: Unable to quantify Comment: Patient appears to be indicating she has mostly back pain today. Has known peripheral neuropathy in her lower extremity. Other sources of pain might include de leon cathter; BiPAP mask; vascular catheters; prolonged bedbound status. Patient indicating she has moderate to severe pain at time of my visit but has difficulty localizing it, quantifying it, or qualifying it. . . (2) Dyspnea 0-10 Scale: Unable to quantify Comment: Intermittent dyspnea. Cannot quantify. . Pertinent Non-Medical Issues Psychosocial: Need to contact family to get psychosocial history. Spiritual: To be determined Legal: No written advance directives available. Patient has verbally stated that she wants her sister to serve as health care surrogate. Ethical issues impacting care: Patient is reportedly intermittently confused. At time of my visit she had insight into her illness and was felt to be capacitated to make her own health care decisions. . Important Contacts * Steffany Carey (daughter) [phone]; C: [phone] * Marcela Herrera (daughter) [phone] . Prognosis This 71 y/o female who is a senior living snf resident came in as a " stroke alert" but her altered mental status was felt to be due to sepsis. Her hospital course has been very alley and she has been intubated and extubated twice. She continues to need intermittent BiPAP and as of 05/05/16 she was beginning to show some ventricular dysrhythmias. Ms. Andrade, who has DM, peripeheral neuropathy, peripheral vascular disease s/p Left AKA, was also admitted last January for a NSTEMI with accompanying CHF. Her repairer screen crusher believes her prognosis from a pulmonary status is poor. In my clinical opinion life expectancy is less than 6 months if the disease were to follow its normal course. . Code Status: No Code (Per patient's stated preference.) Plan == Code status: NO CODE per patient's stated preference. == Decision maker: Patient appeared capacitated to make her own health care decisions at time of my visit today. Should she become incapacitated she has requested that her sister -- Marcela -- be her health care surrogate. As the patient has a reported history of dementia, I would recommend that major decisons be shared decisions with her surrogate. == Goals of medical treatment. Patient has asked for DNR status. She has indicated that comfort is her more important goal. She indicated she felt she would prefer to focus on comfort and leave the rest in God's hands. I will want to discuss hospice option with patient again on 05/06/16 and include family in the decision making. == Pain: Patient has been complaining of pain (mostly back pain?) . There are no current orders for opiate analgesics. I imagine the medical team is reluctant to give any medicine that could further depress respiratory status. Should patient transition to "comfort oriented care," would recommend she be started on low dose scheduled opiates. == Dyspnea: Currently reasonably controlled with respiratory support, nebs, steroids. == Palliative care placed calls to family -- Steffany Carey and Marcela Herrera - - no answer from either. Will try to connect again on 05/06 to get more information about patient and to make sure we have a designated proxy decision maker who accepts the role. == Palliative care will continue to follow to assist with symptom management and to further clarify goals of treatment as the clincal course evolves. . Time Spent Total Floor Time (mins): 75 Face to Face Time (mins): 20 >50% Counseling/Coord of Care: No Thank you for the opportunity to participate in the care of Ms. Andrade. . Attestation To help prompt me to consider important information that might be impacting today's encounter and assessment, information from prior notes written by myself or my colleagues may have been "brought forward" into today's note. My signature on this note, however, is an attestation that I personally performed the exam, history, and/or decision-making noted today, and, unless otherwise indicated, the interactions with patient, family, and staff as well as the review of records all occurred today. I also attest that the listed assessment and stated plan reflect my best clinical judgment today based on the combination of historical information, prior notes, and today's exam/ interactions. When time spent is documented, it refers only to time spent today by the signer, or if indicated, combined time spent today by collaborating physician/nurse practitioner. . Veto Loyola MD May 05, 2016 11:56
--- NOTE | 2016-05-05 12:32 | HHI.PR ---
Subjective Remarks Alert and seems less SOB. On a NRB mask now.FIo2 at 100 %. CXR shows increased infiltrates. Not able to take deep breaths. Objective Vital Signs Date Time Temp Pulse Resp B/P Pulse Ox O2 Delivery O2 Flow Rate FiO2 05/05/16 08:07 99 Non-Rebreather 15.00 100 05/05/16 06:00 91 05/05/16 04:17 96 80 05/05/16 04:00 99 05/05/16 04:00 98.5 99 22 130/60 98 05/05/16 04:00 98 Bi-Pap 100 05/05/16 02:00 81 05/05/16 01:15 99 100 05/05/16 00:00 98.3 78 24 132/57 92 05/05/16 00:00 92 Bi-Pap 100 05/05/16 00:00 78 05/04/16 22:35 98 100 05/04/16 22:15 100 Bi-Pap 100 05/04/16 22:00 97 100 05/04/16 22:00 90 05/04/16 20:05 96 Non-Rebreather 15.00 100 05/04/16 20:00 95 Non-Rebreather 15.00 05/04/16 20:00 86 05/04/16 20:00 98.7 86 20 120/60 95 05/04/16 18:33 95 Non-Rebreather 100 05/04/16 18:00 87 05/04/16 16:00 98.2 74 19 163/65 92 05/04/16 16:00 74 05/04/16 15:43 100 100 05/04/16 14:00 114 I/O 05/04/16 05/04/16 05/04/16 05/05/16 05/05/16 05/05/16 07:00 15:00 23:00 07:00 15:00 23:00 Intake Total 128 ml 821 ml 426 ml 485 ml Output Total 750 ml 800 ml 1500 ml 350 ml Balance -622 ml 21 ml -1074 ml 135 ml Intake Oral 0 ml 150 ml 125 ml IV Total 128 ml 821 ml 276 ml 360 ml Output Urine Total 700 ml 750 ml 1500 ml 350 ml Stool Total 50 ml 50 ml # Bowel Movements 1 Result Diagram: 05/04/16 0443 05/04/16 0443 Objective Remarks This averagely built elderly white female is in Mild distress HEENT: Head normocephalic. Pupils are reactive and equal. Tongue is clear. Throat is clear, Neck: Supple. No bruits or thyroid enlargement, no lymphadenopathy. Chest: Equal movements with diminished breath sounds at the bases with occasional wheezes bilaterally with Bi basal crackles. Heart: Heart sounds irregular S1-S2. No murmur. No S3 gallop. Abdomen: The abdomen is soft, protuberant. No masses, organomegaly or tenderness. Bowel sounds are active. Extremities: Amputated left leg above the knee and right leg has muscle wasting with diminished pulses and mild peripheral edema. Reflexes 1+. Rectal: Exam is deferred. Skin: No lesions. Assessment and Plan Assessment and Plan IMPRESSION 1. Hypoxic Respiratory failure . 2. CHF and ASHD. 3. Diabetes mellitus type 2 4. Chronic obstructive pulmonary disease with chronic bronchitis. 5. Probable basilar pneumonia resolving. 6. Hypertension and hyperlipidemia. 7. History of dementia. 8. Sepsis, resolved. Plan : 1. Bipap 15/5 , at HS FIO2 100 % and wean O2. 2. IS at bedside qid. 3. Cont prednisone 20 mg daily. 4. Nebs qid , duoneb. 5. Cont Antibiotics. 6. Lasix 20 mg IV bid. 7. No Code/Palliative care to see. 8. CBC CXR ,BMP in am Mihir Lopez MD May 05, 2016 12:32
[2016-05-05] MEDS: RESP: ALBUTEROL 2.5 MG/IPRATROPIUM 0.5 MG NEB (PRN) INH (15:13)
[2016-05-05] MEDS: LEVOFLOXACIN 500 MG PREMIX INJ 100 ML IV SCH (16:14)
[2016-05-05] MEDS: ENOXAPARIN SODIUM 40 MG/0.4 ML SYRINGE SQ SCH (16:14)
--- NOTE | 2016-05-05 17:56 | HHI.PR ---
Subjective Remarks awake and alert, high fi02 requirement on biPAP desaturates if switched to face mask patient is awake and alert she made it explicitly clear to me that she "does not want resuscitation" states that she told her sister of this Objective Vitals Vital Signs Date Time Temp Pulse Resp B/P Pulse Ox O2 Delivery O2 Flow Rate FiO2 05/05/16 10:00 96 05/05/16 08:07 99 Non-Rebreather 15.00 100 05/05/16 08:00 96 05/05/16 08:00 98 Non-Rebreather 15.00 05/05/16 08:00 98.5 98 22 121/58 98 05/05/16 06:00 91 05/05/16 04:17 96 80 05/05/16 04:00 99 05/05/16 04:00 98.5 99 22 130/60 98 05/05/16 04:00 98 Bi-Pap 100 05/05/16 02:00 81 05/05/16 01:15 99 100 05/05/16 00:00 98.3 78 24 132/57 92 05/05/16 00:00 92 Bi-Pap 100 05/05/16 00:00 78 05/04/16 22:35 98 100 05/04/16 22:15 100 Bi-Pap 100 05/04/16 22:00 97 100 05/04/16 22:00 90 05/04/16 20:05 96 Non-Rebreather 15.00 100 05/04/16 20:00 95 Non-Rebreather 15.00 05/04/16 20:00 86 05/04/16 20:00 98.7 86 20 120/60 95 05/04/16 18:33 95 Non-Rebreather 100 05/04/16 18:00 87 I/O 05/04/16 05/04/16 05/04/16 05/05/16 05/05/16 05/05/16 07:00 15:00 23:00 07:00 15:00 23:00 Intake Total 128 ml 821 ml 426 ml 485 ml Output Total 750 ml 800 ml 1500 ml 350 ml Balance -622 ml 21 ml -1074 ml 135 ml Intake Oral 0 ml 150 ml 125 ml IV Total 128 ml 821 ml 276 ml 360 ml Output Urine Total 700 ml 750 ml 1500 ml 350 ml Stool Total 50 ml 50 ml # Bowel Movements 1 Result Diagram: 05/04/16 0443 05/04/16 0443 Imaging Last Impressions Chest X-Ray 05/04/16 0600 Signed Impressions: Service Date/Time: Wednesday, May 04, 2016 03:30 - CONCLUSION: Unchanged bilateral pulmonary infiltrates and small effusions. Cardiomegaly. Aurelio Gonzalez Jr., MD Head CT 04/19/16 0000 Signed Impressions: Service Date/Time: Tuesday, April 19, 2016 11:37 - CONCLUSION: Cortical atrophy and microvascular ischemic demyelinative change. No acute intracranial abnormality is seen. Reinier Archuleta MD Objective Remarks anicteric lungs- decreased breath sounds, no rales, or wheezes regular rhythm abdomen soft nontender extremities no edema Date of Insertion: Apr 19, 2016 Line: Central Venous Catheter Location: Subclavian A/P Problem List: (1) Sepsis ICD Code: A41.9 Status: Acute (2) Diabetes ICD Code: E11.9 Status: Chronic (3) UTI (urinary tract infection) ICD Code: N39.0 Status: Acute (4) Hypokalemia ICD Code: E87.6 Status: Acute (5) Pneumonia ICD Code: J18.9 Status: Acute (6) Metabolic encephalopathy ICD Code: G93.41 Status: Acute (7) Acute respiratory failure ICD Code: J96.00 Status: Acute Assessment and Plan 70 year-old female with: Resp Insuff - extubated 04/28 s/p Septic shock Pneumonia E coli UTI Anemia Dementia COPD Coronary artery disease Diabetes mellitus Hypertension Hyperlipidemia History of CHF Dementia Hypokalemia. Dementia Awake and alert. Head CT negative for bleed. Seen by neurology Dr. Dixon. Cardiovascular: Septic shock (resolved) Coronary artery disease on Cardizem 30mg QID for rate control- monitor HR and BP keep MAP>65mmHg. On Plavix. Echo 01/31 EF 55-60% Pulmonary: Acute respiratory failure Right lung mucous plug Pneumonia COPD Extubated on 04/23 however reintubated on 04/24 extubated 04/28 Continue with oxygen keep sat >92% DuoNeb every 4 hours and as needed and q6 hrs. Start solumedrol. taper nebs and steroid as tolerated. Add mucomyst. Add IS and acapella. Suction as need, continue pulmonary toilet. Hypokalemia: replace by IV GI/liver: on PO diet KCL po elixir 20 meq bid FEN/renal: Monitor renal function, I/O's, electrolytes replacement per protocol. ID: UTI- E.coli Healthcare associated pneumonia On Zosyn since 04/19. d/c after today's dose. Monitor for signs of infections ( Fever, WBC) C-diff PCR negative 04/27 Microbiology: 04/19blood culture 2 setsno growth 1220urine Legionella and pneumococcal antigen negative 04/19urine culture positive for Escherichia coli sensitive to Zosyn. 03/2016influenza A and B antigen negative 04/22sputum cultureno growth to date 04/24sputum cultureGram stain with no organisms. Endocrine: Medium dose SSI with bedside glucose every 6 hours, Heme: Monitor CBC, s/p transfusion 1u PRBC 04/26 Guaiac stool for heme negative. Prophylaxis: Zantac for stress ulcer prophylaxis/SCDs/Lovenox 40 mg SQ daily. Lines: Right subclavian central line (04/19) d/c central line and place peripheral IV's. PICC line for IV abx and IVF Sinus tachycardia with episodes of WCT start BB discuss with her Code status-- DNR will consult palliative care to determine goals of care Problem Qualifiers (1) Pneumonia: Qualified Code: J18.1 - Pneumonia of right upper lobe due to infectious organism (2) Acute respiratory failure: Qualified Code: J96.00 - Acute respiratory failure, unspecified whether with hypoxia or hypercapnia Agnieszka Guillory MD May 05, 2016 17:56
[2016-05-05] MEDS ORDERED: METOPROLOL TARTRATE 5 MG/5 ML VIAL IV PUSH PRN (19:00)
[2016-05-05] MEDS: MORPHINE SULFATE 4 MG/ML INJ IV PUSH PRN (19:16)
[2016-05-06] VITALS (16 sets, daily range): BP systolic 101–130; BP diastolic 54–66; PULSE 76–136; RESP 12–21; TEMP 98.1–98.9; O2SAT 88–100
[2016-05-06] MEDS: PIPERACIL-TAZO 4.5 GM PREMIX 100 ML IV SCH ×4 (00:16→17:31)
[2016-05-06] MEDS: CHLORHEXIDINE GLUCONATE 2 % 1 PACK (2 CLOTHS) TOP SCH (04:00)
[2016-05-06] MEDS: INSULIN ASPART SUPPLEMENTAL SCALE SQ SCH ×4 (05:33→17:41)
[2016-05-06 06:18] LABS: AUTOMATED NEUTROPHIL # 9.5 TH/MM3 (1.8-7.7); BASOPHIL % 0.2 % (0.0-2.0); EOSINOPHIL % 0.4 % (0.0-4.0); HEMATOCRIT 29.3 % (35.0-46.0); HEMO FLAGS DIFF FINAL; LYMPH % 6.4 % (9.0-44.0); LYMPHOCYTE # 0.7 TH/MM3 (1.0-4.8); MEAN CELL VOLUME 85.6 FL (80.0-100.0); MEAN CORPUSCULAR HEMOGLOBIN 27.1 PG (27.0-34.0); MEAN CORPUSCULAR HGB CONC 31.7 % (32.0-36.0); PLATELET COUNT 296 TH/MM3 (150-450); RED BLOOD COUNT 3.42 MIL/MM3 (4.00-5.30); RED CELL DISTRIBUTION WIDTH 18.8 % (11.6-17.2); WHITE BLOOD COUNT 11.1 TH/MM3 (4.0-11.0)
[2016-05-06 07:01] LABS: BICARBONATE 37.7 MEQ/L (21.0-32.0); MAGNESIUM 1.4 MG/DL (1.5-2.5)
[2016-05-06] MEDS: predniSONE 20 MG TAB PO SCH (07:51)
[2016-05-06] MEDS: RANITIDINE HCL SYRUP 150 MG/10 ML UDC TUBE SCH (07:51)
[2016-05-06] MEDS: POTASSIUM CHLORIDE 10 MEQ CONTROLLED RELEASE TAB PO SCH (07:51)
[2016-05-06] MEDS: SODIUM CHLORIDE 0.9% FLUSH 5 ML FLUSH IVF SCH ×2 (07:52→21:09)
[2016-05-06] MEDS: DILTIAZEM HCL 30 MG TAB PO SCH ×4 (07:52→21:09)
[2016-05-06] MEDS: ESCITALOPRAM OXALATE 10 MG TAB PO SCH (07:53)
[2016-05-06] MEDS: FUROSEMIDE 40 MG/4 ML VIAL IV PUSH SCH ×2 (07:53→17:31)
[2016-05-06] MEDS: CHLORHEXIDINE 0.12% (ORAL KIT) 15 ML CUP MT SCH ×2 (07:53→20:00)
--- NOTE | 2016-05-06 11:31 | HHI.PR ---
Subjective Remarks Alert and less SOB. On a NRB mask.FIo2 at 100 %. Sats 100 .CXR with basal atelectasis. wants to eat.Good output with lasix IV Objective Vital Signs Date Time Temp Pulse Resp B/P Pulse Ox O2 Delivery O2 Flow Rate FiO2 05/06/16 10:56 96 Non-Rebreather 15.00 05/06/16 06:00 104 05/06/16 04:13 94 70 05/06/16 04:00 100 Bi-Pap 70 05/06/16 04:00 118 05/06/16 04:00 98.4 118 16 101/66 98 05/06/16 02:00 81 05/06/16 01:25 93 70 05/06/16 00:00 100 Bi-Pap 70 05/06/16 00:00 77 05/06/16 00:00 98.7 77 12 108/54 100 05/05/16 22:10 97 80 05/05/16 22:00 83 05/05/16 20:00 98 Non-Rebreather 15.00 05/05/16 20:00 98.1 102 20 113/53 91 05/05/16 20:00 93 05/05/16 19:50 95 Non-Rebreather 15.00 100 05/05/16 18:00 108 05/05/16 16:00 129 05/05/16 16:00 99.6 129 19 99/70 99 05/05/16 16:00 98 Non-Rebreather 15.00 05/05/16 14:00 112 05/05/16 12:00 100 05/05/16 12:00 98.9 100 19 105/52 98 05/05/16 12:00 98 Non-Rebreather 15.00 I/O 05/05/16 05/05/16 05/05/16 05/06/16 05/06/16 05/06/16 07:00 15:00 23:00 07:00 15:00 23:00 Intake Total 485 ml 481 ml 285 ml 301 ml Output Total 350 ml 1550 ml 1750 ml 450 ml Balance 135 ml -1069 ml -1465 ml -149 ml Intake Oral 125 ml 240 ml 150 ml 150 ml IV Total 360 ml 241 ml 135 ml 151 ml Output Urine Total 350 ml 1550 ml 1650 ml 450 ml Stool Total 100 ml 0 ml # Bowel Movements 1 1 Result Diagram: 05/06/16 0502 05/06/16 0502 Objective Remarks This averagely built elderly white female is in No distress HEENT: Head normocephalic. Pupils are reactive and equal. Tongue is clear. Throat is clear, Neck: Supple. No bruits or thyroid enlargement, no lymphadenopathy.No JVD. Chest: Equal movements with diminished breath sounds at the bases with Bi basal crackles. Heart: Heart sounds irregular S1-S2. No murmur. No S3 gallop. Abdomen: The abdomen is soft, protuberant. No masses, organomegaly or tenderness. Bowel sounds are active. Extremities: Amputated left leg above the knee and right leg has muscle wasting with diminished pulses and mild peripheral edema. Reflexes 1+. Rectal: Exam is deferred. Skin: No lesions. Assessment and Plan Assessment and Plan IMPRESSION 1. Hypoxic Respiratory failure . 2. CHF and ASHD. 3. Diabetes mellitus type 2 4. Chronic obstructive pulmonary disease with chronic bronchitis. 5. Probable basilar pneumonia resolving. 6. Hypertension and hyperlipidemia. 7. History of dementia. 8. Sepsis, resolved. Plan : 1. Bipap 15/5 , at HS FIO2 35 % at HS and wean O2 to N/C 5L daytime. 2. IS at bedside qid. 3. Cont prednisone 20 mg daily. 4. Nebs qid , duoneb. 5. Cont Antibiotics. 6. Lasix 40 mg IV bid. 7. No Code/Palliative care to see. 8. CBC CXR ,BMP in am. Mihir Lopez MD May 06, 2016 11:30
[2016-05-06] MEDS: MORPHINE SULFATE 4 MG/ML INJ IV PUSH PRN (12:41)
[2016-05-06] MEDS: POTASSIUM CHLORIDE 20 MEQ CONTROLLED RELEASE TAB PO SCH ×3 (12:48→21:09)
--- NOTE | 2016-05-06 14:29 | HHI.PR ---
Subjective Remarks high fi02 requirement, appears comfortable at rest sats 98-100% awake and alert, weak expectoration Objective Vitals Vital Signs Date Time Temp Pulse Resp B/P Pulse Ox O2 Delivery O2 Flow Rate FiO2 05/06/16 10:56 96 Non-Rebreather 15.00 05/06/16 06:00 104 05/06/16 04:13 94 70 05/06/16 04:00 100 Bi-Pap 70 05/06/16 04:00 118 05/06/16 04:00 98.4 118 16 101/66 98 05/06/16 02:00 81 05/06/16 01:25 93 70 05/06/16 00:00 100 Bi-Pap 70 05/06/16 00:00 77 05/06/16 00:00 98.7 77 12 108/54 100 05/05/16 22:10 97 80 05/05/16 22:00 83 05/05/16 20:00 98 Non-Rebreather 15.00 05/05/16 20:00 98.1 102 20 113/53 91 05/05/16 20:00 93 05/05/16 19:50 95 Non-Rebreather 15.00 100 05/05/16 18:00 108 05/05/16 16:00 129 05/05/16 16:00 99.6 129 19 99/70 99 05/05/16 16:00 98 Non-Rebreather 15.00 I/O 05/05/16 05/05/16 05/05/16 05/06/16 05/06/16 05/06/16 07:00 15:00 23:00 07:00 15:00 23:00 Intake Total 485 ml 481 ml 285 ml 301 ml Output Total 350 ml 1550 ml 1750 ml 450 ml Balance 135 ml -1069 ml -1465 ml -149 ml Intake Oral 125 ml 240 ml 150 ml 150 ml IV Total 360 ml 241 ml 135 ml 151 ml Output Urine Total 350 ml 1550 ml 1650 ml 450 ml Stool Total 100 ml 0 ml # Bowel Movements 1 1 Result Diagram: 05/06/16 0502 05/06/16 0502 Imaging Last Impressions Chest X-Ray 05/04/16 0600 Signed Impressions: Service Date/Time: Wednesday, May 04, 2016 03:30 - CONCLUSION: Unchanged bilateral pulmonary infiltrates and small effusions. Cardiomegaly. Aurelio Gonzalez Jr., MD Head CT 04/19/16 0000 Signed Impressions: Service Date/Time: Tuesday, April 19, 2016 11:37 - CONCLUSION: Cortical atrophy and microvascular ischemic demyelinative change. No acute intracranial abnormality is seen. Reinier Archuleta MD Objective Remarks anicteric lungs- decreased breath sounds, no rales, or wheezes regular rhythm abdomen soft nontender extremities no edema Date of Insertion: Apr 19, 2016 Line: Central Venous Catheter Location: Subclavian A/P Problem List: (1) Sepsis ICD Code: A41.9 Status: Acute (2) Diabetes ICD Code: E11.9 Status: Chronic (3) UTI (urinary tract infection) ICD Code: N39.0 Status: Acute (4) Hypokalemia ICD Code: E87.6 Status: Acute (5) Pneumonia ICD Code: J18.9 Status: Acute (6) Metabolic encephalopathy ICD Code: G93.41 Status: Acute (7) Acute respiratory failure ICD Code: J96.00 Status: Acute Assessment and Plan 70 year-old female with: Pulmonary: Acute respiratory failure Right lung mucous plug Pneumonia COPD Extubated on 04/23 however reintubated on 04/24 extubated 04/28 Continue with oxygen keep sat >92% DuoNeb every 4 hours and as needed and q6 hrs. Start solumedrol. taper nebs and steroid as tolerated. Add mucomyst. Add IS and acapella. Suction as need, continue pulmonary toilet. History of CHF Dementia Hypokalemia. Dementia Awake and alert. Head CT negative for bleed. Seen by neurology Dr. Dixon. Cardiovascular: Septic shock (resolved) Coronary artery disease on Cardizem 30mg QID for rate control- monitor HR and BP keep MAP>65mmHg. On Plavix. Echo 01/31 EF 55-60% Hypokalemia: replace by IV KCL po elixir 20 meq bid FEN/renal: Monitor renal function, I/O's, electrolytes replacement per protocol. ID: UTI- E.coli Healthcare associated pneumonia On Zosyn since 04/19. d/c after today's dose. Monitor for signs of infections ( Fever, WBC) C-diff PCR negative 04/27 Microbiology: 04/19blood culture 2 setsno growth 1220urine Legionella and pneumococcal antigen negative 04/19urine culture positive for Escherichia coli sensitive to Zosyn. 03/2016influenza A and B antigen negative 04/22sputum cultureno growth to date 04/24sputum cultureGram stain with no organisms. Endocrine: Medium dose SSI with bedside glucose every 6 hours, Heme: Monitor CBC, s/p transfusion 1u PRBC 04/26 Guaiac stool for heme negative. Prophylaxis: Zantac for stress ulcer prophylaxis/SCDs/Lovenox 40 mg SQ daily. Lines: Right subclavian central line (04/19) d/c central line and place peripheral IV's. PICC line for IV abx and IVF Sinus tachycardia with episodes of WCT 05/05- in SR rate 104 Lopressor 2.5 mg IV q 8 discuss with her Code status-- DNR Appreciate palliative care ff along with us Problem Qualifiers (1) Pneumonia: Qualified Code: J18.1 - Pneumonia of right upper lobe due to infectious organism (2) Acute respiratory failure: Qualified Code: J96.00 - Acute respiratory failure, unspecified whether with hypoxia or hypercapnia Agnieszka Guillory MD May 06, 2016 14:29 Qualified Code: J96.00 - Acute respiratory failure, unspecified whether with hypoxia or hypercapnia Agnieszka Guillory MD May 06, 2016 14:29
[2016-05-06] MEDS: LEVOFLOXACIN 500 MG PREMIX INJ 100 ML IV SCH (14:30)
[2016-05-06] MEDS: METOPROLOL TARTRATE 5 MG/5 ML VIAL IV PUSH SCH ×2 (14:30→21:09)
[2016-05-06] MEDS ORDERED: POTASSIUM CHLOR 20 MEQ PREMIX 100 ML IV ONE (14:45)
[2016-05-06] MEDS: ENOXAPARIN SODIUM 40 MG/0.4 ML SYRINGE SQ SCH (15:00)
--- NOTE | 2016-05-06 15:47 | HHI.HCPN ---
Reason for visit a. To assist with evaluation and management of symptoms including: Pain; dyspnea b. To assist medical decision maker(s) with: better understanding of current medical conditions; weighing benefits/burdens of medical treatment options; making medical treatment decisions. . Subjective/Interval History Patient is sleeping soundly at time of my visit. Nurse reports she was on BiPAP all night. She is managing today on a non-rebreather mask. Nurse reports she is asking everyone to just allow her to . She has had some intermittent pain which she told nurse was in her back. She received 2 mg of IV morphine for pain at 19:16 last night and again at 12:41 today. Pain levels were #8 and #7 respectively and she was able to fall to sleep after both doses. At time of my visit, patient is sleeping soundly. She stirs to voice/exam, but does not awaken. I have spoken at length with the patient's verbally designated Health Care Surrogate -- her sister Marcela. See below. From Dr. Loyola's initial palliative care consultation from 05/05/16.... History is challenging. Patient can only tolerate short periods of time off BiBAP. I took the opportunity to have her verbally designate a health care surrogate; and to discuss goals of treatment. I could not get family history, ROS, psychosocial/spritual history, etc. Ms Andrade is a 70 y/o female with a known past medical history including hypertension; hyperlipidemia; depression; peripheral neuropathy; DM; dementai; COPD; and CAD who was sent to the emergency department at [facility] from [facility] on 04/19/2016 because of altered mental status. She was brought in as a "stroke alert.". Per the facility staff, the patient was awake and alert and conversing on the morning of admission. At 11 AM she become almost completely unresponsive. Blood sugar was normal when checked by the paramedics. The [facility] since . Her previous admission to [facility] was in January 2016 for respiratory failure with NSTEMI and new onset CHF on top of her underlying COPD. Initial vital signs upon emergency department presentation were as follows: Temperature 97.6; pulse 98; respiratory rate 16; blood pressure 158/63; pulse oximetry 94% Initial evaluation by the emergency department physician noted the following: Patient is obese and in no acute distress. The patient was unresponsiveshe was unable to follow any commands or answer any questions. She was nonverbal. There was no gaze deficit. There is no facial palsy. There were no spontaneous movements of the extremities. There was no response to noxious stimulus. The remainder of the exam was unremarkable. Initial diagnostic testing revealed the following: * CBC showed WBC 15.4; hemoglobin 10.7; platelet count 225 * Coagulation profile showed PT 12.2; INR 1.1; PTT 31.3 * Metabolic profile showed sodium 140; potassium 4.2; chloride 98; BUN 24; creatinine 0.7; glucose 173; lactic acid 0.7 * Urinalysis showed trace glucose; positive urine nitrites; large leukocyte esterase; 62 WBCs; moderate WBC clumps; many bacteria * Cardiac serology showed total CK 19; troponin less than 0.02 * ABGs on the ventilator at 100% FiO2 showed pH 7.39; PCO2 54; PCO2 165; bicarbonate 32; base excess 7.5 * EKG showed sinus rhythm with some PVCs but no significant ST-T wave abnormalities. * CT of the brain was negative for any acute abnormalities * Chest x-ray showed a right sided infiltrate. In the emergency department the patient was empirically started on Zosyn and vancomycin. There was loss of a gag reflex and the patient was intubated and placed on mechanical ventilation. The case was discussed with neurology and the patient was not considered to be a candidate for TPA as there is still a question whether this was stroke or perhaps just severe sepsis. Critical care was consulted and the patient was admitted to the medical intensive care unit. Blood cultures, Legionella antigen, strep pneumonia antigen and influenza antigens were all negative. The patient's urine grew out Escherichia coli. The patient became hypotensive the night of admission. She required fluid boluses and norepinephrine pressor support. A right subclavian central line was placed. The patient was weaned from the norepinephrine and extubated on . Unfortunately on the evening of 04/24 she decompensated again and required re-intubation. CXR revealed atelectasis involving the right lung. Emergency bronchoscopy was performed with significant mucous plugging noted on the right. Bronchial lavage was performed and there was improvement on chest x- ray. Hypotension followed reintubation and the patient was restarted on the levo fed. The patient gradually improved. The norepinephrine was again weaned. The patient was extubated on 04/29/16. The patient was transferred to the hospitalist service but remained in the medical ICU. She has not been able to "turn the corner" and recover. She is currently requiring BiPAP periodically. Earlier today she had a dysrhythmia that appeared to be V-tach. I have spoken personally with Dr. Lopez, her pulmonary consult, who feels her lung disease is not likely going to improve significantly. He felt she would be an appropriate candidate for hospice if her goals were primarily comfort oriented. I saw the patient along with Dr. Guillory. We discussed resuscitation status together and the patient was able to tell us on two separate occasions that she would not want to be resuscitated. We spoke about ongoing aggressive care vs comfort oriented care. She indicated she would be interested in comfort care at this time. I inquired about a health care decision maker. She indicated that if she were unable to make her own decisions, she would want her sister -- Marcela -- to make her health care decisions for her. . . . Family/friend interactions I spoke to patient's sister Marcela Herrera and brother Grayson Zambrano Jr. asiya Herrera this afternoon for about 25 minutes. They provided additional history and information: Psychosocial/spiritual History: * Patient has lived in [facility] most of her life. * She completed high school. 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 * She has three children -- sons Aron and Zaheer and daughter Steffany. They live in [place] * She has three siblings -- brother Grayson, and sisters Marcela and Gracie. They live in [place]. * Sabianist and spirituality were not an important part of her life. * Sister, Marcela, is comfortable with being the health care surrogate. She tells me that Steffany has been the closest child and that Steffany usually refers to Marcela as Marcela is more comfortable with medical issues. Marcela is in close contact with Steffany. Medical / Functional * Patient was a heavy smoker -- at least 2-3 packs per day for most of adult life. She had alcohol every day but alcohol never appeared to be a problem for her. No know use of illicits. * Patient would have times when she seems cognitively sharp, and other times when she appears confused. * Family reports that the patient has been mostly bedbound at her fpc. They feel she lost her will to live long ago. Her stated wishes to be DNR and to forego further aggressive care are very consistent with what have been her stated goals. Health care surrogate supports hospice enrollment and would like to get patient in hospice care closer to [place]. Family Hx: * Father and mother of myocardial infarctions. No other family illnesses known to run in the family. . Advance Directives Living Will: Never completed Health Care Surrogate: Never completed Durable Power of Newspaper Editor Managing: Never completed Advance Directive Specifics Date completed: Not completed . Health Care Surrogate(s): Patient has verbally stated on 05/05/16 that she wanted her sister Marcela to serve as her surrogate. This was witnessed by myself and by Dr. Guillory. . Documented care wishes: No written documentation of health care goals/preferences. . Significant change in goals: Patient has asked to be allowed to . She wants comfort measures. Health care surrogate was contacted on 05/06/15 and she told us that these stated wishes were quite consistent for patient. Health care surrogate agreed to hospice consult. . Objective Vital Signs Date Time Temp Pulse Resp B/P Pulse Ox O2 Delivery O2 Flow Rate FiO2 05/06/16 10:56 96 Non-Rebreather 15.00 05/06/16 06:00 104 05/06/16 04:13 94 70 05/06/16 04:00 100 Bi-Pap 70 05/06/16 04:00 118 05/06/16 04:00 98.4 118 16 101/66 98 05/06/16 02:00 81 05/06/16 01:25 93 70 05/06/16 00:00 100 Bi-Pap 70 05/06/16 00:00 77 05/06/16 00:00 98.7 77 12 108/54 100 05/05/16 22:10 97 80 05/05/16 22:00 83 05/05/16 20:00 98 Non-Rebreather 15.00 05/05/16 20:00 98.1 102 20 113/53 91 05/05/16 20:00 93 05/05/16 19:50 95 Non-Rebreather 15.00 100 05/05/16 18:00 108 05/05/16 16:00 129 05/05/16 16:00 99.6 129 19 99/70 99 05/05/16 16:00 98 Non-Rebreather 15.00 Intake & Output 05/06/16 05/06/16 07:00 19:00 Intake Total 586 ml Output Total 2200 ml Balance -1614 ml Intake Oral 300 ml IV Total 286 ml Output Urine Total 2100 ml Stool Total 100 ml . Physical Exam CONSTITUTIONAL/GENERAL: This is an adequately nourished patient in an MICU bed with non-rebreather mask in place. . She is sleeping soundly -- she stirs to voice/exam, but does not awaken (medicated rNon -rebreather mask ; de leon catheter; rectal tube; peripheral IV; SKIN: No jaundice, rashes, or lesions. Skin tear on left wrist, otherwise, no wounds seen anteriorly. Skin temperature appropriate. Not diaphoretic. EYES: Pupils equal and round. No scleral icterus. No injection or drainage. Fundi not examined. ENT: Nose without bleeding or purulent drainage. Throat without visible erythema , exudates, masses, or lesions. NECK: Trachea midline. CARDIOVASCULAR: Irregegularly irregular rhythm without murmurs, gallops, or rubs. No JVD. RESPIRATORY/CHEST: Symmetric, unlabored respirations. Scattered ronchi greater on right. Breath sounds diminished bilaterally particularly at bases. . No wheezes. GASTROINTESTINAL: Abdomen soft, non-tender, nondistended. No hepato-splenomegaly , or palpable masses. No guarding. Bowel sounds present. GENITOURINARY: Without palpable bladder distension. De Leon catheter in place. MUSCULOSKELETAL: Patient has a left AKA. Stump without lesions. Extremities otherwise without clubbing, cyanosis, or edema. Right foot contracture. LYMPHATICS:Not examined. NEUROLOGICAL: Sleeping soundly. PSYCHIATRIC: Unable to assess. . . Diagnostic Tests Laboratory Laboratory Tests Test 05/04/16 05/04/16 05/04/16 05/06/16 04:43 11:55 15:00 05:02 White Blood Count 8.4 TH/MM3 11.1 TH/MM3 (4.0-11.0) (4.0-11.0) Red Blood Count 3.68 MIL/MM3 3.42 MIL/MM3 (4.00-5.30) (4.00-5.30) Hemoglobin 10.3 GM/DL 9.3 GM/DL (11.6-15.3) (11.6-15.3) Hematocrit 33.4 % 29.3 % (35.0-46.0) (35.0-46.0) Mean Corpuscular Volume 90.8 FL 85.6 FL (80.0-100.0) (80.0-100.0) Mean Corpuscular Hemoglobin 27.9 PG 27.1 PG (27.0-34.0) (27.0-34.0) Mean Corpuscular Hemoglobin 30.7 % 31.7 % Concent (32.0-36.0) (32.0-36.0) Red Cell Distribution Width 19.9 % 18.8 % (11.6-17.2) (11.6-17.2) Platelet Count 242 TH/MM3 296 TH/MM3 (150-450) (150-450) Mean Platelet Volume 10.8 FL 10.2 FL (7.0-11.0) (7.0-11.0) Neutrophils (%) (Auto) 77.2 % 85.0 % (16.0-70.0) (16.0-70.0) Lymphocytes (%) (Auto) 11.3 % 6.4 % (9.0-44.0) (9.0-44.0) Monocytes (%) (Auto) 10.8 % 8.0 % (0.0-8.0) (0.0-8.0) Eosinophils (%) (Auto) 0.5 % (0.0-4.0) 0.4 % (0.0-4.0) Basophils (%) (Auto) 0.2 % (0.0-2.0) 0.2 % (0.0-2.0) Neutrophils # (Auto) 6.5 TH/MM3 9.5 TH/MM3 (1.8-7.7) (1.8-7.7) Lymphocytes # (Auto) 1.0 TH/MM3 0.7 TH/MM3 (1.0-4.8) (1.0-4.8) Monocytes # (Auto) 0.9 TH/MM3 0.9 TH/MM3 (0-0.9) (0-0.9) Eosinophils # (Auto) 0.0 TH/MM3 0.0 TH/MM3 (0-0.4) (0-0.4) Basophils # (Auto) 0.0 TH/MM3 0.0 TH/MM3 (0-0.2) (0-0.2) CBC Comment DIFF FINAL DIFF FINAL Differential Comment Sodium Level 138 MEQ/L 137 MEQ/L (136-145) (136-145) Potassium Level 3.0 MEQ/L 3.0 MEQ/L (3.5-5.1) (3.5-5.1) Chloride Level 96 MEQ/L 88 MEQ/L (98-107) (98-107) Carbon Dioxide Level 33.8 MEQ/L 37.7 MEQ/L (21.0-32.0) (21.0-32.0) Anion Gap 8 MEQ/L (5-15) 11 MEQ/L (5-15) Blood Urea Nitrogen 4 MG/DL (7-18) 8 MG/DL (7-18) Creatinine 0.41 MG/DL 0.59 MG/DL (0.50-1.00) (0.50-1.00) Estimat Glomerular Filtration 153 ML/MIN 101 ML/MIN Rate (>89) (>89) Random Glucose 139 MG/DL 120 MG/DL (74-106) (74-106) Calcium Level 8.1 MG/DL 8.1 MG/DL (8.5-10.1) (8.5-10.1) Blood Gas Puncture Site LT BRACHIAL RT BRACHIAL Blood Gas Patient Temperature 98.6 98.6 Blood Gas HCO3 35 mmol/L 34 mmol/L (22-26) (22-26) Blood Gas Base Excess 9.7 mmol/L 9.1 mmol/L (-2-2) (-2-2) Blood Gas Oxygen Saturation 91 % (90-100) 94 % (90-100) Arterial Blood pH 7.41 7.43 (7.380-7.420) (7.380-7.420) Arterial Blood Partial 56 mmHg (38-42) 52 mmHg (38-42) Pressure CO2 Arterial Blood Partial 66 mmHg 79 mmHg Pressure O2 (61-120) (61-120) Arterial Blood Oxygen Content 12.7 Vol % 12.9 Vol % (12.0-20.0) (12.0-20.0) Arterial Blood 1.5 % (0-4) 1.4 % (0-4) Carboxyhemoglobin Arterial Blood Methemoglobin 1.0 % (0-2) 0.5 % (0-2) Blood Gas Hemoglobin 9.8 G/DL 9.7 G/DL (12.0-16.0) (12.0-16.0) Oxygen Delivery Device BiPAP BiPAP Blood Gas Ventilator Setting IPAP10/EPAP5 IPAP14/EPAP7 Blood Gas Inspired Oxygen 70 % 100 % Magnesium Level 1.4 MG/DL (1.5-2.5) . Result Diagram: 05/06/16 0502 05/06/16 0502 Microbiology * Urine cx from 04/19/16 --> E coli * Blood cx from 04/19/16 --> no growth * Hemoccult negative x 3. . Imaging Last Impressions Chest X-Ray 05/04/16 0600 Signed Impressions: Service Date/Time: Wednesday, May 04, 2016 03:30 - CONCLUSION: Unchanged bilateral pulmonary infiltrates and small effusions. Cardiomegaly. Aurelio Gonzalez Jr., MD Head CT 04/19/16 0000 Signed Impressions: Service Date/Time: Tuesday, April 19, 2016 11:37 - CONCLUSION: Cortical atrophy and microvascular ischemic demyelinative change. No acute intracranial abnormality is seen. Reinier Archuleta MD . Procedures * Intubation/mechanical ventilation * Central line placement. * Bronchoscopy * Bronchoalveolar lavage . Assessment and Plan Disease Oriented Problem List: (1) Respiratory failure (2) COPD (chronic obstructive pulmonary disease) (3) Pneumonia Comment: Bibasilar pneumonia . (4) UTI (urinary tract infection) Comment: E. coli grew out of admission urine culture. . (5) Diabetes (6) Peripheral vascular disease (7) GERD (gastroesophageal reflux disease) (8) Hypoalbuminemia due to protein-calorie malnutrition (9) Hyperlipidemia (10) Peripheral neuropathy (11) Anemia (12) Hypertension (13) Macular degeneration (14) Unilateral AKA Symptom Scale: (1) Pain 0-10 Scale: Unable to quantify Comment: Complains of pain intermittently. Mostly poorly localized back pain. Has known peripheral neuropathy in her lower extremity. Other sources of pain might include de leon cathter; BiPAP mask; vascular catheters; prolonged bedbound status. Pain responds well to morphine 2 mg iv. . (2) Dyspnea 0-10 Scale: Unable to quantify Comment: Intermittent dyspnea. Cannot quantify. Comfortable on non- rebreather at this time. . . Pertinent Non-Medical Issues Psychosocial: nursing home resident of [facility]. Has siblings and children in [facility]. Sister -- Marcela -- is closest relative. Spiritual: Sabianist and spirituality have not been an important part of her life. Legal: No written advance directives available. Patient has verbally stated that she wants her sister to serve as health care surrogate. SHe has requested DNR status. Ethical issues impacting care: Patient is reportedly intermittently confused. At time of my visit she had insight into her illness and was felt to be capacitated to make her own health care decisions. . Important Contacts * Steffany Carey (daughter) [phone]; C: [phone] * Marcela Herrera (daughter) [phone] . Prognosis This 71 y/o female who [facility] came in as a " stroke alert" but her altered mental status was felt to be due to sepsis. Her hospital course has been very alley and she has been intubated and extubated twice. She continues to need intermittent BiPAP and as of 05/05/16 she was beginning to show some ventricular dysrhythmias. Ms. Andrade, who has DM, peripeheral neuropathy, peripheral vascular disease s/p Left AKA, was also admitted last January for a NSTEMI with accompanying CHF. Patient wants comfort measures only and her family reports that is very consistent with previously stated health care goals/preferences. Her physician office clin asst believes her prognosis from a pulmonary status is poor. In my clinical opinion life expectancy is less than 6 months if the disease were to follow its normal course. . Code Status: No Code (Per patient's stated preference.) Plan == Code status: NO CODE per patient's stated preference. == Decision maker: Patient appeared capacitated to make her own health care decisions at time of my visit today. Family reports she can be confused at times. Should she become incapacitated she has requested that her sister -- Marcela -- be her health care surrogate and Marcela agrees to assume this role. As the patient does have intermittent confusion, I would recommend that major decisons be shared decisions with her surrogate. == Goals of medical treatment. Patient has asked for DNR status. She has indicated that comfort is her more important goal. She indicated she felt she would prefer to focus on comfort and leave the rest in God's hands. Per her health care surrogate, these goals/preferences are quite consistent with previously stated health care goals/preferences. == Pain: Patient has been complaining of pain (mostly back pain?) . She has a difficult time quantifying/qualifying pain. Morphine 2 mg IV is working well for pain control . No further recommendations at this time. == Dyspnea: Currently reasonably controlled with respiratory support, nebs, steroids. == Disposition: Based on stated goals/preferences and prognosis, patient is hospice eligible. Family would like patient in a hospice facility close to them in [place] if possible. Have asked Case Management to consult [facility] to see if they have a room and will accept patient to their hospice inpatient unit in [place]. If they cannot accommodate her in their inpatient unit, we will accept her in one of [facility] inpatient units in [facility]. From my perspective, discharge could take place as soon as placement can be arranged for the hospice inpatient unit. == Sister Marcela let me know that she would keep the patient's children informed. == Palliative care will continue to follow to assist with symptom management and to further clarify goals of treatment as the clincal course evolves. . Time Spent Total Floor Time (mins): 50 (Total floor time included chart review; patient exam; above referenced phone conversation with sister and brother; collaboration with case management; collaboration with primary nurse. ) Face to Face Time (mins): 10 >50% Counseling/Coord of Care: Yes Attestation To help prompt me to consider important information that might be impacting today's encounter and assessment, information from prior notes written by myself or my colleagues may have been "brought forward" into today's note. My signature on this note, however, is an attestation that I personally performed the exam, history, and/or decision-making noted today, and, unless otherwise indicated, the interactions with patient, family, and staff as well as the review of records all occurred today. I also attest that the listed assessment and stated plan reflect my best clinical judgment today based on the combination of historical information, prior notes, and today's exam/ interactions. When time spent is documented, it refers only to time spent today by the signer, or if indicated, combined time spent today by collaborating physician/nurse practitioner. . Veto Loyola MD May 06, 2016 15:47
[2016-05-07] VITALS (12 sets, daily range): BP systolic 99–130; BP diastolic 49–65; PULSE 75–123; RESP 18–24; TEMP 98.3–98.9; O2SAT 90–96
[2016-05-07] MEDS: PIPERACIL-TAZO 4.5 GM PREMIX 100 ML IV SCH ×4 (00:19→16:56)
[2016-05-07] MEDS: MORPHINE SULFATE 4 MG/ML INJ IV PUSH PRN (01:39)
[2016-05-07] MEDS: CHLORHEXIDINE GLUCONATE 2 % 1 PACK (2 CLOTHS) TOP SCH (04:00)
--- NOTE | 2016-05-07 04:44 | RADRPT ---
EXAM DATE/TIME: 05/07/2016 03:18 [facility] COMPARISON: CHEST SINGLE AP, May 04, 2016, 11:42. INDICATIONS : Shortness of breath, possible pulmonary disease. MEDICAL HISTORY : None. SURGICAL HISTORY : None. ENCOUNTER: Subsequent ACUITY: 2 weeks PAIN SCORE: Non-responsive. LOCATION: Bilateral chest FINDINGS: Interval development of ill-defined areas of consolidative infiltrate in the right lower lung with lo ss of delineation of the entire right hemidiaphragm and right heart border. Opacities at the left ba se characteristic of a combination of pleural effusion and infiltrates is similar in severity to prio r exam. CONCLUSION: There is new consolidation right mid and lower lung and stable infiltrates in the left lower lung. Aurelio Argueta MD on May 07, 2016 at 4:41 Board Certified Radiologist. This report was verified electronically.
[2016-05-07] MEDS: METOPROLOL TARTRATE 5 MG/5 ML VIAL IV PUSH SCH ×2 (05:43→15:16)
[2016-05-07] MEDS: INSULIN ASPART SUPPLEMENTAL SCALE SQ SCH ×4 (05:43→17:51)
[2016-05-07] MEDS: CHLORHEXIDINE 0.12% (ORAL KIT) 15 ML CUP MT SCH ×2 (08:00→20:00)
[2016-05-07] MEDS: DILTIAZEM HCL 30 MG TAB PO SCH ×3 (09:00→16:56)
[2016-05-07] MEDS: SODIUM CHLORIDE 0.9% FLUSH 5 ML FLUSH IVF SCH ×2 (09:18→20:33)
[2016-05-07] MEDS: ESCITALOPRAM OXALATE 10 MG TAB PO SCH (09:18)
[2016-05-07] MEDS: POTASSIUM CHLORIDE 20 MEQ CONTROLLED RELEASE TAB PO SCH ×3 (09:18→16:57)
[2016-05-07] MEDS: RANITIDINE HCL SYRUP 150 MG/10 ML UDC TUBE SCH (09:18)
[2016-05-07] MEDS: predniSONE 20 MG TAB PO SCH (09:18)
[2016-05-07] MEDS: FUROSEMIDE 40 MG/4 ML VIAL IV PUSH SCH ×2 (09:18→16:56)
[2016-05-07] MEDS: POTASSIUM CHLOR 20 MEQ PREMIX 100 ML IV PRN (09:19)
--- NOTE | 2016-05-07 10:57 | HHI.PR ---
Subjective Remarks patient is awake, appears comfortable at 100% NRB she denies any pain moves all extremities and ff all commands waved at me when I left the room Objective Vitals Vital Signs Date Time Temp Pulse Resp B/P Pulse Ox O2 Delivery O2 Flow Rate FiO2 05/07/16 08:00 98.3 77 24 109/51 95 05/07/16 08:00 Non-Rebreather 15.00 100 05/07/16 08:00 75 05/07/16 06:00 89 05/07/16 04:00 100 05/07/16 04:00 99 Non-Rebreather 10.00 05/07/16 04:00 98.7 100 19 116/56 96 05/07/16 02:02 15 05/07/16 02:00 107 05/07/16 00:00 86 05/07/16 00:00 95 Non-Rebreather 10.00 05/07/16 00:00 98.9 86 18 120/65 91 05/06/16 22:00 84 05/06/16 20:00 76 05/06/16 20:00 98.4 98 16 130/60 96 05/06/16 20:00 99 Non-Rebreather 15.00 05/06/16 19:11 100 Non-Rebreather 15.00 05/06/16 18:00 93 05/06/16 16:00 98.1 97 15 110/59 99 05/06/16 16:00 97 05/06/16 16:00 99 Partial Non-Rebreather 70 Non-Rebreather 05/06/16 14:00 93 05/06/16 12:00 98.9 136 21 115/56 88 05/06/16 12:00 114 05/06/16 10:56 96 Non-Rebreather 15.00 I/O 05/06/16 05/06/16 05/06/16 05/07/16 05/07/16 05/07/16 07:00 15:00 23:00 07:00 15:00 23:00 Intake Total 301 ml 302 ml 258 ml 233 ml Output Total 450 ml 900 ml 1500 ml 101 ml Balance -149 ml -598 ml -1242 ml 132 ml Intake Oral 150 ml 120 ml 100 ml 100 ml IV Total 151 ml 182 ml 158 ml 133 ml Output Urine Total 450 ml 800 ml 1500 ml 100 ml Stool Total 0 ml 100 ml 0 ml 1 ml Result Diagram: 05/06/16 0502 05/06/16 0502 Imaging Last Impressions Chest X-Ray 05/04/16 0600 Signed Impressions: Service Date/Time: Wednesday, May 04, 2016 03:30 - CONCLUSION: Unchanged bilateral pulmonary infiltrates and small effusions. Cardiomegaly. Aurelio Gonzalez Jr., MD Head CT 04/19/16 0000 Signed Impressions: Service Date/Time: Tuesday, April 19, 2016 11:37 - CONCLUSION: Cortical atrophy and microvascular ischemic demyelinative change. No acute intracranial abnormality is seen. Reinier Archuleta MD Objective Remarks anicteric lungs- decreased breath sounds, no rales, or wheezes regular rhythm abdomen soft nontender extremities no edema, S/P left AKA- stump Date of Insertion: Apr 19, 2016 Line: Central Venous Catheter Location: Subclavian A/P Problem List: (1) Sepsis ICD Code: A41.9 Status: Acute (2) Diabetes ICD Code: E11.9 Status: Chronic (3) UTI (urinary tract infection) ICD Code: N39.0 Status: Acute (4) Hypokalemia ICD Code: E87.6 Status: Acute (5) Pneumonia ICD Code: J18.9 Status: Acute (6) Metabolic encephalopathy ICD Code: G93.41 Status: Acute (7) Acute respiratory failure ICD Code: J96.00 Status: Acute Assessment and Plan 70 year-old female with: Pulmonary: Acute respiratory failure Right lung mucous plug Pneumonia COPD Extubated on 04/23 however reintubated on 04/24 extubated 04/28 Continue with oxygen keep sat >92% DuoNeb every 4 hours and as needed and q6 hrs. Steroids Add mucomyst. Add IS and acapella. Suction as need, continue pulmonary toilet. still high fi02 requirement History of CHF Dementia Hypokalemia. Dementia Awake and alert. Head CT negative for bleed. Seen by neurology Dr. Dixon. Cardiovascular: Septic shock (resolved) Coronary artery disease on Cardizem 30mg QID for rate control- monitor HR and BP keep MAP>65mmHg. On Plavix. Echo 01/31 EF 55-60% Hypokalemia: replace by IV KCL po elixir 20 meq bid will not do any more repeat lab works FEN/renal: Monitor renal function, I/O's, electrolytes replacement per protocol. ID: UTI- E.coli [facility] associated pneumonia On Zosyn since 04/19. d/c after today's dose. Monitor for signs of infections ( Fever, WBC) C-diff PCR negative 04/27 Microbiology: 04/19blood culture 2 setsno growth 1220urine Legionella and pneumococcal antigen negative 04/19urine culture positive for Escherichia coli sensitive to Zosyn. 03/2016influenza A and B antigen negative 04/22sputum cultureno growth to date 04/24sputum cultureGram stain with no organisms. Endocrine: Medium dose SSI with bedside glucose every 6 hours, Heme: Monitor CBC, s/p transfusion 1u PRBC 04/26 Guaiac stool for heme negative. Prophylaxis: Zantac for stress ulcer prophylaxis/SCDs/Lovenox 40 mg SQ daily. Lines: Right subclavian central line (04/19) d/c central line and place peripheral IV's. PICC line for IV abx and IVF Sinus tachycardia with episodes of WCT 05/05- in SR rate 104 Lopressor 2.5 mg IV q 8 05/06 discuss with her Code status-- DNR Appreciate palliative care ff along with us HOVF consulted. hopefully Hospice care center today if arranged with Hospice and family Problem Qualifiers (1) Pneumonia: Qualified Code: J18.1 - Pneumonia of right upper lobe due to infectious organism (2) Acute respiratory failure: Qualified Code: J96.00 - Acute respiratory failure, unspecified whether with hypoxia or hypercapnia Agnieszka Guillory MD May 07, 2016 10:57
[2016-05-07] MEDS: ENOXAPARIN SODIUM 40 MG/0.4 ML SYRINGE SQ SCH (15:16)
[2016-05-07] MEDS: LEVOFLOXACIN 500 MG PREMIX INJ 100 ML IV SCH (15:16)
[2016-05-07] MEDS ORDERED: RESP: IPRATROPIUM 0.5 MG/2.5 ML NEB NEB SCH (16:00)
--- NOTE | 2016-05-07 16:54 | HHI.DS ---
Discharge Summary Admission Date Apr 19, 2016 at 13:02 Discharge Date: May 07, 2016 Admitting Diagnosis acute resp failure, RUL pna, severe sepsis (1) Sepsis ICD Code: A41.9 Diagnosis: Principal (2) Diabetes ICD Code: E11.9 Diagnosis: Secondary (3) UTI (urinary tract infection) ICD Code: N39.0 Diagnosis: Secondary (4) Hypokalemia ICD Code: E87.6 Diagnosis: Secondary (5) Pneumonia ICD Code: J18.9 Diagnosis: Secondary (6) Metabolic encephalopathy ICD Code: G93.41 Diagnosis: Secondary (7) Acute respiratory failure ICD Code: J96.00 Diagnosis: Secondary Procedures none Brief History - From Admission Patient is a 70-year-old female with past medical history of HTN, HLD, DM, dementia, COPD, CAD who presents the emergency department for altered mental status as a stroke alert. Reportedly per patient's care facility, [facility] and [facility], patient was awake and alert and conversing this morning. At approximately 11 AM her mental status decompensated, she became essentially completely unresponsive and EMS was called. Blood glucose was normal. Reportedly last seen normal at 11 AM. No focal deficit of the extremities, but patient was entirely nonverbal and given her acute change in mental status a stroke alert was called prehospital. Patient was altered and not able to participate with history or physical examination. She is anticoagulated on Plavix. Patient was evaluated by ER physician and in view of inability to protect airway and unresponsiveness was intubated and placed on mechanical ventilation. She received a 10 mg and succinylcholine 150 mg for intubation however following that has not required any sedation. Chest x-ray showed right upper lobe infiltrate, head CT was negative for bleed. Case was discussed by ER physician and neurology Dr. Dixon, patient was not deemed to be a candidate for TPA and there was a question whether this was a stroke or sepsis with pneumonia/UTI causing altered mental status. Patient was accepted for admission by critical care medicine service. When I evaluated the patient she was orally intubated on mechanical ventilation essentially unresponsive. History was obtained by discussion with ER physician and reviewing records. History PFSH Past Medical History Depression: Yes Congestive Heart Failure: Yes COPD: Yes Diabetes: Yes Diminished Hearing: No GERD: Yes Hypertension: Yes Neurologic: Yes (NEUROPATHY) ?: Not Past Surgical History Other Surgery: Yes (Ramakrishna BERUMEN) Social History Alcohol Use: No Tobacco Use: No Substance Use: No Allergies-Medications Allergies-Medications (Allergen,Severity, Reaction): Coded Allergies: Aspirin (Unverified Adverse Reaction, Unknown, 01/31/16) Reported Meds & Prescriptions Reported Meds & Active Scripts Active Reported Albuterol Neb (Albuterol Sulfate) 2.5 Mg/3 Ml Neb 1 Vial NEB Q6HR PRN Combivent Respimat Inh (Ipratropium-Albuterol Inh) 20-100 Fdc/Act Aero 1 Puff INH QID Tylenol (Acetaminophen) 325 Mg Tab 650 Mg PO Q4H PRN Percocet (Oxycodone-Acetaminophen) 10-325 mg Tab 1 Tab PO Q6H PRN Senna (Sennosides) 8.6 Mg Tab 17.2 Mg PO HS Lactulose Liq (Lactulose) 10 Gm/15 Ml Soln 30 Ml PO HS Hold for loose stools Carafate (Sucralfate) 1 Gm Tab 1 Gm PO ACHS On empty stomach Nitro-Dur Patch 24 HR (Nitroglycerin) 0.1 Mg/Hr Patch 0.1 Mg T-DERMAL DAILY Prednisone 20 Mg Tab 20 Mg PO DIRECTED Titrating Dose Protonix Liq (Pantoprazole Sodium) 40 Mg Pkt 40 Mg PO DAILY Potassium Chloride Liq (Potassium Chloride) 20 Meq/15 Ml Soln 40 Meq PO DAILY Lasix (Furosemide) 20 Mg Tab 20 Mg PO DAILY Lisinopril 2.5 Mg Tab 2.5 Mg PO BID Hold if SBP <105 or DBP < 65 Coreg (Carvedilol) 3.125 Mg Tab 3.125 Mg PO BID Hold for SBP <100 or DBP <60 Colace (Docusate Sodium) 100 Mg Cap 100 Mg PO BID Hold for loose stool Milk of Magnesia Liq (Magnesium Hydroxide) 400 Mg/5 Ml Susp 30 Ml PO DAILY PRN Omeprazole 40 Mg Cap 40 Mg PO DAILY Glucose Gel (Dextrose) 40 % Gel 1 Tube PO DIRECTED PRN Glucagon Emergency Inj Kit (Glucagon (Rdna) Inj Kit) 1 Mg Kit 1 Mg IM ONCE PRN Glipizide 5 Mg Tab 5 Mg PO DAILY Take 30 minutes before a meal Humalog Inj (Insulin Human Lispro) 1,000 Unit/10 Ml Vial 2-6 Units SQ ACHS Sliding Scale: call md if CBG <60MG?DL or >300MG/DL, 0-59=0 units, notify MD, 60-150=0 units, 151-200=2 units, 201-250=4 units, 251-300=6 units, > 300=6 units/call Lantus Inj (Insulin Glargine) 100 Unit/Ml Inj 15 Units SQ DAILY Plavix (Clopidogrel Bisulfate) 75 Mg Tab 75 Mg PO DAILY Zithromax (Azithromycin) 500 Mg Tab 500 Mg PO DAILY 5 Days Lexapro (Escitalopram Oxalate) 10 Mg Tab 10 Mg PO DAILY ROS Review of Systems ROS Limitations: Clinical Condition, Altered Mental Status CBC/BMP: 05/06/16 0502 05/06/16 0502 Significant Findings Laboratory Tests Test 05/06/16 05:02 White Blood Count 11.1 TH/MM3 (4.0-11.0) Red Blood Count 3.42 MIL/MM3 (4.00-5.30) Hemoglobin 9.3 GM/DL (11.6-15.3) Hematocrit 29.3 % (35.0-46.0) Mean Corpuscular Hemoglobin 31.7 % Concent (32.0-36.0) Red Cell Distribution Width 18.8 % (11.6-17.2) Neutrophils (%) (Auto) 85.0 % (16.0-70.0) Lymphocytes (%) (Auto) 6.4 % (9.0-44.0) Neutrophils # (Auto) 9.5 TH/MM3 (1.8-7.7) Lymphocytes # (Auto) 0.7 TH/MM3 (1.0-4.8) Potassium Level 3.0 MEQ/L (3.5-5.1) Chloride Level 88 MEQ/L (98-107) Carbon Dioxide Level 37.7 MEQ/L (21.0-32.0) Random Glucose 120 MG/DL (74-106) Calcium Level 8.1 MG/DL (8.5-10.1) Magnesium Level 1.4 MG/DL (1.5-2.5) Imaging Last Impressions Chest X-Ray 05/07/16 0600 Signed Impressions: Service Date/Time: Saturday, May 07, 2016 03:18 - CONCLUSION: There is new consolidation right mid and lower lung and stable infiltrates in the left lower lung. Aurelio Argueta MD Head CT 04/19/16 0000 Signed Impressions: Service Date/Time: Tuesday, April 19, 2016 11:37 - CONCLUSION: Cortical atrophy and microvascular ischemic demyelinative change. No acute intracranial abnormality is seen. Reinier Archuleta MD PE at Discharge anicteric lungs- decreased breath sounds, no rales, or wheezes regular rhythm abdomen soft nontender extremities no edema, S/P left AKA- stump Pt update on day of discharge comfortable Hospital Course 70 year-old female with: Pulmonary: Acute respiratory failure Right lung mucous plug Pneumonia COPD Extubated on 04/23 however reintubated on 04/24 extubated 04/28 Continue with oxygen keep sat >92% DuoNeb every 4 hours and as needed and q6 hrs. Steroids Add mucomyst. Add IS and acapella. Suction as need, continue pulmonary toilet. still high fi02 requirement History of CHF Dementia Hypokalemia. Dementia Awake and alert. Head CT negative for bleed. Seen by neurology Dr. Dixon. Cardiovascular: Septic shock (resolved) Coronary artery disease on Cardizem 30mg QID for rate control- monitor HR and BP keep MAP>65mmHg. On Plavix. Echo 01/31 EF 55-60% Hypokalemia: replace by IV KCL po elixir 20 meq bid will not do any more repeat lab works FEN/renal: Monitor renal function, I/O's, electrolytes replacement per protocol. ID: UTI- E.coli Healthcare associated pneumonia On Zosyn since 04/19. d/c after today's dose. Monitor for signs of infections ( Fever, WBC) C-diff PCR negative 04/27 Microbiology: 04/19blood culture 2 setsno growth 1220urine Legionella and pneumococcal antigen negative 04/19urine culture positive for Escherichia coli sensitive to Zosyn. 03/2016influenza A and B antigen negative 04/22sputum cultureno growth to date 04/24sputum cultureGram stain with no organisms. Endocrine: Medium dose SSI with bedside glucose every 6 hours, Heme: Monitor CBC, s/p transfusion 1u PRBC 04/26 Guaiac stool for heme negative. Prophylaxis: Zantac for stress ulcer prophylaxis/SCDs/Lovenox 40 mg SQ daily. Lines: Right subclavian central line (04/19) d/c central line and place peripheral IV's. PICC line for IV abx and IVF Sinus tachycardia with episodes of WCT 05/05- in SR rate 104 Lopressor 2.5 mg IV q 8 05/06 discuss with her Code status-- DNR Appreciate palliative care ff along with us HILARIOVF consulted. hopefully Hospice care center today if arranged with Hospice and family Pt Condition on Discharge: Guarded Discharge Disposition: Hospice/Med Facility Discharge Time: <= 30 minutes Discharge Instructions DIET: Follow Instructions for: Pureed Diet Speech Therapy-Diet Recommends: Pureed Activities you can perform: Continue Shirle[place] Agnieszka Guillory MD May 07, 2016 16:53
== END 2016-05-07 20:00 | disposition hospice, inpatient (51) | DRG 871 ==
LOC: NEPE 11:27 → NEDA 13:02 → HIME 18:20
PROVIDERS: ADMIT Internal Medicine; ATTEND Internal Medicine
PROC: 0BH17EZ Insertion of Endotracheal Airway into Trachea, Via Natural or Artificial Opening (ICD-10-PCS; principal; 2016-04-19)
PROC: 5A1945Z Respiratory Ventilation, 24-96 Consecutive Hours (ICD-10-PCS; 2016-04-19)
PROC: 03HY32Z Insertion of Monitoring Device into Upper Artery, Percutaneous Approach (ICD-10-PCS; 2016-04-20)
PROC: 02HV33Z Insertion of Infusion Device into Superior Vena Cava, Percutaneous Approach (ICD-10-PCS; 2016-04-20)
PROC: 4A133B1 Monitoring of Arterial Pressure, Peripheral, Percutaneous Approach (ICD-10-PCS; 2016-04-20)
PROC: 4A133J1 Monitoring of Arterial Pulse, Peripheral, Percutaneous Approach (ICD-10-PCS; 2016-04-20)
PROC: 0BH17EZ Insertion of Endotracheal Airway into Trachea, Via Natural or Artificial Opening (ICD-10-PCS; 2016-04-24)
PROC: 5A1945Z Respiratory Ventilation, 24-96 Consecutive Hours (ICD-10-PCS; 2016-04-24)
PROC: 0B938ZX Drainage of Right Main Bronchus, Via Natural or Artificial Opening Endoscopic, Diagnostic (ICD-10-PCS; 2016-04-24)
PROC: 30233N1 Transfusion of Nonautologous Red Blood Cells into Peripheral Vein, Percutaneous Approach (ICD-10-PCS; 2016-04-26)
DX: A41.51 Sepsis due to Escherichia coli [E. coli] (principal); J96.01 Acute respiratory failure with hypoxia; R65.21 Severe sepsis with septic shock; G93.41 Metabolic encephalopathy; J18.9 Pneumonia, unspecified organism; T17.890A Other foreign object in other parts of respiratory tract causing asphyxiation, initial encounter; J44.0 Chronic obstructive pulmonary disease with (acute) lower respiratory infection; I50.9 Heart failure, unspecified; E46 Unspecified protein-calorie malnutrition; J98.11 Atelectasis; N39.0 Urinary tract infection, site not specified; B96.20 Unspecified Escherichia coli [E. coli] as the cause of diseases classified elsewhere; F03.90 Unspecified dementia, unspecified severity, without behavioral disturbance, psychotic disturbance, mood disturbance, and anxiety; E11.8 Type 2 diabetes mellitus with unspecified complications; G62.9 Polyneuropathy, unspecified; E88.09 Other disorders of plasma-protein metabolism, not elsewhere classified; I25.10 Atherosclerotic heart disease of native coronary artery without angina pectoris; I10 Essential (primary) hypertension; E87.6 Hypokalemia; E78.5 Hyperlipidemia, unspecified; Z79.84 Long term (current) use of oral hypoglycemic drugs; Z79.4 Long term (current) use of insulin; Z79.52 Long term (current) use of systemic steroids; Z79.02 Long term (current) use of antithrombotics/antiplatelets; K21.9 Gastro-esophageal reflux disease without esophagitis; E66.9 Obesity, unspecified; Z68.35 Body mass index [BMI] 35.0-35.9, adult; Z66 Do not resuscitate; Z51.5 Encounter for palliative care; Z89.612 Acquired absence of left leg above knee; Z87.891 Personal history of nicotine dependence; I25.2 Old myocardial infarction; H35.30 Unspecified macular degeneration; D64.9 Anemia, unspecified; I73.9 Peripheral vascular disease, unspecified
CPT/HCPCS: 31500; 36430; 36556; 36600; 51702; 70450; 71010; 76937; 80048; 80053; 80202; 80301; 81001; 82140; 82272; 82435; 82550; 82565; 82805; 82947; 82948; 83605; 83735; 84100; 84132; 84155; 84295; 84484; 84520; 85007; 85025; 85027; 85384; 85610; 85730; 86850; 86900; 86901; 86920; 87040; 87070; 87077; 87086; 87186; 87205; 87449; 87493; 87641; 87804; 93005; 94002; 94003; 94150; 94640; 94664; 94667; 94668; 95819; G0479; J0330; J1630; J1650; J1815; J1940; J1956; J2250; J2270; J2370; J2405; J2543; J2920; J2930; J3010; J3370; J3475; J3480; J7030; J7040; J7050; J7512; J7608; J7644; P9016